=== PATIENT | male | born 1955 | race Caucasian/White ===

== ENCOUNTER 2022-08-22 10:12 | Outpatient (REF) | payer SELFPAY ==
--- NOTE | 2022-08-22 10:59 | MHC.AU.HFU ---
Hearing Instrument Follow-Up- Binaural Date of Visit: 08/22/22 Follow-Up Summary: Patient has been seeing Dr. Webb for bilateral otitis externa related to swimming. He swims at least 5 days a week and has been having trouble keeping the [id number] ear plugs in his ears. Extensively discussed how inflammation of ear canal may change the shape of the canals which leads to loose fit of the swim molds. Also discussed the molds will not keep water out if he dives, jumps in water, or goes deep in the pool. Patient understands the factors which may lead to the molds not staying in ears and assures the inflammation of canals has resolved. Dr. Webb performed cerumen removal last week and advised these custom swim molds. Took impressions of both ears without complication. Patient wants the floatable swim plugs with hadles in clear. PATIENT PAID $130.00 TODAY. Recommendations: Recommendations: Patient will be contacted when materials have arrived. PATIENT PAID $130.00 TODAY Diagnosis Code(s): Primary Diagnosis: H91.93 Unspecified Hearing Loss, Bilateral Secondary Diagnosis: H69.93 Unspecified Eustachian Tube Dysfunction, Bilateral Services Performed:Swim Mold (Quantity): 2 Signature: Provider: Estela Porter, [facility]
== END 2022-08-22 10:13 | disposition home or self-care (01) ==
LOC: HO.HAP 10:12
PROVIDERS: Visit Provider Otolaryngology
DX: Z46.1 Encounter for fitting and adjustment of hearing aid (principal); H91.93 Unspecified hearing loss, bilateral; H69.93 Unspecified Eustachian tube disorder, bilateral
CPT/HCPCS: V5264

== ENCOUNTER 2022-09-16 13:25 | Outpatient (REF) | payer SELFPAY ==
--- NOTE | 2022-09-16 13:58 | MHC.AU.HFU ---
Hearing Instrument Follow-Up- Binaural Date of Visit: 09/16/22 Follow-Up Summary: Fit custom swim plugs. Comfortable with good fit in office. Practiced insertion and removal. Adriano had some difficulty grasping the handle to remove the plugs due to the handles' size; however, he reported he will practice. Also suggested removing the plugs by placing a finger behind the plug and rotating forward. Reviewed situational use and not recommended for diving, jumping, etc. Advised of six-month warranty period for remake, if necessary. Recommendations: Adriano will call if problems with swim molds arise. Diagnosis Code(s):Primary Diagnosis: H91.93 Unspecified Hearing Loss, Bilateral; Secondary Diagnosis: H69.93 Unspecified Eustachian Tube Dysfunction, Bilateral Signature: Provider: Estela Scott, [facility]
== END 2022-09-16 13:26 | disposition home or self-care (01) ==
LOC: HO.HAP 13:25
PROVIDERS: Visit Provider Internal Medicine
DX: Z13.89 Encounter for screening for other disorder (principal)

== ENCOUNTER → 2022-10-26 08:56 | Outpatient (BNVA) | payer OTHER, SELFPAY | PROVIDERS: PCP Internal Medicine; Visit Provider Nurse Practitioner Family | DX: Z13.89 Encounter for screening for other disorder (principal) ==

== ENCOUNTER 2022-11-04 11:00 | Outpatient (RCR) | payer OTHER, SELFPAY ==
[2022-10-31 07:12] VITALS: BP 160/80; PULSE 66; O2SAT 96
== END 2023-03-02 14:47 | disposition home or self-care (01) ==
LOC: HO.PTWFD 11:00
PROVIDERS: Visit Provider Nurse Practitioner Family
DX: R42 Dizziness and giddiness (principal)
CPT/HCPCS: 95992; 97110; 97162

== ENCOUNTER 2025-08-07 08:57 | Outpatient (REF) | payer SELFPAY ==
--- OUTSIDE RECORDS SUMMARY | 2025-08-07 09:45 | XMS_ITS | Encounter Summary ---
Author Organization [facility] Address [address] [place] [phone] Phone Care Team Providers Care Proofreader Name Role Phone Phani Ruggiero MD Primary Care Provider Self-Referred, Patient Unavailable Unavailab Ozzy Gurrola MD Unavailable [phone] Edwin Mccormack MD Unavailable Justen Taylor MD Unavailable Encounter Details Date Type Department Care Team (Late st Contact Info) Description 07/11/2025 Orders Only [facility] at [address] [place] [address] Edwin Mccormack MD [address] [place] [phone] maria Social History Tobacco Use Types Packs/Day Years Used Date Smoking Tobacco: Never Smokeless Tobacco: Never Alcohol Use Standard Drinks/Week Comments Never 0 (1 standard drink = 0.6 oz pur e alcohol) Child or Family Care Answer Date Record ed Do you have problems with on e of the following making it difficult for you to work, study, or receive health care? No 06/03/2025 Education Answer Date Recorded Are you interested in more education? Not on mal e 05/30/2025 Are you concerned about learning? Not on file 05/30/2025 No 05/30/2025 No 05/30/2025 Food Answer Date Recorded Within the past 6 months we worried whether our food would run out before we got money to buy more. Never True 06/03/2025 Within the past 6 months the food we bought just didn't last and we didn't have enough money to get more. Never True Residential Stability Answer Date Recor ded What is your housing situation today? I have sin sing 06/03/2025 How many times have you move d in the past 12 months? Zero (I did not move) 06/03/2025 Paying for Meds Answer Date Recorded Do you have trouble paying for medicines? No 06/03/2025 Paying Utility Bills Answer Date Record ed Do you have trouble paying your heating or elect ricity bill? No 06/03/2025 Transportation Answer Date Recorded Has the lack of transportati on kept you from medical appointments or from getting medications? No 06/03/2025 Digital Access Answer Date Recorded No 05/30/2025 No 05/30/2025 Reliable internet access at home? Not on file 05/30/2025 Device with a working camera? Not on file Sex and Gender Information Value Date Recorded Sex Assigned at Male 05/30/2025 10:27 AM EDT Legal Sex Male 10:25 AM EDT Gender Identity Male 05/30/2025 10:27 AM EDT Sexual Orientation Straight 05/30/2025 10 :27 AM EDT documented as of this encounter Plan of Treatment Upcoming Encounters Date Type Department Care Team (Latest Contact Info) Description 08/20/2025 8:30 AM EST Pre-Admission Testing Pre Procedure Evaluation [address] [place] [id number] Adriano Calvillo MD [address] [place] [address] [email or web address] 08/20/2025 9:30 AM EST Blood Draw DF/[facility] at [facility], Phlebotomy Services [address] [place] [phone] Edwin Mccormack MD [address] [place] [phone] maria 08/20/2025 10:30 AM EST Office Visit [facility] [address] [facility] 2nd [place] [address] Edwin Mccormack MD [address] [place] [phone] [email or web address] 08/21/2025 Procedure Pass OR Admitting Dept - Virtual Department [address] [place] [phone] 08/21/2025 11:30 AM EST Hospital Encounter OR Admitting Dept - Virtual Department [address] [place] [phone] Adriano Calvillo MD [address] [place] [phone] [email or web address] 08/21/2025 11:30 AM EST - 08/21/2025 12:41 PM EST Surgery OR Admitting Dept - Virtual Department [address] [place] [id number] Adriano Calvillo MD [address] [place] [phone] [email or web address] TRANSPERINEAL INSERTION FIDUCIAL MARKERS PROSTATE GLAND Scheduled Procedures Name Priority Associated Diagnoses Date/Ti ga 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 08/21/2025 11:30 AM EST documented as of this encounter Visit Diagnoses Not on filedocumented in this encounter Care Teams Proofreader Relationship Specialty Start Date End Date Phani Ruggiero MD [address] [place] [phone] PCP - General Internal Medicine 05/30/25 Self-Referred, Patient Referring Physician 05/30/25 Ozzy Hernandez MD [address] [facility] [address] [place] [address] [email or web address] Referring Physician Urology 06/02/25 Edwin Mccormack MD [address] [place] [phone] [email or web address] Medical Oncology 06/02/25 Justen Taylor MD [address] [place] [phone] [email or web address] Radiation Oncology 07/01/25 documented as of this encounter Additional Source Comments The information contained in this document represents components of the legal health record. It is not the complete legal health record.[facility]
--- OUTSIDE RECORDS SUMMARY | 2025-08-07 09:46 | XMS_ITS | Clinical Summary ---
Author Organization [facility] Address [address] [employer] [employer] [facility] [address] [place] [phone] Phone Care Team Providers Care Central Supply Worker Name Role Phone Phani Ruggiero MD Primary Care Provider Self-Referred, Patient Unavailable Unavailab Ozzy Gurrola MD Unavailable Edwin Beard MD Unavailable Justen Taylor MD Unavailable Allergies Active Allergy Reactions Criticality Noted Date Comments Cyclobenzaprine 06/10/2025 Oxybutynin 06/10/2025 Penicillins Rash,Hives,Unknown Low 11/08/2017 Medications amLODIPine (NORVASC) 10 MG tablet Take 10 mg by mouth daily. Active valACYclovir (VALTREX) 1000 MG tablet Take 1,000 mg by mouth as directed. As needed for cold sores. Active triamcinolone acetonide 0.1 % cream Apply topically 2 (two) times a day. Active tadalafiL (CIALIS) 20 MG tablet Take 20 mg by mouth. Active spironolactone (ALDACTONE) 25 MG tablet Take 25 mg by mouth daily. Active metoprolol succinate (TOPROL-XL) 50 MG 24 hr tablet Take 50 mg by mouth daily. Active lisinopril-hydr oCHLOROthiazide (PRINZIDE,ZESTO RETIC) 20-12.5 mg per tablet Take 2 tablets by mouth daily. Active ibuprofen (ADVIL,MOTRIN) 800 MG tablet Take 800 mg by mouth every 6 (six) hours as needed. Active clindamycin (CLEOCIN) 300 MG capsule Take 300 mg by mouth as directed. Take prior to dental procedures. Active cholecalciferol (VITAMIN D3) 5,000 unit tablet Take 1,000 Units by mouth. Active tamsulosin (FLOMAX) 0.4 mg CapIndications: Prostate cancer Take 1 capsule (0.4 mg total) by mouth daily. Take separately from blood pressure medicines by at least 4 hours. 30 capsule 3 06/12/20 25 Active Additional Information Patient not taking.Reported on 08/05/2025 apalutamide (ERLEADA) 240 mg tabletIndicatio ns:Malignant neoplasm of prostate Take 1 tablet (240 mg total) by mouth daily. Follow instructions given by provider. 30 tablet 07/10/20 25 Active pantoprazole (PROTONIX) 20 MG tabletIndicatio ns:Gastroesopha geal reflux disease without esophagitis Take 1 tablet (20 mg total) by mouth daily. 30 tablet 07/14/20 25 Active ciprofloxacin HCl (CIPRO) 500 MG tablet Take 1 tablet (500 mg total) by mouth 2 (two) times a day for 1 day. 2 tablet 08/20/20 25 025 Active leuprolide acetate (LUPRON DEPOT, 6 MONTH, IM) Inject into the muscle. Active omeprazole (PRILOSEC) 20 MG capsule Take 20 mg by mouth daily. 04/30/20 25 025 Discontin ued(No CancelRX) Active Problems Problem Noted Date Diagnosed Date Malignant neoplasm of prostate 07/10/2025 Encounters Date Type Department Care Team Description 08/06/2025 Telephone [facility] at [address] [address] Edwin Beard MD 08/05/2025 Telephone [facility] and [facility] at [facility] [address] [address] Jacy Morris med question; Care Coordination 07/31/2025 Orders Only [facility] At [facility] Rad Onc [address] [place] [address] Pamella Guillen RN 07/25/2025 Telephone [facility] and [facility] at [address] [address] Edwin Beard MD Ksenia- questions; Care Coordination 07/24/2025 12:00 PM EDT Telemedicine - audio only DF/BWCC at [facility], [facility] [address] [place] [phone] Edwin Beard MD Leach, Melissa, CGC Malignant neoplasm of prostate (Primary Dx) 07/23/2025 9:00 AM EDT Office Visit [facility] Cancer Center At [facility] Rad Onc [address] [place] [address] Adriano Calvillo MD Malignant neoplasm of prostate (Primary Dx) 07/16/2025 Telephone [facility] at [address] [address] Alexandra Harris RN Oral Chemotherapy Compliance; Care Coordination 07/16/2025 Telephone Virtual Departent [address] [place] [phone] Jenni Polanco, PharmD Chemo Teaching ([facility]) 07/14/2025 Telephone [facility] and [facility] Center at [address] [address] Edwin Beard MD 07/11/2025 Orders Only [facility] and [facility] at [address] [address] Edwin Beard MD 07/10/2025 2:30 PM EDT Office Visit [facility] and [facility] Cancer [place] at [address] [address] Edwin Beard MD Malignant neoplasm of prostate (Primary Dx) 07/10/2025 Orders Only [facility] and [facility] at [address] [address] Edwin Beard MD Malignant neoplasm of prostate (Primary Dx) 07/08/2025 9:30 AM EDT Office Visit [facility] Department of Radiation Oncology, At [address] [address] Justen Taylor MD Prostate cancer (Primary Dx) 07/08/2025 Orders Only [facility] and [facility] at [address] [address] Kia Fong MD 07/08/2025 Telephone [facility] at [address] [address] Edwin Beard MD 07/07/2025 Telephone [facility] at [address] [address] Jacy Morris call for Alexandra; Care Coordination 07/03/2025 Telephone [facility] and [facility] at [address] [address] Vy Tang; Care Coordination 07/01/2025 Orders Only [facility] Department of Radiation Oncology, At [address] [address] Justen Taylor MD Prostate cancer (Primary Dx) 06/26/2025 Telephone [facility] and [facility] at [address] [address] Alexandra Harris RN Care Coordination 06/25/2025 Telephone [facility] at [address] [address] Vy Tang; Care Coordination 06/23/2025 Telephone [facility] and [facility] at [address] [address] Edwin Beard MD 06/12/2025 2:00 PM EDT Office Visit [facility] at [address] [address] Edwin Beard MD Prostate cancer (Primary Dx); Malignant neoplasm of prostate 06/12/[address] [facility] at [address] [address] Edwin Beard MD Prostate cancer (Primary Dx) 06/12/2025 Ancillary Orders DF IMG OUTSIDE IMG [address] [place] [address] Edwin Beard MD 06/12/2025 Ancillary Orders DF IMG OUTSIDE IMG [address] [place] [address] Edwin Beard MD 06/11/2025 Telephone [facility] and [facility] at [address] [address] Vy Tang 06/10/2025 11:00 AM EDT Nurse Only [facility] at [address] [address] Edwin Beard MD Macleod, Stacey J. RN 06/06/2025 Ancillary Procedure DF IMG OUTSIDE IMG [address] [place] [address] Edwin Beard MD 06/05/2025 11:57 AM EDT - 06/05/2025 11:59 PM EDT Hospital Encounter Central Pathology, [facility] [place] [address] [place] [address] Discharge Disposition: Home or Self Care 06/02/2025 Orders Only [facility] and [facility] at [facility] [address] [address] Leann Avila Prostate cancer (Primary Dx) 05/30/2025 Orders Only [facility] at [facility] [address] [address] Leann Avila from Last 3 Months Family History Medical History Relation Comments Cancer Father Melanoma Father Stroke Mother kidney cancer Son Relation Status Comments Father Mother Son Alive Social History Tobacco Use Types Packs/Day Years [...] Orientation Straight 05/30/2025 10 :27 AM EDT Last Filed Vital Signs Vital Sign Reading Time Taken Comments Blood Pressure 115/67 07/23/2025 9:06 AM EDT Pulse 57 07/23/2025 9:06 AM EDT Temperature 36.7 C (98 F) 07/10/2025 1:13 PM EDT Respiratory Rate 18 07/10/2025 1:13 PM EDT Oxygen Saturation 96% 07/23/2025 9:06 AM EDT Inhaled Oxygen Concentration - - Weight 95.7 kg (211 lb) 08/05/2025 10:54 AM EDT Height 172.7 cm (5' 8 ) 08/05/2025 10:54 AM EDT Body Mass Index 32.08 08/05/2025 10:54 AM EDT Plan of Treatment Upcoming Encounters Date Type Department Care Team (Latest Contact Info) Description 08/20/2025 8:30 AM EST Pre-Admission Testing Pre Procedure Evaluation [address] [place] [address] Adriano Calvillo MD [address] [place] [phone] [email or web address] 08/20/2025 9:30 AM EST Blood Draw DF/BWCC at [facility], Phlebotomy Services [address] [place] [address] Edwin Beard MD [address] [place] [phone] 08/20/2025 10:30 AM EST Office Visit [facility] at [facility] 20 [facility] [address] [place] [address] Edwin Beard MD [address] [place] [address] 08/21/2025 Procedure Pass OR Admitting Dept - Virtual Department [address] [place] [address] 08/21/2025 11:30 AM EST Hospital Encounter OR Admitting Dept - Virtual Department [address] [place] [address] Adriano Calvillo MD [address] [place] [phone] [email or web address] 08/21/2025 11:30 AM EST - 08/21/2025 12:41 PM EST Surgery OR Admitting Dept - Virtual Department [address] [place] [phone] Adriano Calvillo MD [address] [place] [phone] [email or web address] TRANSPERINEAL INSERTION FIDUCIAL MARKERS PROSTATE GLAND Scheduled Procedures Name Priority Associated Diagnoses Date/Ti me 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 08/21/2025 11:30 AM EST Health Maintenance Due Date Last Done Comments Adult Td,Tdap Booster 1955 LIPID PANEL 1955 DEPRESSION SCREENING 1965 HEPATITIS C SCREENING 1971 PNEUMOCOCCAL VACCINES (50+ years) (1 of 2 - PCV) 1972 COLONOSCOPY 1998 FIT TEST 1998 FOBT 1998 SIGMOIDOSCOPY 1998 VIRTUAL COLONOSCOPY 1998 ZOSTER VACCINES (1 of 2) 2015 10/06/2015 INFLUENZA VACCINE (#1) 2025 08/30/2022 COVID-19 VACCINE (4 - 2024-2 6 season) 2025 08/30/2022, 12/04/2020, 11/06/2020 COLOGUARD 08/30/2025 08/30/2022 COLORECTAL CANCER SCREENING 08/30/2025 CREATININE LEVEL 07/10/2026 07/10/2025 POTASSIUM LEVEL 07/10/2026 07/10/2025 RSV VACCINE (1 - 1-dose 75+ series) 2028 SMOKING STATUS SCREENING (On ce After 26 Yrs) Completed 08/05/2025 HEPATITIS A VACCINES Aged Out No long er eligible based on patient's age to complete this topic HIB VACCINES Aged Out No longer eligi ble based on patient's age to complete this topic MENINGOCOCCAL VACCINES (ACWY) Aged Out No longer eligible based on patient's age to complete this topic MENINGOCOCCAL VACCINES (B) Aged Out N o longer eligible based on patient's age to complete this topic Medical Devices Implanted Type Area Enterprise Account Manager Device Identifier Shelf Expiration Date Model / Serial / Lot Mesh Mesh Prosthetic Joint Prosthetic Joint Right: Knee Procedures Procedure Name Priority Date/Time Associated Diagnosis Comments PSA Routine 07/10/2025 12:49 PM EDT Prostate cancer TESTOSTERONE, TOTAL Routine 07/10/2025 1 2:49 PM EDT Prostate cancer COMPREHENSIVE METABOLIC PANEL Routine 07/10/2025 12:49 PM EDT Prostate cancer CBC AND DIFFERENTIAL Routine 07/10/2025 12:49 PM EDT Prostate cancer OUTSIDE MR HEAD/NECK REPORT ONLY Routine 07/08/2025 12:26 PM EDT OUTSIDE MR SPINE REPORT ONLY Routine 07/08/2025 12:25 PM EDT OUTSIDE IMAGING 07/04/2025 OUTSIDE MR IMAGING REPORT ONLY Routine 06/12/2025 3:42 PM EDT PSA Routine 06/12/2025 3:17 PM EDT Malignant neoplasm of prostate OUTSIDE IMAGING 06/06/2025 NM PET WHOLE BODY OUTSIDE (NO INTERPRETATION) Routine 06/06/2025 12:00 AM EDT OUTSIDE PATHOLOGY 05/29/2025 OUTSIDE PATHOLOGY REVIEW Routine 05/16/2025 12:00 AM EDT OUTSIDE PATHOLOGY 05/16/2025 OUTSIDE LAB 05/16/2025 from Last 3 Months Results * (ABNORMAL) PSA (07/10/2025 12:49 PM EDT) Only the most recent of2 resultswithin the time period is included. Prostate Specific Antigen 12.37(H) <0.04 - 4.0 ng/mL [facility] Comment: Assay performed on the [employer] utilizing direct chemiluminescent methodology. Patient results determined by assays using different manufacturers or methods may not be comparable. Although this assay has an undetectable range of <0.04 ng/mL, readings of 0.04 or 0.05 ng/mL have been measured in patients clinically deemed unlikely to have significant levels of PSA (e.g. post-menopausal females or males with undetectable PSA on another method). Therefore, values in this range should be interpreted with caution. 07/10/2025 12:4 9 PM EDT us Edwin Beard MD LAB BLOOD ORDERABLES Final Result [place] [id number], [facility] [phone] * (ABNORMAL) Comprehensive metabolic panel (07/10/2025 12:49 PM EDT) Sodium 140 136 - 145 mmol/L [facility] Potassium 4.4 3.5 - 5.1 mmol/L [facility] Chloride 103 98 - 107 mmol/L [facility] Carbon Dioxide 28 20 - 31 mmol/L [facility] Anion Gap 9 5 - 15 mmol/L [facility] Glucose Random 107(H) 74 - 106 mg/dL [facility] Blood Urea Nitrogen 16 9 - 23 mg/dL [facility] Serum Creatinine 1.30 0.70 - 1.30 mg/dL [facility] Glomerular Filtration Rate Est 59(L) >60 [facility] Comment: Units - mL/min/1.73 msq CKD-EPI Creatinine Equation (2020) used as recommended by The [employer]. Start date (11/22/22). Calcium 9.6 8.7 - 10.4 mg/dL [facility] Total Protein 7.7 5.7 - 8.2 g/dL [facility] Albumin Level 4.6 3.2 - 4.8 g/dL [facility] Globulin 3.0 2.0 - 3.5 g/dL [facility] Alkaline Phosphatase 82 46 - 116 U/L [facility] ALT 33 7 - 40 U/L [facility] AST 25 13 - 40 U/L [facility] Bilirubin Total 1.0 0.3 - 1.2 mg/dL [facility] 07/10/2025 12:4 9 PM EDT us Edwin Beard MD LAB BLOOD ORDERABLES Final Result [facility] [address] [place] [address], [facility] [phone] * (ABNORMAL) CBC and differential (07/10/2025 12:49 PM EDT) WBC 8.1 4.0 - 11.0 10*3/uL [facility] RBC 4.37 4.2 - 6.0 10*6/uL [facility] HGB 14.2 13.0 - 18.0 g/dL [facility] HCT 39.7 39.0 - 54.0 % [facility] MCV 90.8 80.0 - 96.0 fL [facility] MCH 32.5(H) 27.0 - 31.0 pg [facility] MCHC 35.8 32.0 - 36.0 g/dL [facility] RDW-CV 11.9(L) 12.8 - 18.4 % [facility] PLT 227 140 - 400 10*3/uL [facility] MPV 10.2 8.0 - 12.0 fL [facility] Neut Pct Auto 65.0 50 - 70 % [facility] Lymp Pct Auto 22.1(L) 25 - 45 % [facility] Amelia Pct Auto 10.1 4 - 13 % [facility] Eos Pct Auto 2.0 0 - 5 % [facility] Baso Pct Auto 0.6 0 - 2 % [facility] I.G. Pct Auto 0.2 0.0 - 0.5 % [facility] NRBC Pct Auto 0.0 0.0 - 0.2 % [facility] Neut Abs Auto 5.2(H) 2.2 - 4.8 10*3/uL [facility] Lymph Abs Auto 1.8 1.3 - 2.9 10*3/uL [facility] Amelia Abs Auto 0.81(H) 0.3 - 0.8 10*3/uL [facility] Eos Abs Auto 0.2 0.0 - 0.2 10*3/uL [facility] Baso Abs Auto 0.1 0.0 - 0.1 10*3/uL [facility] I.G. Abs Auto 0.02 0.00 - 0.08 10*3/uL [facility] NRBC Abs Auto 0.00 0.000 - 0.012 10*3/uL [facility] Blood 07/10/2025 12:4 9 PM EDT us Edwin Beard MD LAB BLOOD ORDERABLES Final Result [facility] [address] [place] [id number], [facility] [phone] * Testosterone, total (07/10/2025 12:49 PM EDT) Testosterone Total 251 188 - 684 ng/dL [facility] Comment:Correction in Refere nce Range 19 November 2024 07/10/2025 12:4 9 PM EDT us Edwin Beard MD LAB BLOOD ORDERABLES Final Result [facility] [address] [place] [id number], [facility] [phone] * Outside MR Head/Neck Report Only (07/08/2025 12:26 PM EDT) us Historical Provider IMG MR HEAD/NECK Final Re sult * Outside MR Spine Report Only (07/08/2025 12:25 PM EDT) us Historical Provider IMG MR SPINE Final Res ult * Outside Imaging Report Only (07/04/2025) us Scanning Interface Provider IMG XR CHEST Danielle l Result * Outside MR Imaging Report Only (06/12/2025 3:42 PM EDT) us Historical Provider IMG MR Final Res ult * Outside Imaging Report Only (06/06/2025) us Scanning Interface Provider IMG XR CHEST Danielle l Result * NM PET Whole Body Outside (No Interpretation) (06/06/2025 12:00 AM EDT) Other Narrative [facility] - 06/12/2025 11:53 AM EDT This study is for PACS storage only and not for interpretation. us Edwin Beard MD IMG OUTSIDE IMAGING W /OUT INTERPRETATION Final Result [facility] * Outside Pathology (05/29/2025) Only the most recent of2 resultswithin the time period is included. us Scanning Interface Provider PATHOLOGY ORDERABLES Final Result * Outside Lab (05/16/2025) us Scanning Interface Provider LAB BLOOD ORDERABLES Final Result * Outside Pathology Review (05/16/2025 12:00 AM EDT) Final Diagnosis CONSULT SLIDES FROM [place]: 1. PROSTATE, CORE NEEDLE BIOPSIES ([id number]; 05/16/25): A. LEFT MIDDLE APEX: Benign prostatic tissue. B. LEFT LATERAL APEX: PROSTATIC ADENOCARCINOMA, [place] score 4+5=9 (Grade Group 5), involving 80% of one (1) core. No perineural invasion. C. LEFT MIDDLE MIDDLE: PROSTATIC ADENOCARCINOMA, [place] score 4+5=9 (Grade Group 5), involving 90% of one (1) core. No perineural invasion. D. LEFT LATERAL MIDDLE: PROSTATIC ADENOCARCINOMA, Radha score 4+5=9 (Grade Group 5), involving 100% of one (1) core. No perineural invasion. E. LEFT MIDDLE BASE: PROSTATIC ADENOCARCINOMA, [place] score 4+5=9 (Grade Group 5), involving 15% of one (1) core. No perineural invasion. F. LEFT LATERAL BASE: PROSTATIC ADENOCARCINOMA, [place] score 4+5=9 (Grade Group 5), involving 90% of one (1) core. No perineural invasion. G. RIGHT MIDDLE APEX: Benign prostatic tissue. H. RIGHT LATERAL APEX: PROSTATIC ADENOCARCINOMA, Radha score 4+3=7 (Grade Group 3), involving 20% of one (1) core. [place] pattern 4 comprises 90% of the tumor. No perineural invasion. I. RIGHT MIDDLE MIDDLE: Benign prostatic tissue. J. RIGHT LATERAL MIDDLE: Benign prostatic tissue. K. RIGHT MIDDLE BASE: PROSTATIC ADENOCARCINOMA, [place] score 4+5=9 (Grade Group 5), involving 100% of one (1) core. No perineural invasion. L. RIGHT LATERAL BASE: PROSTATIC ADENOCARCINOMA, Radha score 4+5=9 (Grade Group 5), involving 90% of one (1) core. No perineural invasion. [facility] Clinical History None provided. [facility] Tissue Submitted Consult slides. [facility] Gross Description Received from [facility], Department of Pathology, [address] [place] [id number], [place] are twenty-four (24) slides. Twenty four (24) stained slides are labeled [id number] and sublabeled A1-1 , A1-4 , B1-1 , B1-4 , C1-1 , C1-4 , D1-1 , D1-4 , E1-1 , E1-4 , F1-1 , F1-4 , G1-1 , G1-4 , H1-1 , H1-4 , I1-1 , I1-4 , J1-1 , J1-4 , K1-1 , K1-4 , L1-1 and L1-4 which correspond to prostate core biopsies obtained on 05/16/25, according to the accompanying pathology report bearing the patient's name and date of . By his/her signature below, the senior physician certifies that he/she personally conducted a microscopic examination ( gross only exam if so stated) of the described specimen(s) and rendered or confirmed the diagnosis(es) related thereto. [facility] Procedure Comments ProcSpecimen Accession - [facility] PATHOLOGY Report Accession No: [id number] Date: 1955 Sex: Male [facility] Department of Pathology [address] [place] [address] CLIA License No.: [id number] Beating Machine Operator: Dr. Vito Nieves MD, PhD Physician: EDWIN BEARD MD Pathologist: Kajal Oquendo M.D., Ph.D. PATHOLOGIC DIAGNOSIS: CONSULT SLIDES FROM [place]: 1. PROSTATE, CORE NEEDLE BIOPSIES ([id number]; 05/16/25): A. LEFT MIDDLE APEX: Benign prostatic tissue. B. LEFT LATERAL APEX: PROSTATIC ADENOCARCINOMA, [place] score 4+5=9 (Grade Group 5), involving 80% of one (1) core. No perineural invasion. C. LEFT MIDDLE MIDDLE: PROSTATIC ADENOCARCINOMA, Radha score 4+5=9 (Grade Group 5), involving 90% of one (1) core. No perineural invasion. D. LEFT LATERAL MIDDLE: PROSTATIC ADENOCARCINOMA, [place] score 4+5=9 (Grade Group 5), involving 100% of one (1) core. No perineural invasion. E. LEFT MIDDLE BASE: PROSTATIC ADENOCARCINOMA, Radha score 4+5=9 (Grade Group 5), involving 15% of one (1) core. No perineural invasion. F. LEFT LATERAL BASE: PROSTATIC ADENOCARCINOMA, Radha score 4+5=9 (Grade Group 5), involving 90% of one (1) core. No perineural invasion. G. RIGHT MIDDLE APEX: Benign prostatic tissue. H. RIGHT LATERAL APEX: PROSTATIC ADENOCARCINOMA, [place] score 4+3=7 (Grade Group 3), involving 20% of one (1) core. Radha pattern 4 comprises 90% of the tumor. No perineural invasion. I. RIGHT MIDDLE MIDDLE: Benign prostatic tissue. J. RIGHT LATERAL MIDDLE: Benign prostatic tissue. K. RIGHT MIDDLE BASE: PROSTATIC ADENOCARCINOMA, [place] score 4+5=9 (Grade Group 5), involving 100% of one (1) core. No perineural invasion. L. RIGHT LATERAL BASE: PROSTATIC ADENOCARCINOMA, [place] score 4+5=9 (Grade Group 5), involving 90% of one (1) core. No perineural invasion. CLINICAL DATA: History: None provided. TISSUE SUBMITTED: Consult slides. GROSS DESCRIPTION: Received from [facility], Department of Pathology, [address] [place] [address] are twenty-four (24) slides. Twenty four (24) stained slides are labeled [id number] and sublabeled A1-1 , A1-4 , B1-1 , B1-4 , C1-1 , C1-4 , D1-1 , D1-4 , E1-1 , E1-4 , F1-1 , F1-4 , G1-1 , G1-4 , H1-1 , H1-4 , I1-1 , I1-4 , J1-1 , J1-4 , K1-1 , K1-4 , L1-1 and L1-4 which correspond to prostate core biopsies obtained on 05/16/25, according to the accompanying pathology report bearing the patient's name and date of . By his/her signature below, the senior physician certifies that he/she personally conducted a microscopic examination ( gross only exam if so stated) of the described specimen(s) and rendered or confirmed the diagnosis(es) related thereto. Final Diagnosis by Kajal Oquendo M.D., Ph.D., Electronically signed on Monday June 09, 2025 at 04:42:48PM [facility] Conversion Type (Other) 05/16/2025 06/05/2025 Edwin Beard MD PATHOLOGY ORDERABLES Edited Result - Final [facility] from Last 3 Months Insurance MEDICARE PART A & B [facility] [employer] MEDICARE SUPPLEMENT MEDICARE PART A & B [facility] [employer] MEDICARE SUPPLEMENT MEDICARE PART A & B [facility] MEDICARE SUPPLEMENT MEDICARE PART A & B [facility] MEDICARE SUPPLEMENT MEDICARE PART A & B [facility] [employer] MEDICARE SUPPLEMENT MEDICARE PART A & B [facility] [employer] MEDICARE SUPPLEMENT Care Teams Central Supply Worker Relationship Specialty Start Date End Date Phani Ruggiero MD [address] [facility] [address] [place] [address] PCP - General Internal Medicine 05/30/25 Self-Referred, Patient Referring Physician 05/30/25 Ozzy Hernandez MD [address] [facility] [address] [place] [address] [email or web address] Referring Physician Urology 06/02/25 Edwin Beard MD [address] [place], [place] [phone] Medical Oncology 06/02/25 Justen Taylor MD [address] [place] [phone] [email or web address] Radiation Oncology 07/01/25 Additional Source Comments The information contained in this document represents components of the legal health record. It is not the complete legal health record.[facility]
--- OUTSIDE RECORDS SUMMARY | 2025-08-07 09:46 | XMS_ITS | Encounter Summary ---
Author Organization [facility] Address [address] [place] [address] Care Team Providers Care Photoradio Operator Name Role Phone Phani Adams MD Primary Care Provider Encounter Details Date Type Department Care Team (Late Contact Info) Description 07/22/2025 Results Follow-Up [facility] - [address] [place] [address] Dana Chong NP [address] [place] [address] Dr [address] [place] [address] Social History Tobacco Use Types Packs/Day Years Used Date Smoking Tobacco: Never Smokeless Tobacco: Never Alcohol Use Standard Drinks/Week Comments Not Currently 0 (1 standard drink = 0.6 oz pur e alcohol) Sex and Gender Information Value Date Recorded Sex Assigned at Not on file Legal Sex Male 2:47 AM EST Gender Identity Not on file Sexual Orientation Not on file documented as of this encounter Plan of Treatment Upcoming Encounters Date Type Department Care Team (Late Contact Info) Description 08/12/2025 11:00 AM EDT Consult Gastroenterology - [address] [facility] [address] [place] [phone] Jean Osuna MD [address] [facility] [address] [place] [address] documented as of this encounter Visit Diagnoses Not on filedocumented in this encounter Care Teams Photoradio Operator Relationship Specialty Start Date End Date Phani Adams MD [address] [place] [address] PCP - General Neurosurgeon 06/05/17 documented as of this encounter
--- OUTSIDE RECORDS SUMMARY | 2025-08-07 09:46 | XMS_ITS | Encounter Summary ---
Author Organization [facility] Address [address] [facility] [address] [place] [address] Phone Care Team Providers Care Peanut Picker Name Role Phone Phani Ruggiero MD Primary Care Provider Self-Referred, Patient Unavailable Unavailab Ozzy Gurrola MD Unavailable [phone] Edwin Mccormack MD Unavailable Justen Taylor MD Unavailable Reason for Referral * MRI/CAT Scan - Authorized Specialty Diagnoses / Procedures Referred By Ju mcgowan Referred To Contact Radiology Procedures Outside MR Head/Neck Report Only [facility] at [address] [address] Phone: tel: fax:[phone] Referral ID Status Reason Start Date Expiration Date V isits Requested Visits Authorized [id number] Authorized 07/08/2025 1 1 * MRI/CAT Scan - Authorized Specialty Diagnoses / Procedures Referred By Ju mcgowan Referred To Contact Radiology Procedures Outside MR Spine Report Only [facility] at [address] [address] Phone: tel: fax: Referral ID Status Reason Start Date Expiration Date V isits Requested Visits Authorized [id number] Authorized 07/08/2025 1 1 Encounter Details Date Type Department Care Team (Late st Contact Info) Description 07/08/2025 Orders Only [facility] [address] [place] [address] ProviderKia [place] [address] Social History Tobacco Use Types Packs/Day Years [...] AM EST Pre-Admission Testing Pre Procedure Evaluation [address] [place] [address] Adriano Calvillo MD [address] [place] [phone] [email or web address] 08/20/2025 9:30 AM EST Blood Draw DF/BWCC at [facility], Phlebotomy Services [address] [place] [address] Edwin Mccormack MD [address] [place] [phone] maria 08/20/2025 10:30 AM EST [facility] at [address] [address] Edwin Mccormack MD [address] [place] [phone] maria 08/21/2025 Procedure Pass OR Admitting Dept - Virtual Department [address] [place] [phone] 08/21/2025 11:30 AM EST Hospital Encounter OR Admitting Dept - Virtual Department [address] [place] [address] Adriano Calvillo MD [address] [place] [phone] [email or web address] 08/21/2025 11:30 AM EST - 08/21/2025 12:41 PM EST Surgery OR Admitting Dept - Virtual Department [address] [place] [address] Adriano Calvillo MD [address] [place] [address] [email or web address] TRANSPERINEAL INSERTION FIDUCIAL MARKERS PROSTATE GLAND Scheduled Procedures Name Priority Associated Diagnoses Date/Ti me 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 08/21/2025 11:30 AM EST documented as of this encounter Procedures Procedure Name Priority Date/Time Associated Diagnosis Comments OUTSIDE MR HEAD/NECK REPORT ONLY Routine 07/08/2025 12:26 PM EDT OUTSIDE MR SPINE REPORT ONLY Routine 07/08/2025 12:25 PM EDT documented in this encounter Results * Outside MR Head/Neck Report Only (07/08/2025 12:26 PM EDT) Historical Provider MD FONTAINE MR HEAD/NECK Final Re sult * Outside MR Spine Report Only (07/08/2025 12:25 PM EDT) Historical Provider MD FONTAINE MR SPINE Final Res ult documented in this encounter Visit Diagnoses Not on filedocumented in this encounter Care Teams Peanut Picker Relationship Specialty Start Date End Date Phani Ruggiero MD [address] [place] [address] [place] [address] PCP - General Internal Medicine 05/30/25 Self-Referred, Patient Referring Physician 05/30/25 Ozzy Hernandez MD 100 [facility] [address] [place] [address] [email or web address] Referring Physician Urology 06/02/25 Edwin Mccormack MD [address] [place] [phone] Medical Oncology 06/02/25 Justen Taylor MD [address] [place] [address] [email or web address] Radiation Oncology 07/01/25 documented as of this encounter Additional Source Comments The information contained in this document represents components of the legal health record. It is not the complete legal health record.[facility]
--- OUTSIDE RECORDS SUMMARY | 2025-08-07 09:46 | XMS_ITS | Encounter Summary ---
Author Organization [facility] Address [address] [place] [address] Care Team Providers Care Absorption Plant Operator Name Role Phone Phani Adams MD Primary Care Provider [phone] Encounter Details Date Type Department Care Team (Late Contact Info) Description 05/19/2025 Lab Requisition [facility] - Main Lab [address] [facility] [place] [address] Ozzy Hernandez MD [address] [facility] [address] [place] [address] Benign prostatic hyperplasia without lower urinary tract symptoms Social History Tobacco Use Types Packs/Day Years [...] EDT Consult Gastroenterology - [address] [facility] [address] [place] [phone] Jean Osuna MD 299 [facility] [address] [place], [place] [phone] documented as of this encounter Procedures Procedure Name Priority Date/Time Associated Diagnosis Comments TISSUE EXAM Routine 05/16/2025 Benign prostatic hyperplasia without lower urinary tract symptoms documented in this encounter Results * Tissue Exam (05/16/2025) Final Diagnosis A. Prostate, Left Middle [place] (Core Biopsy): - BENIGN PROSTATE TISSUE. B. Prostate, Left Lateral [place] (Core Biopsy): -PROSTATIC ACINAR ADENOCARCINOMA, CONVENTIONAL (USUAL) TYPE -Radha score (4+5)=9, Grade group 5 Total Number of Cores: 1 Number of Positive Cores: 1 Percentage of Prostatic Tissue Continuously Involved by Tumor: 70% C. Prostate, Left Middle Middle (Core Biopsy): -PROSTATIC ACINAR ADENOCARCINOMA, CONVENTIONAL (USUAL) TYPE -Holiday score (5+4)=9, Grade group 5 Total Number of Cores: 1 Number of Positive Cores: 1 Percentage of Prostatic Tissue Discontinuously Involved by Tumor: 100% D. Prostate, Left Lateral Middle (Core Biopsy): -PROSTATIC ACINAR ADENOCARCINOMA, CONVENTIONAL (USUAL) TYPE -Radha score (5+5)=10, Grade group 5 Total Number of Cores: 1 Number of Positive Cores: 1 Percentage of Prostatic Tissue Continuously Involved by Tumor: 100% E. Prostate, Left Middle Base (Core Biopsy): -PROSTATIC ACINAR ADENOCARCINOMA, CONVENTIONAL (USUAL) TYPE -Radha score (5+4)=9, Grade group 5 Total Number of Cores: 1 Number of Positive Cores: 1 Percentage of Prostatic Tissue Discontinuously Involved by Tumor: 80% F. Prostate, Left Lateral Base (Core Biopsy): -PROSTATIC ACINAR ADENOCARCINOMA, CONVENTIONAL (USUAL) TYPE -Holiday score (4+5)=9, Grade group 5 Total Number of Cores: 1 Number of Positive Cores: 1 Percentage of Prostatic Tissue Continuously Involved by Tumor: 90% G. Prostate, Right Middle [place] (Core Biopsy): - BENIGN PROSTATE TISSUE. H. Prostate, Right Lateral [place] (Core Biopsy): -PROSTATIC ACINAR ADENOCARCINOMA, CONVENTIONAL (USUAL) TYPE -Holiday score (5+3)=8, Grade group 4 Total Number of Cores: 1 Number of Positive Cores: 1 Percentage of Prostatic Tissue Continuously Involved by Tumor: 10% I. Prostate, Right Middle Middle (Core Biopsy): - BENIGN PROSTATE TISSUE. J. Prostate, Right Lateral Middle (Core Biopsy): - BENIGN PROSTATE TISSUE. K. Prostate, Right Middle Base (Core Biopsy): -PROSTATIC ACINAR ADENOCARCINOMA, CONVENTIONAL (USUAL) TYPE -Holiday score (4+5)=9, Grade group 5 Total Number of Cores: 1 Number of Positive Cores: 1 Percentage of Prostatic Tissue Continuously Involved by Tumor: 100% L. Prostate, Right Lateral Base (Core Biopsy): -PROSTATIC ACINAR ADENOCARCINOMA, CONVENTIONAL (USUAL) TYPE -Radha score (4+5)=9, Grade group 5 Total Number of Cores: 1 Number of Positive Cores: 1 Percentage of Prostatic Tissue Continuously Involved by Tumor: 90% 05/22/2025 12:38 PM EDT [facility] at 1238 EDT Clinical Information Elevated PSA N40.0 PSA: 7.5 (03/01/25) [id number] 05/22/2025 12:38 PM EDT [facility] Gross Description A. Prostate, Left Middle Inwood Biopsy: Received, properly labeled, are two H and E stained slides and two unstained slides. B. Prostate, Left Lateral Inwood Biopsy: Received, properly labeled, are two H and E stained slides and two unstained slides. C. Prostate, Left Middle Middle Biopsy: Received, properly labeled, are two H and E stained slides and two unstained slides. D. Prostate, Left Lateral Middle Biopsy: Received, properly labeled, are two H and E stained slides and two unstained slides. E. Prostate, Left Middle Base Biopsy: Received, properly labeled, are two H and E stained slides and two unstained slides. F. Prostate, Left Lateral Base Biopsy: Received, properly labeled, are two H and E stained slides and two unstained slides. G. Prostate, Right Middle Inwood Biopsy: Received, properly labeled, are two H and E stained slides and two unstained slides. H. Prostate, Right Lateral Inwood Biopsy: Received, properly labeled, are two H and E stained slides and two unstained slides. I. Prostate, Right Middle Middle Biopsy: Received, properly labeled, are two H and E stained slides and two unstained slides. J. Prostate, Right Lateral Middle Biopsy: Received, properly labeled, are two H and E stained slides and two unstained slides. K. Prostate, Right Middle Base Biopsy: Received, properly labeled, are two H and E stained slides and two unstained slides. L. Prostate, Right Lateral Base Biopsy: Received, properly labeled, are two H and E stained slides and two unstained slides. /al 05/22/2025 12:38 PM EDT [facility] Disclaimer Unless otherwise specified, all tissue is 10% NB formalin fixed and paraffin embedded. Technical pathology services provided by [facility] at [address], [place] [address] (CLIA #[id number]/Rona Waldrop MD, Knitting Machine Tender) 05/22/2025 12:38 PM EDT [facility] Tissue Prostate / Unknown 05/16/20252024 4:11 PM EDT Tissue specimen (specimen) Prostate / Unknown 05/16/2025 05/19/2025 4: 13 PM EDT Tissue specimen (specimen) Prostate / Unknown 05/16/2025 05/19/2025 4: 13 PM EDT Tissue specimen (specimen) Prostate / Unknown 05/16/2025 05/19/2025 4: 13 PM EDT Tissue specimen (specimen) Prostate / Unknown 05/16/2025 05/19/2025 4: 13 PM EDT Tissue specimen (specimen) Prostate / Unknown 05/16/2025 05/19/2025 4: 13 PM EDT Tissue specimen (specimen) Prostate / Unknown 05/16/2025 05/19/2025 4: 13 PM EDT Tissue specimen (specimen) Prostate / Unknown 05/16/2025 05/19/2025 4: 13 PM EDT Tissue specimen (specimen) Prostate / Unknown 05/16/2025 05/19/2025 4: 13 PM EDT Tissue specimen (specimen) Prostate / Unknown 05/16/2025 05/19/2025 4: 13 PM EDT Tissue specimen (specimen) Prostate / Unknown 05/16/2025 05/19/2025 4: 13 PM EDT Tissue specimen (specimen) Prostate / Unknown 05/16/2025 05/19/2025 4: 13 PM EDT Ozzy Hernandez MD LAB PATHOLOGY ORDERABLES Final Result [facility] [address] [place] [address], documented in this encounter Visit Diagnoses Diagnosis Benign prostatic hyperplasia without lower urinary tract symptoms documented in this encounter Care Teams Absorption Plant Operator Relationship Specialty Start Date End Date Phani Adams MD [address] [place] [address] PCP - General Punch Machine Operator 06/05/17 documented as of this encounter
--- OUTSIDE RECORDS SUMMARY | 2025-08-07 09:46 | XMS_ITS | Clinical Summary ---
Author Organization [facility] Address [address] [place] [address] Care Team Providers Care Manager Sap Name Role Phone Phani Ruggiero MD Primary Care Provider [phone] Allergies Active Allergy Reactions Criticality Noted Date Comments Penicillins 11/08/2017 Medications Medication Sig Dispensed Refills Start Date End Date Status CIALIS 20 MG tablet 1 06/06/2017 Active lisinopril-hydroch lorothiazide (PRINZIDE,ZESTORET IC) tablet 20-12.5 mg 1 06/06/2017 Active ibuprofen (ADVIL,MOTRIN) 800 MG tablet 0 06/17/2017 Active NEXIUM 24HR 20 MG capsule 0 06/06/2017 Active amLODIPine (NORVASC) tablet 5 mg 1 06/06/2017 Active traMADol (ULTRAM) 50 MG tablet Take 50 mg by mouth every 6 (six) hours. 0 09/22/2017 Active celecoxib (CELEBREX) 200 MG capsule 0 09/29/2017 Active Diclofenac Sodium 1 % GEL topical apply 4 grams to affected area once daily 100 g 3 04/25/2018 Active gabapentin (NEURONTIN) 300 MG capsule TAKE 1 CAPSULE BY MOUTH 4 TIMES A DAY FOR 10 DAYS 0 12/15/2019 Active meloxicam (MOBIC) 15 MG tablet Take 15 mg by mouth daily. 0 12/20/2019 Active oxyCODONE (ROXICODONE) 5 MG immediate release tablet TAKE 1 TO 2 TABLETS BY MOUTH EVERY 4 TO 6 HOURS NEEDED 0 12/09/2019 Active tamsulosin (FLOMAX) 0.4 MG CAPS Take 0.4 mg by mouth. 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 Knee stiffness, right 04/10/2018 Status post total right knee replacement 018 Chronic pain of right knee 07/27/2017 Family History Medical History Relation Name Comments Cancer Father Relation Name Status Comments Father Social History Tobacco Use Types Packs/Day Years Used Date Smoking Tobacco: Unknown Sex and Gender Information Value Date Recorded Sex Assigned at Not on file Gender Identity Not on file Sexual Orientation Not on file Last Filed Vital Signs Vital Sign Reading Time Taken Comments Blood Pressure - - Pulse - - Temperature - - Respiratory Rate - - Oxygen Saturation - - Inhaled Oxygen Concentration - - Weight 93 kg (205 lb) 06/27/2017 1:23 PM EDT Height 177.8 cm (5' 10 ) 06/27/2017 1:23 PM EDT Body Mass Index 29.41 06/27/2017 1:23 PM EDT Plan of Treatment Health Maintenance Due Date Last Done Comments Hepatitis C Screening 1955 COVID-19 Vaccine (#1) 05/31/1954 Depression Screening 1965 Preventative Health Evaluation 1971 DTap / Tdap / Td (1 - Tdap) 1972 Colon Cancer Screening (Colonoscopy) 1998 Shingrix-Zoster Vaccine (1 of 2) 2003 Fall Risk Assessment 2018 Pneumococcal Vaccine (1 of 1 - PCV) 2018 Influenza Vaccine (#1) 2025 RSV Adult > 60+ Yrs or Pregn ant (1 - 1-dose 75+ series) 2028 Hepatitis B Vaccines Aged Out No long er eligible based on patient's age to complete this topic RSV Ped < 20 months Aged Out No longe r eligible based on patient's age to complete this topic Care Teams Manager Sap Relationship Specialty Start Date End Date Phani Ruggiero MD [address] [place] [address] PCP - General Tower Watchman 06/05/17
--- OUTSIDE RECORDS SUMMARY | 2025-08-07 09:46 | XMS_ITS | Encounter Summary ---
Author Organization [facility] Address [address] [place] [address] Phone Care Team Providers Care Locket Maker Name Role Phone Phani Ruggiero MD Primary Care Provider Self-Referred, Patient Unavailable Unavailab Ozzy Gurrola MD Unavailable Edwin Mccormack MD Unavailable Justen Taylor MD Unavailable Reason for Visit * Reason Onset Date Comments Ksenia 06/11/2025 Encounter Details Date Type Department Care Team (Late st Contact Info) Description 06/11/2025 Telephone [facility] at [address] [address] [address] [place] [phone] [email or web address] Ksenia Social History Tobacco Use Types Packs/Day Years [...] AM EDT documented as of this encounter Progress Notes * Vy Tang - 06/11/2025 10:29 AM EDT Patient Alarm Installer Message: Caller Requesting callback? Yes Reason for Call: disk Pt called and was making sure the office received the disk for tomorrow appointment pt would like acall back documented in this encounter Plan of Treatment Upcoming Encounters Date Type Department Care Team (Latest Contact Info) Description 08/20/2025 8:30 AM EST Pre-Admission Testing Pre Procedure Evaluation [address] [place] [address] [phone] Adriano Calvillo MD [address] [place] [phone] [email or web address] 08/20/2025 9:30 AM EST Blood Draw DF/BWCC at [facility], Phlebotomy Services [address] [place] [address] Edwin Mccormack MD [address] [place] [phone] [email or web address] 08/20/2025 10:30 AM EST Office Visit [facility] at [address] [address] Edwin Mccormack MD [address] [place] [phone] [email or web address] 08/21/2025 Procedure Pass OR Admitting Dept - Virtual Department [address] [place] [phone] 08/21/2025 11:30 AM EST Hospital Encounter OR Admitting Dept - Virtual Department [address] [place] [address] Adriano Calvillo MD [address] [place] [phone] [email or web address] 08/21/2025 11:30 AM EST - 08/21/2025 12:41 PM EST Surgery OR Admitting Dept - Virtual Department [address] [place] [address] Adriano Calvillo MD [address] [place] [phone] [email or web address] TRANSPERINEAL INSERTION FIDUCIAL MARKERS PROSTATE GLAND Scheduled Procedures Name Priority Associated Diagnoses Date/Ti ky 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 08/21/2025 11:30 AM EST documented as of this encounter Visit Diagnoses Not on filedocumented in this encounter Care Teams Locket Maker Relationship Specialty Start Date End Date Phani Ruggiero MD [address] [place] [address] [address] [place] [address] PCP - General Internal Medicine 05/30/25 Self-Referred, Patient Referring Physician 05/30/25 Ozzy Hernandez MD 100 [facility] [address] [place] [address] [email or web address] Referring Physician Urology 06/02/25 Edwin Mccormack MD [address] [place] [address] [email or web address] Medical Oncology 06/02/25 Justen Taylor MD [address] [place] [address] [email or web address] Radiation Oncology 07/01/25 documented as of this encounter Additional Source Comments The information contained in this document represents components of the legal health record. It is not the complete legal health record.[facility]
--- OUTSIDE RECORDS SUMMARY | 2025-08-07 09:46 | XMS_ITS | Encounter Summary ---
Author Organization [facility] Address [address] [place] [phone] Phone Care Team Providers Care Director Transition Name Role Phone Phani Ruggiero MD Primary Care Provider Self-Referred, Patient Unavailable Unavailab Ozzy Gurrola MD Unavailable Edwin Mccormack MD Unavailable Justen Taylor MD Unavailable Reason for Visit * Reason Onset Date Comments anu med question 08/05/2025 Care Coordination 08/05/2025 Encounter Details Date Type Department Care Team (Late st Contact Info) Description 08/05/2025 Telephone [facility] at [address] [address] Jacy Morris [address] [place] [phone] [email or web address] anu med question; Care Coordination Social History Tobacco Use Types Packs/Day Years [...] as of this encounter Progress Notes * Alexandra Harris RN - 08/06/2025 3:57 PM EDT PT spoke to MD Mccormack. See separate encounter. * Sophy Ornelas I - 08/06/2025 3:31 PM EDT Patient LVM * Alexandra Harris RN - 08/06/2025 1:27 PM EDT 2nd attempt to reach pt. No answer. LM requesting call back. * Alexandra Harris RN - 08/05/2025 1:41 PM EDT Attempted to return Adriano's call. No answer. LM requesting call back. 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 Yes Reason for Call: Medication Management Joseph would like to speak with Alexandra. He reports he is having surgery on 08-21 and wants to know if it is okay to take a apalutamide. documented in this encounter Plan of Treatment Upcoming Encounters Date Type Department Care Team (Latest Contact Info) Description 08/20/2025 8:30 AM EST Pre-Admission Testing Pre Procedure Evaluation [address] [place] [phone] Adriano Calvillo MD [address] [place] [phone] [email or web address] 08/20/2025 9:30 AM EST Blood Draw DF/BWCC at [facility], Phlebotomy Services [address] [place] [address] Edwin Mccormack MD [address] [place] [phone] 08/20/2025 10:30 AM EST Office Visit [facility] at [address] [address] Edwin Mccormack MD [address] [place] [address] [email or web address] 08/21/2025 Procedure Pass OR Admitting Dept - Virtual Department [address] [place] [phone] 08/21/2025 11:30 AM EST Hospital Encounter OR Admitting Dept - Virtual Department [address] [place] [address] Adriano Calvillo MD [address] [place] [phone] [email or web address] 08/21/2025 11:30 AM EST - 08/21/2025 12:41 PM EST Surgery OR Admitting Dept - Virtual Department [address] [place] [phone] Adriano Calvillo MD [address] [place] [phone] [email or web address] TRANSPERINEAL INSERTION FIDUCIAL MARKERS PROSTATE GLAND Scheduled Procedures Name Priority Associated Diagnoses Date/Ti nm 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 08/21/2025 11:30 AM EST documented as of this encounter Visit Diagnoses Not on filedocumented in this encounter Care Teams Director Transition Relationship Specialty Start Date End Date Phani Ruggiero MD [address] [place] [address] [address] [place] [address] PCP - General Internal Medicine 05/30/25 Self-Referred, Patient Referring Physician 05/30/25 Ozzy Hernandez MD [address] [facility] [address] [place] [address] [email or web address] Referring Physician Urology 06/02/25 Edwin Mccormack MD [address] [place] [phone] [email or web address] Medical Oncology 06/02/25 Justen Taylor MD [address] [place] [phone] [email or web address] Radiation Oncology 07/01/25 documented as of this encounter Additional Source Comments The information contained in this document represents components of the legal health record. It is not the complete legal health record.[facility]
--- OUTSIDE RECORDS SUMMARY | 2025-08-07 09:46 | XMS_ITS | Clinical Summary ---
Author Organization [facility] Address [address] [place] [place] [address] Phone Care Team Providers Care Client Sales And Service Officer Name Role Phone Phani Adams MD Primary Care Provider [phone] Allergies Active Allergy Reactions Criticality Noted Date Comments Penicillins 08/07/2018 Medications clindamycin (CLEOCIN) 300 mg capsule Take 300 mg by mouth 4 times daily. Active lisinopril-hydr oCHLOROthiazide (PRINZIDE,ZESTO RETIC) 20-12.5 mg per tablet Take 2 tablets by mouth 1 (one) time each day. Active spironolactone (ALDACTONE) 25 mg tablet Take 1 Tablet by mouth daily. Active amLODIPine (NORVASC) 10 mg tablet Take 1 tablet (10 mg total) by mouth 1 (one) time each day. Active omeprazole OTC (PriLOSEC OTC) 20 mg EC tablet Take 2 tablets (40 mg total) by mouth 1 (one) time each day. Do not crush, chew, or split. Active cyanocobalamin, vitamin B-12, (Vitamin B-12) 2,500 mcg tablet, sublingual Place 1 tablet under the tongue 1 (one) time each day. Active ibuprofen (ADVIL,MOTRIN) 800 mg tablet Take 1 tablet (800 mg total) by mouth every 6 (six) hours if needed for mild pain. Active KRILL OIL ORAL As directed Act art magnesium oxide 500 mg capsule Take 1 capsule by mouth 1 (one) time each day. Active glucosamine/cho ndr eid A sod (OSTEO BI-FLEX ORAL) Take 1 tablet by mouth 1 (one) time each day. Active tadalafiL (CIALIS) 20 mg tablet Take 1 tablet (20 mg total) by mouth 1 (one) time each day if needed for erectile dysfunction. Active triamcinolone (KENALOG) 0.1 % cream Apply topically 2 (two) times a day. Active valACYclovir (Valtrex) 1 gram tablet Take by mouth 2 (two) times a day. Active cholecalciferol (Vitamin D3) 5,000 Units tablet Take 1 tablet (5,000 Units total) by mouth 1 (one) time each day. Active aspirin 81 mg EC tablet Take 1 tablet (81 mg total) by mouth 1 (one) time each day. 5 03/19/20 26 Active Hospital, Clinic, or Other Facility Administered Medication Ordered Dose Route Frequency Start Date End Date Status TC-99M tetrofosmin P radio-isotope injection 10.2 millicurie 10.2 millicurie IV Once in imaging 03/12/2025 Acti ve Active Problems Problem Noted Date Diagnosed Date Abnormal ECG 01/27/2025 Assessment & Plan (01/27/2025 12:00 PM EDT): Patient's EKG today is showing sinus bradycardia with T wave abnormality in inferior leads. I reviewed previous EKGs in the past and although he had minor abnormalities in the past his T waves are much more inverted on EKG today. He has never had any cardiac testing from what I can appreciate in extensive chart review. Patient reports that he did have a stress test completed at some point in his 40s. He does have family history of coronary artery disease with his mother having an IL in her 80s. Out of an abundance of caution we will arrange for an echocardiogram and nuclear stress test. It is cardiac testing is normal he can continue to follow-up with his primary care provider and return only as needed. Melanoma in situ (CMS/HCC V24, CMS/HCC V28) 08/16 Overview (10/21/2024): Right medial zygoma 08/2021 - excised Dr Gibbs 09/2021 Hypertension 08/07/2018 Overview (10/21/2024): Last Assessment & Plan: We did discuss his blood pressure. He has well-controlled blood pressure at this time. Both arms are pretty close to equal. He is on a good combination of medications at this time and is tolerating these. I have made no changes to his medications. If he has another spike we will check a renal artery ultrasound. I have asked him to check an echocardiogram to look for any evidence of dysfunction or LVH. He will continue to monitor his blood pressure and will let us know how it runs. I suspect that he had a spike this time due to some dietary indiscretion with salt and weight gain that occurred over the winter. Assessment & Plan (01/27/2025 12:00 PM EDT): Blood pressure today is 102/62. He is doing well on his present medical regimen. He can continue with amlodipine, lisinopril/hydrochlorothiazide and spironolactone as prescribed. At this time I will make no changes to his antihypertensives. We will complete his cardiac eval and if all is normal then he can work with his primary care provider to slowly come off of some of his medications if that is his wish. Currently I advised against making any changes given he had profound hypertension in the past and required multiple medications to get him under control. Encounters Date Type Department Care Team Description 07/22/2025 Results Follow-Up [facility] Cardiology [facility] [address] [place] [phone] Dana Chong NP 07/18/2025 2:00 PM EDT Ancillary Procedure [facility] Cardiology [facility] [address] [place] [phone] Hypertension, unspecified type; Abnormal ECG 05/19/2025 Lab Requisition [facility] - Main Lab [address] [facility] [place] [address] Ozzy Hernandez MD Benign prostatic hyperplasia without lower urinary tract symptoms from Last 3 Months Surgical History Surgery Date Site/Laterality Comments TOTAL KNEE ARTHROPLASTY Right PROCEDURE: HISTORICAL TOTAL KNEE REPLACE Medical History Medical History Date Comments Hypertension 08/07/2018 DX:Hypertension Low back pain DX:Low back pain Anxiety DX:Anxiety Impotence of organic origin DX:I mpotence of organic origin IBS (irritable bowel syndrome) D X:IBS (irritable bowel syndrome) Insomnia DX:Insomnia Headache DX:Headache GERD (gastroesophageal reflux disease) DX:GERD (gastroesophageal reflux disease) Gallstone DX:Gallstone Left sided sciatica DX:Left side d sciatica Osteoarthritis of knee DX:Osteoa rthritis of knee Osteoarthritis of right hand DX: Osteoarthritis of right hand Acute swimmer's ear of right side DX:Acute swimmer's ear of right side Social History Tobacco Use Types Packs/Day Years Used Date Smoking Tobacco: Never Smokeless Tobacco: Never Alcohol Use Standard Drinks/Week Comments Not Currently 0 (1 standard drink = 0.6 oz pur e alcohol) Sex and Gender Information Value Date Recorded Sex Assigned at Not on file Legal Sex Male 2:47 AM EST Gender Identity Not on file Sexual Orientation Not on file Obstetrics History Last Filed Vital Signs Vital Sign Reading Time Taken Comments Blood Pressure 127/77 07/18/2025 2:39 PM EDT Pulse 56 01/27/2025 10:57 AM EDT Temperature - - Respiratory Rate - - Oxygen Saturation 94% 01/27/2025 10:57 AM EDT Inhaled Oxygen Concentration - - Weight 97.1 kg (214 lb) 07/18/2025 2:39 PM EDT Height 177.8 cm (5' 10 ) 07/18/2025 2:39 PM EDT Body Mass Index 30.71 07/18/2025 2:39 PM EDT Plan of Treatment Upcoming Encounters Date Type Department Care Team (Late st Contact Info) Description 08/12/2025 11:00 AM EDT Consult Gastroenterology - 299 [facility] [address] [phone] Jean Osuna MD [address] [address] Health Maintenance Due Date Last Done Comments DTaP,Tdap,and Td Vaccines (1 - Tdap) 1972 Pneumococcal Vaccine: 50+ Years (1 of 1 - PCV) 2003 Zoster Vaccines (2 of 3) 2015 10/06/2015 Cholesterol Screening (Lipid Panel) 09/18/2022 Falls Risk Assessment 09/18/2022 Hepatitis C Screening 09/18/2022 Medicare Annual Wellness Visit 09/18/2022 Social Influencers of Health Screening 09/18/2022 Depression Screening 10/16/2024 COVID-19 Vaccine (4 - 2024-2 6 season) 2025 08/30/2022, 12/04/2020, 11/06/2020 Influenza Vaccine (#1) 2025 08/30/2022 Colorectal Cancer Screening: FIT-DNA (Cologuard) 08/30/2025 08/30/2022, 08/30/2022, 08/13/2019 Hypertension/CHF/CAD Annual BMP Blood Test 07/10/2026 07/10/2025 RSV Immunization Adult Patients (1 - 1-dose 75+ series) 2028 HIB Vaccines Aged Out No longer eligi ble based on patient's age to complete this topic HPV Vaccines Aged Out No longer eligi ble based on patient's age to complete this topic Hepatitis A Vaccines Aged Out No long er eligible based on patient's age to complete this topic Hepatitis B Vaccines Aged Out No long er eligible based on patient's age to complete this topic IPV Vaccines Aged Out No longer eligi ble based on patient's age to complete this topic MMR Vaccines Aged Out No longer eligi ble based on patient's age to complete this topic Meningococcal ACWY Vaccine Aged Out N o longer eligible based on patient's age to complete this topic Meningococcal B Vaccine Aged Out No l onger eligible based on patient's age to complete this topic RSV Immunization Patients Under 20 months Aged Out No longer eligible b ased on patient's age to complete this topic Varicella Vaccines Aged Out No longer eligible based on patient's age to complete this topic Procedures Procedure Name Priority Date/Time Associated Diagnosis Comments TRANSTHORACIC ECHOCARDIOGRAM (TTE) COMPLETE Routine 07/18/2025 2:40 PM EDT Hypertension, unspecified type Abnormal ECG TISSUE EXAM Routine 05/16/2025 Benign prostatic hyperplasia without lower urinary tract symptoms from Last 3 Months Results * (ABNORMAL) TRANSTHORACIC ECHOCARDIOGRAM (TTE) COMPLETE (07/18/2025 2:40 PM EDT) Left Atrium Minor [place] 5.7 cm CV PACS Left Atrium Major [place] 6.2 cm CV PACS LA Area Sys (A2C) 24 cm2 CV PACS LA Area Sys (A4C) 22 cm2 CV PACS LA Volume (BP) 73 mL CV PACS RA Area 23.8 cm2 CV PACS RA 2D Volume 82 mL CV PACS AV Mean Gradient 10 mmHg CV PACS Ao VTI 49.0 cm CV PACS AV Peak Aman 2.4 m/s CV PACS AV Peak Gradient 22 mmHg CV PACS AV Area Continuity Equation 1.9 cm2 CV PACS AV Area Peak Velocity 1.9 cm2 CV PACS Aortic Sinus Valsalva 3.6 cm CV PACS Ascending Aorta 3.5 cm CV PACS IVSD 1.0 0.6 - 1.0 cm CV PACS LVIDD 5.2 4.2 - 5.8 cm CV PACS LVIDS 3.0 2.5 - 4.0 cm CV PACS LVOT Diameter 1.8 cm CV PACS LVOT Mean Aman 1.1 m/s CV PACS LVOT Mean Grad 5 mmHg CV PACS LVOT Peak VTI 36.2 cm CV PACS LVOT Peak Aman 1.7 m/s CV PACS LVOT Peak Gradient 12 mmHg CV PACS LVPWD 1.0 0.6 - 1.0 cm CV PACS MV E' Tissue Velocity Lateral 8 cm/s CV PACS MV E' Tissue Velocity Septal 9 cm/s CV PACS LVOT Area 2.5 cm2 CV PACS LVOT Stroke Volume 92 mL CV PACS E Wave Deceleration Time 236 119 - 242 ms CV PACS MV Peak A Aman 0.80 m/s CV PACS MV Peak E Aman 1.00 m/s CV PACS MV Mean Gradient 2 mmHg CV PACS MV VTI 46.4 cm CV PACS Mitral Valve Max Velocity 1.2 m/s CV PACS MV Peak Gradient 5 mmHg CV PACS MV Area Continuity Equation 2.0 cm2 CV PACS PV Acceleration Time 162 ms CV PACS PV Acceleration Time 151 ms CV PACS PV Acceleration Time 157 ms CV PACS RV Diastolic Basal Dimension 5.7(A) 2.5 - 4.1 cm CV PACS RV S' 17 cm/s CV PACS TAPSE 30 mm CV PACS TR Peak Velocity 2.90 m/s CV PACS TR Peak Gradient 34 mmHg CV PACS E/E' Ratio Septal 11 CV PACS E/E' Ratio Averaged 12 CV PACS Relative Wall Thickness ratio 0.38 0.24 - 0.42 CV PACS LVOT:AV VTI Index 0.74 CV PACS FS 42 % CV PACS LV Mass 2D 191 96 - 200 g CV PACS MV VTI:LVOT VTI ratio 1.3 CV PACS LVOT flow 280 mL/s CV PACS AV Velocity Ratio 0.73 CV PACS E/A Ratio 1.3 0.8 - 2.0 CV PACS E/E' Ratio Lateral 13 CV PACS BSA 2.19 m2 CV PACS LA Volume Index (BP) 33 mL/m2 CV PACS LVIDD Index 2.42 cm/m2 CV PACS LVIDS Index 1.40 cm/m2 CV PACS LV Mass Index 2D 90 50 - 102 g/m2 CV PACS LVOT Stroke Index 0 mL/m2 CV PACS RA 2D Volume Index 38(A) 18 - 32 mL/m2 CV PACS PRIYANKA Index (VTI) 0.87 cm2/m2 CV PACS PRIYANKA Index (Pk Aman) 0.88 cm2/m2 CV PACS Ascending Aorta Index 1.63 cm/m2 CV PACS RV Free Wall Peak S' 17 cm/s CV PACS RA Major Sheyenne 5.3 cm CV PACS RA Major [place] Index 2.5 2.1 - 2.7 cm/m2 CV PACS MV PHT 68 ms CV PACS AV Area 2D 1.9 cm2 CV PACS PRIYANKA Index (2D) 0.88 cm2/m2 CV PACS AV Area Index 0.8 CV PACS Anatomical Region Laterality Modality Ultrasound Narrative 07/21/2025 11:42 AM EDT Left ventricle cavity size is normal. Left ventricular systolic function is in the normal range with an ejection fraction of 55-60%. No regional LV wall motion abnormalities noted. Left ventricle wall thickness is normal. Right ventricle is enlarged. Right ventricular systolic function is normal. Right atrium is mildly enlarged Aortic sclerosis without stenosis. Compared to prior echo from 2022, aortic valve gradients are higher. Left Ventricle Left ventricle cavity size is normal. Wall thickness is normal. Systolic function is normal with an ejection fraction of 55-60%. There are no regional LV wall motion abnormalities. There is Grade I (mild) diastolic dysfunction. Right Ventricle Right ventricle cavity is dilated. Systolic function is normal. Left Atrium Left atrium cavity is borderline dilated. Right Atrium Right atrium cavity is mildly dilated. IVC/SVC Inferior vena cava was not well visualized. Mitral Valve The leaflets are mildly thickened. There is mild annular calcification. There is trace regurgitation. There is no evidence of mitral valve stenosis. Tricuspid Valve Tricuspid valve structure is normal. There is trace regurgitation. There is no evidence of tricuspid valve stenosis. Aortic Valve The aortic valve is trileaflet. The leaflets are mildly thickened. There is no regurgitation or stenosis. Pulmonic Valve Visualized portions of the pulmonic valve appear normal. There is trace pulmonic valve regurgitation. There is no evidence of pulmonic valve stenosis. Ascending Aorta The aorta appears normal in size. Pericardium Pericardium appears normal. There is no pericardial effusion. Study Details Overall the study quality was adequate. Wall Scoring Baseline Score Index: 1.00 The left ventricular wall motion is normal. Dana Chong NP CV ECHO PROCEDURES Final Res ult * Tissue Exam (05/16/2025) Final Diagnosis A. Prostate, Left Middle [place] (Core Biopsy): - BENIGN PROSTATE TISSUE. B. Prostate, Left Lateral [place] (Core Biopsy): -PROSTATIC ACINAR ADENOCARCINOMA, CONVENTIONAL (USUAL) TYPE -[place] score (4+5)=9, Grade group 5 Total Number of Cores: 1 Number of Positive Cores: 1 Percentage of Prostatic Tissue Continuously Involved by Tumor: 70% C. Prostate, Left Middle Middle (Core Biopsy): -PROSTATIC ACINAR ADENOCARCINOMA, CONVENTIONAL (USUAL) TYPE -[place] score (5+4)=9, Grade group 5 Total Number of Cores: 1 Number of Positive Cores: 1 Percentage of Prostatic Tissue Discontinuously Involved by Tumor: 100% D. Prostate, Left Lateral Middle (Core Biopsy): -PROSTATIC ACINAR ADENOCARCINOMA, CONVENTIONAL (USUAL) TYPE -[place] score (5+5)=10, Grade group 5 Total Number of Cores: 1 Number of Positive Cores: 1 Percentage of Prostatic Tissue Continuously Involved by Tumor: 100% E. Prostate, Left Middle Base (Core Biopsy): -PROSTATIC ACINAR ADENOCARCINOMA, CONVENTIONAL (USUAL) TYPE -[place] score (5+4)=9, Grade group 5 Total Number [...] by Tumor: 90% G. Prostate, Right Middle [place] (Core Biopsy): - BENIGN PROSTATE TISSUE. H. Prostate, Right Lateral [place] (Core Biopsy): -PROSTATIC ACINAR ADENOCARCINOMA, CONVENTIONAL (USUAL) TYPE -Radha score (5+3)=8, Grade group 4 Total Number of Cores: 1 Number of Positive Cores: 1 Percentage of Prostatic Tissue Continuously Involved by Tumor: 10% I. Prostate, Right Middle Middle (Core Biopsy): - BENIGN PROSTATE TISSUE. J. Prostate, Right Lateral Middle (Core Biopsy): - BENIGN PROSTATE TISSUE. K. Prostate, Right Middle Base (Core Biopsy): -PROSTATIC ACINAR ADENOCARCINOMA, CONVENTIONAL (USUAL) TYPE -[place] score (4+5)=9, Grade group 5 Total Number [...] by Tumor: 90% 05/22/2025 12:38 PM EDT [facility] at 1238 EDT Clinical Information Elevated PSA N40.0 PSA: 7.5 (03/01/25) [id number] 05/22/2025 12:38 PM EDT [facility] Gross Description A. Prostate, Left Middle [place] Biopsy: Received, properly labeled, are two H and E stained slides and two unstained slides. B. Prostate, Left Lateral [place] Biopsy: Received, properly labeled, are two H [...] two unstained slides. G. Prostate, Right Middle [place] Biopsy: Received, properly labeled, are two H and E stained slides and two unstained slides. H. Prostate, Right Lateral [place] Biopsy: Received, properly labeled, are two H [...] unstained slides. /al 05/22/2025 12:38 PM EDT [facility] Disclaimer Unless otherwise specified, all tissue is 10% NB formalin fixed and paraffin embedded. Technical pathology services provided by [facility]rology at [address] [place] [address] [address], [place] [address] (CLIA #[id number]/Rona Waldrop MD, Rvda Master Certified Rv Technician) 05/22/2025 12:38 PM EDT [facility] Tissue Prostate / Unknown 05/16/20252024 [...] Unknown 05/16/2025 05/19/2025 4: 13 PM EDT us Ozzy Hernandez MD LAB PATHOLOGY ORDERABLES Final Result [facility] LAB [address] [place] [address], from Last 3 Months Insurance MEDICARE [facility] Advance Directives Documents on File Type Date Recorded 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 Health Care Decision (hx) 12/02/2019 AD KAPLAN DIRECTIVE Health Care Decision (hx) 12/02/2019 AD KAPLAN DIRECTIVE Health Care Decision (hx) 12/02/2019 AD KAPLAN DIRECTIVE Health Care Decision (hx) 12/02/2019 AD KAPLAN DIRECTIVE Health Care Decision (hx) 12/02/2019 AD KAPLAN DIRECTIVE Health Care Decision (hx) 12/02/2019 AD KAPLAN DIRECTIVE Health Care Decision (hx) 11/10/2017 AD KAPLAN DIRECTIVE Health Care Decision (hx) 11/10/2017 AD KAPLAN DIRECTIVE Health Care Decision (hx) 11/10/2017 AD KAPLAN DIRECTIVE Health Care Decision (hx) 11/10/2017 AD KAPLAN DIRECTIVE Health Care Decision (hx) 11/10/2017 AD KAPLAN DIRECTIVE Health Care Decision (hx) 11/10/2017 AD KAPLAN DIRECTIVE Health Care Decision (hx) 07/04/2014 AD KAPLAN DIRECTIVE Health Care Decision (hx) 07/04/2014 AD KAPLAN DIRECTIVE Health Care Decision (hx) 07/04/2014 AD KAPLAN DIRECTIVE Health Care Decision (hx) 07/04/2014 AD KAPLAN DIRECTIVE Health Care Decision (hx) 07/04/2014 AD KAPLAN DIRECTIVE Health Care Decision (hx) 07/04/2014 AD KAPLAN DIRECTIVE Care Teams Client Sales And Service Officer Relationship Specialty Start Date End Date Phani Adams MD [address] [place] [address] PCP - General Telephone Order Clerk 06/05/17
--- OUTSIDE RECORDS SUMMARY | 2025-08-07 09:46 | XMS_ITS ---
Author Organization [facility] Address [address] [facility] [address] [place] [phone] Phone Care Team Providers Care Learning Support Assistant Name Role Phone Phani Ruggiero MD Primary Care Provider Self-Referred, Patient Unavailable Unavailab zOzy Gurrola MD Unavailable Edwin Mccormack MD Unavailable Justen Taylor MD Unavailable Active Problems Problem Noted Date Diagnosed Date Malignant neoplasm of prostate 07/10/2025 Current Treatment and Therapy Plans APALUTAMIDE* Plan Start Date:07/10/2025 Plan Provider:Edwin Mccormack MD Linked Problems Malignant neoplasm of prosta te Treatment Medications Current Day (Day 1 , Cycle 2 - Planned for 08/07/2025) Next Day (Day 1, Cycle 3 - Planned for 09/04/2025) apalutamide (ERLEADA) apalutamide (ERLEA DA) 60 mg tablet apalutamide (ERLEADA) 60 mg tablet LEUPROLIDE ACETATE 3 MONTH (LUPRON DEPOT 3 MONTH)* Plan Start Date:12/24/2025 Plan Provider:Edwin Mccormack MD Linked Problems Malignant neoplasm of prosta te Treatment Medications leuprolide (LUPRON) Past Treatment and Therapy Plans No past plan information found.
--- OUTSIDE RECORDS SUMMARY | 2025-08-07 09:46 | XMS_ITS | Encounter Summary ---
Author Organization [facility] Address [address] [address] [place] [phone] Phone Care Team Providers Care Rehabilitation Director Name Role Phone Phani Ruggiero MD Primary Care Provider Self-Referred, Patient Unavailable Unavailab Ozzy Gurrola MD Unavailable [phone] Edwin Mccormack MD Unavailable Justen Taylor MD Unavailable Encounter Details Date Type Department Care Team (Late st Contact Info) Description 08/06/2025 Telephone [facility] at [address] [address] Edwin Mccormack MD [address] [place] [phone] maria Social History Tobacco Use Types [...] as of this encounter Progress Notes * Edwin Mccormack MD - 08/06/2025 3:36 PM EDT He is going undergo placement of fiducial markers and told me that he was can be having anesthesia for this. Typically it is safe to continue AR pathway inhibitor apalutamide in anticipation of anesthesia, but apalutamide can decrease the efficacy of some medications like midazolam, so I recommended that he hold the apalutamide 3 days prior to his anticipated procedure. documented in this encounter Plan of Treatment Upcoming Encounters Date Type Department Care Team (Latest Contact Info) Description 08/20/2025 8:30 AM EST Pre-Admission Testing Pre Procedure Evaluation [address] [place] [address] Adriano Calvillo MD [address] [place] [phone] [email or web address] 08/20/2025 9:30 AM EST Blood Draw DF/BWCC at [facility], Phlebotomy Services [address] [address] Edwin Mccormack MD [address] [place] [phone] [email or web address] 08/20/2025 10:30 AM EST Office [facility] at [address] [address] Edwin Mccormack MD [address] [place] [phone] [email or web address] 08/21/2025 Procedure Pass OR Admitting Dept - Virtual Department [address] [place] [address] 08/21/2025 11:30 AM EST Hospital Encounter OR Admitting Dept - Virtual Department [address] [place] [address] Adriano Calvillo MD [address] [place] [address] [email or web address] 08/21/2025 11:30 AM EST - 08/21/2025 12:41 PM EST Surgery OR Admitting Dept - Virtual Department [address] [place] [address] Adriano Calvillo MD [address] [place] [address] [email or web address] TRANSPERINEAL INSERTION FIDUCIAL MARKERS PROSTATE GLAND Scheduled Procedures Name Priority Associated Diagnoses Date/Ti oh 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 08/21/2025 11:30 AM EST documented as of this encounter Visit Diagnoses Not on filedocumented in this encounter Care Teams Rehabilitation Director Relationship Specialty Start Date End Date Phani Ruggiero MD [address] [facility] [address] [place] [address] PCP - General Internal Medicine 05/30/25 Self-Referred, Patient Referring Physician 05/30/25 Ozzy Hernandez MD [address] [facility] [address] [place] [address] [email or web address] Referring Physician Urology 06/02/25 Edwin Mccormack MD [address] [place] [phone] [email or web address] Medical Oncology 06/02/25 Justen Taylor MD [address] [place] [address] [email or web address] Radiation Oncology 07/01/25 documented as of this encounter Additional Source Comments The information contained in this document represents components of the legal health record. It is not the complete legal health record.[facility]
--- NOTE | 2025-08-07 10:17 | MHC.AU.HA3 ---
Hearing Instrument Follow-Up- Binaural Date of Visit: 08/07/25 Follow-Up Summary: Wanted swim plugs checked. Reported right seems to be leaking more often now. Black spots on outside of plugs, question if mold. Tried cleaning it off unsuccessfully. Given new loose fit and questionable mold, recommended new plugs. Adriano agreeable. Impressions taken, bilaterally, without incident. Sent to [facility]. Adriano paid $130.00 today. Recommendations: Patient will be contacted when materials have arrived. Diagnosis Code(s): Primary Diagnosis: H69.93 Unspecified Eustachian Tube Dysfunction, Bilateral Signature: Provider: Estela Scott, [facility]
== END 2025-08-07 08:58 | disposition home or self-care (01) ==
LOC: HO.HAP 08:57
PROVIDERS: Visit Provider Nurse Practitioner Family
DX: Z46.1 Encounter for fitting and adjustment of hearing aid (principal); H69.93 Unspecified Eustachian tube disorder, bilateral
CPT/HCPCS: V5264

== ENCOUNTER 2025-08-25 10:34 | Outpatient (REF) | payer SELFPAY ==
--- OUTSIDE RECORDS SUMMARY | 2025-08-20 08:30 | XMS_ITS | Encounter Summary ---
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 Name Role Phone Phani Ruggiero MD Primary Care Provider Self-Referred, Patient Unavailable Unavailab Ozzy Gurrola MD Unavailable Edwin Mccormack MD Unavailable [phone] Justen Taylor MD Unavailable Encounter Details Date Type Department Care Team (Late st Contact Info) Description 08/20/2025 8:30 AM EST Pre-Admission Testing Pre Procedure Evaluation [address] [place] [address] Adriano Calvillo MD [address] [place] [address] [email or web address] Social History Tobacco Use Types Packs/Day Years [...] you interested in more education? Not on mla e 05/30/2025 Are you concerned about learning? [...] AM EDT documented as of this encounter Last Filed Vital Signs Vital Sign Reading Time Taken Comments Blood Pressure - - Pulse - - Temperature - - Respiratory Rate - - Oxygen Saturation - - Inhaled Oxygen Concentration - - Weight 95.7 kg (211 lb) 08/05/2025 10:54 AM EDT Height 172.7 cm (5' 8 ) 08/05/2025 10:54 AM EDT Body Mass Index 32.08 08/05/2025 10:54 AM EDT documented in this encounter Functional Status * Calculated C-SSRS Risk Score (Lifetime/Recent) Answer Date of Assessment Author No Risk Indicated 08/21/2025 10:19 AM Hodan Saleem nd RN * Mack Suicide Severity Rating Scale (Screener/Recent Self-Report) Question Answer Date of Assessment Author 2. Non-Specific Active Suicidal Thoughts (Past 1 Month) No 08/21/2025 10:19 AM EST Matthew Aguilera RN documented as of this encounter Progress Notes * Delvin Bryant RN - 08/20/2025 8:30 AM EST Pt instructed to contact surgeon's office for med instructions for apalutamide prior to surgery. You may take some of your medications the day of surgery, as directed by your surgeon/specialist with a small sip of water. Hold vitamins, supplements, and nsaids a week prior to surgery, unless otherwise indicated by your PCP, surgeon, or furniture sales associate. Do Not eat or drink anything after midnight. No chewing gum, hard candy, and lozenges. Do not use mouthwash with oral care. Please do not wear jewelry of any kind (including wedding rings), body piercings, nail portuguese, makeup, contact lenses, lotions, powders, or deodorant. If the surgeon instructed you to use a pre-op antiseptic wipe or wash, follow your surgeon's instructions Do not shave the area where the surgeon will be making incisions for 2 days before your surgery. Make sure you have a friend or family member come with you who will be able to stay with you and drive you home. You will not be allowed to drive, walk or take a bus, taxi, or Uber home after your procedure (by yourself, you must be accompanied) Please review your instructions from your surgeon and make sure you have all appropriate lab work drawn prior to surgery. If you think you have a cold, flu, any kind of infection or skin problem, please call your surgeon's office directly Pt demonstrated a knowledge of information with a successful teach back. This preprocedure call occurred on August 05, 2025 documented in this encounter Plan of Treatment Upcoming Encounters Date Type Department Care Team (Late st Contact Info) Description 09/10/2025 1:00 PM EST Office Visit [facility] Rad Onc [address] [place] [address] Adriano Calvillo MD [address] [place] [address] [email or web address] 09/29/2025 1:00 PM EST Treatment [facility] Rad Onc [address] [place] [address] Adriano Calvillo MD [address] [place] [address] [email or web address] 09/30/2025 1:00 PM EST Treatment [facility] At [facility] Rad Onc [address] [place] [address] Adriano Calvillo MD [address] [place] [address] [email or web address] 10/01/2025 1:00 PM EST Treatment [facility] At [facility] Rad Onc [address] [place] [address] Adriano Calvillo MD [address] [place] [address] [email or web address] 10/02/2025 1:00 PM EST Treatment [facility] Rad Onc [address] [place] [address] Adriano Calvillo MD [address] [place] [address] [email or web address] 10/03/2025 1:00 PM EST Treatment [facility] Rad Onc [address] [place] [address] Adriano Calvillo MD [address] [place] [address] [email or web address] 10/06/2025 1:00 PM EST Treatment [facility] Rad Onc [address] [place] [address] Adriano Calvillo MD [address] [place] [address] [email or web address] 10/07/2025 1:00 PM EST Treatment [facility] Rad Onc [address] [place] [address] Adriano Calvillo MD [address] [place] [address] [email or web address] 10/08/2025 1:00 PM EST Treatment [facility] Rad Onc [address] [place] [address] Adriano Calvillo MD [address] [place] [address] [email or web address] 10/10/2025 1:00 PM EST Treatment [facility] Rad Onc [address] [place] [address] Adriano Calvillo MD [address] [place] [address] [email or web address] 10/13/2025 1:00 PM EST Treatment [facility] Rad Onc [address] [place] [address] Adriano Calvillo MD [address] [place] [address] [email or web address] 10/14/2025 1:00 PM EST Treatment [facility] Rad Onc [address] [place] [address] Adriano Calvillo MD [address] [place] [address] [email or web address]@[email or web address] 10/15/2025 1:00 PM EST Treatment [facility] Rad Onc [address] [place] [address] Adriano Calvillo MD [address] [place] [address] [email or web address]@[email or web address] 10/17/2025 1:00 PM EST Treatment [facility] Rad Onc [address] [place] [address] Adriano Calvillo MD [address] [place] [address] [email or web address]@[email or web address] 10/20/2025 1:00 PM EST Treatment [facility] Rad Onc [address] [place] [address] Adriano Calvillo MD [address] [place] [address] [email or web address] 10/21/2025 1:00 PM EST Treatment [facility] Rad Onc [address] [place] [address] Adriano Calvillo MD [address] [place] [address] [email or web address]@[email or web address] 10/22/2025 1:00 PM EST Treatment [facility] Rad Onc [address] [place] [address] Adriano Calvillo MD [address] [place] [phone] [email or web address]@[email or web address] 10/23/2025 1:00 PM EST Treatment [facility] Rad Onc [address] [place] [address] Adriano Calvillo MD [address] [place] [phone] [email or web address]@[email or web address] 10/24/2025 1:00 PM EST Treatment [facility] Rad Onc [address] [place] [address] Adriano Calvillo MD [address] [place] [address] [email or web address] 10/27/2025 1:00 PM EST Treatment [facility] Rad [address] [address] Adriano Calvillo MD [address] [place] [address] [email or web address] 10/28/2025 1:00 PM EST Treatment [facility] Rad Onc [address] [place] [address] Adriano Calvillo MD [address] [place] [address] [email or web address]@[email or web address] 10/29/2025 1:00 PM EST Treatment [facility] Rad Onc [address] [place] [address] Adriano Calvillo MD [address] [place] [address] [email or web address] 10/30/2025 1:00 PM EST Treatment [facility] Rad Onc [address] [place] [address] Adriano Calvillo MD [address] [place] [address] [email or web address]@[email or web address] 10/31/2025 1:00 PM EST Treatment [facility] Rad Onc [address] [place] [address] Adriano Calvillo MD [address] [place] [address] [email or web address] 11/04/2025 1:00 PM EST Treatment [facility] Rad Onc [address] [place] [address] Adriano Calvillo MD [address] [place] [address] [email or web address]@[email or web address] 11/05/2025 1:00 PM EST Treatment [facility] Rad Onc [address] [place] [address] Adriano Calvillo MD [address] [place] [address] [email or web address] 11/06/2025 1:00 PM EST Treatment [facility] Rad Onc [address] [place] [address] Adriano Calvillo MD [address] [place] [address] [email or web address]@[email or web address] 11/07/2025 1:00 PM EST Treatment [facility] Rad Onc [address] [place] [address] Adriano Calvillo MD [address] [place] [address] [email or web address]@[email or web address] 11/10/2025 1:00 PM EST Treatment [facility] Rad Onc [address] [place] [address] Adriano Calvillo MD [address] [place] [address] [email or web address] 11/11/2025 1:00 PM EST Treatment [facility] Rad Onc [address] [place] [address] Adriano Calvillo MD [address] [place] [address] [email or web address] 11/12/2025 1:00 PM EST Treatment [facility] Rad Onc [address] [place] [address] Adriano Calvillo MD [address] [place] [address] [email or web address] 11/13/2025 1:00 PM EST Treatment [facility] Rad Onc [address] [place] [address] Adriano Calvillo MD [address] [place] [address] [email or web address] 11/14/2025 1:00 PM EST Treatment [facility] Rad Onc [address] [place] [address] Adriano Calvillo MD [address] [place] [address] [email or web address] 11/17/2025 1:00 PM EST Treatment [facility] Rad Onc [address] [place] [address] Adriano Calvillo MD [address] [place] [address] [email or web address]@[email or web address] 11/18/2025 1:00 PM EST Treatment [facility] Rad Onc [address] [place] [address] Adriano Calvillo MD [address] [place] [address] DAVION@[email or web address] 11/19/2025 10:10 AM EST Blood Draw DF/BWCC at [facility], Phlebotomy Services [address] [place] [address] Edwin Mccormack MD [address] [place] [phone] [email or web address] 11/19/2025 11:00 AM EST Office Visit [facility] at [address] [address] Edwin Mccormack MD [address] [place] [phone] [email or web address] 11/19/2025 1:00 PM EST Treatment [facility] Rad Onc [address] [place] [address] Adriano Calvillo MD [address] [place] [address] [email or web address]@[email or web address] 11/20/2025 1:00 PM EST Treatment [facility] Rad Onc [address] [place] [address] Adriano Calvillo MD [address] [place] [address] [email or web address]@[email or web address] 11/21/2025 1:00 PM EST Treatment [facility] Rad Onc [address] [place] [address] Adriano aClvillo MD [address] [place] [address] [email or web address] 11/24/2025 1:00 PM EST Treatment [facility] Rad Onc [address] [place] [address] Adriano Calvillo MD [address] [place] [address] [email or web address] 11/25/2025 1:00 PM EST Treatment [facility] Rad Onc [address] [place] [address] Adriano Calvillo MD [address] [place] [address] [email or web address] documented as of this encounter Goals Goal Patient Goal Type Associated Problems Recent Progress Patient-Stated? 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 Relationship Specialty Start Date End Date Phani Ruggiero MD [address] [place] [address] [address] [place] [address] PCP - General Internal Medicine 05/30/25 Self-Referred, Patient Referring Physician 05/30/25 Ozzy Hernandez MD [address] [facility] [address] [place] [address] [email or web address] Referring Physician Urology 06/02/25 Edwin Mccormack MD [address] [place] [phone] Medical Oncology 06/02/25 Justen Taylor MD [address] [place] [address] [email or web address] Radiation Oncology 07/01/25 documented as of this encounter Additional Source Comments The information contained in this document represents components of the legal health record. It is not the complete legal health record.[facility]
--- OUTSIDE RECORDS SUMMARY | 2025-08-20 10:30 | XMS_ITS | Encounter Summary ---
Author Organization [facility] Address [address] [facility] [address] [place] [phone] Phone Care Team Providers Care Ramp Supervisor Name Role Phone Phani Ruggiero MD Primary Care Provider Self-Referred, Patient Unavailable Unavailab Ozzy Gurrola MD Unavailable [phone] Edwin Mccormack MD Unavailable Justen Taylor MD Unavailable Encounter Details Date Type Department Care Team (Late st Contact Info) Description 08/20/2025 10:30 AM EST [facility] [address] [address] Edwin Mccormack MD [address] [place] [phone] Malignant neoplasm of prostate (Primary Dx) Social History Tobacco Use Types Packs/Day Years [...] Sign Reading Time Taken Comments Blood Pressure 148/73 08/20/2025 9:58 AM EST Pulse 58 08/20/2025 9:58 AM EST Temperature 36.5 C (97.7 F) 08/20/2025 9:58 AM EST Respiratory Rate 18 08/20/2025 9:58 AM EST Oxygen Saturation 99% 08/20/2025 9:58 AM EST Inhaled Oxygen Concentration - - Weight 96.6 kg (212 lb 15.4 oz) 08/20/2025 9:58 AM EST Height - - Body Mass Index 32.38 08/05/2025 10:54 AM EDT documented in this encounter Progress Notes * Edwin Mccormack MD - 08/20/2025 10:30 AM EST Images from the original note were not included. Hematology/Oncology Outpatient Visit Note Date of Service: 08/20/2025 Patient: Adriano Segura : 1955 Reason for Visit: [facility] Interval History: Started apalutamide about 1 month ago Nocturia improving, no longer taking tamsulosin Some occaasional hot flashes Overall feeling well Scheduled for fiducial marker placement this week, holding the apalutamide for 2 days prior to the procedure. Review of Systems: 10-point review of systems was obtained and was negative except as described in interval history above. Oncology History Overview Note He initially presented in early 2024 with progressing urinary symptoms of frequency urgency and nocturia, which prompted lab testing showing an elevated PSA level of 7.5 in February 2025. Prostate MRI 03/2025 revealed 5.2 cm left sided peripheral zone lesion extending from the apex to base with direct invasion of the seminal vesicles and multiple suspicious pelvic lymph nodes. Prostate biopsy revealed high-grade high-volume prostate cancer and 8/12 cores obtained, Radha score 10 (5+5) and Radha score 9 (4+5 and 5+4) present -on secondary review there is no Kingsford score 10 present, Radha score 9 (4+5) present. PSMA PET/CT revealed evidence of metastatic disease with hypermetabolic pelvic and retroperitoneal (para-aortic and paracaval) lymphadenopathy and activity throughout the majority the prostate. Malignant neoplasm of prostate 07/10/2025 Initial Diagnosis Malignant neoplasm of prostate 07/10/2025 - Systemic Therapy Palliative; APALUTAMIDE Edwin Mccormack MD Current Outpatient Medications Medication Instructions amLODIPine (NORVASC) 10 mg, Daily apalutamide (ERLEADA) 240 mg, Oral, Daily, Follow instructions given by provider. cholecalciferol (VITAMIN D3) 1,000 Units ciprofloxacin HCl (CIPRO) 500 mg, Oral, 2 times daily clindamycin (CLEOCIN) 300 mg, See admin instructions ibuprofen (ADVIL,MOTRIN) 800 mg, Every 6 hours PRN leuprolide acetate (LUPRON DEPOT, 6 MONTH, IM) Inject into the muscle. lisinopril-hydroCHLOROthiazide (PRINZIDE,ZESTORETIC) 20-12.5 mg per tablet 2 tablets, Daily metoprolol succinate (TOPROL-XL) 50 mg, Daily pantoprazole (PROTONIX) 20 mg, Oral, Daily spironolactone (ALDACTONE) 25 mg, Daily tadalafiL (CIALIS) 20 mg tamsulosin (FLOMAX) 0.4 mg, Oral, Daily, Take separately from blood pressure medicines by at least 4 hours. triamcinolone acetonide 0.1 % cream 2 times daily valACYclovir (VALTREX) 1,000 mg, See admin instructions Allergies: Cyclobenzaprine, Oxybutynin, and Penicillins Physical Exam: BP (!) 148/73 (BP Location: Left arm, Patient Position: Sitting, Cuff Size: Large) Pulse (!) 58 Temp 36.5 ??C (97.7 ??F) (Oral) Resp 18 Wt 96.6 kg (212 lb 15.4 oz) SpO2 99% BMI 32.38 kg/m?? General appearance: Generally well appearing, in no acute distress. Appears stated age Head, eyes, ears, nose, and throat: NC/AT Respiratory: Breathing comfortably on room air Neurologic: Alert and oriented. Psych: Normal mood and affect CV: RRR Ext: no LE edema Skin: no skin rash Laboratory: No results found for this or any previous visit (from the past 24 hours). Lab Results Component Value Date PSA 12.37 (H) 07/10/2025 PSA 8.99 (H) 06/12/2025 Radiology: COLONOSCOPY Anesthesia - [facility] Result Date: 08/14/2025 - Five 4 to 6 mm polyps in the cecum, removed with a cold snare. Resected and retrieved. - One 5 mm polyp in the transverse colon, removed with a cold snare. Resected and retrieved. - The examination was otherwise normal on direct and retroflexion views. Recommendation: - Await pathology results. - Repeat colonoscopy in 3 years for surveillance. Imaging below done at [facility] 06/06/2025: PSMA PET/CT 07/04/2025: MRI abdomen 07/02/2025: Brain MRI Impression: No retrocochlear abnormality to explain the patient?s symptoms 07/02/2025: Thoracic spine MRI: Impression: No definite T11 lesion to correspond to the reported finding on the outsidePET/CT.No evidence of metastasis elsewhere in the thoracic spine. Pathology: 05/16/2025 [facility] Pathology Review of Outside Pathology CONSULT SLIDES FROM [facility] [place], [place]: 1. PROSTATE, CORE NEEDLE BIOPSIES ([id number]; 05/16/25): A. LEFT MIDDLE APEX: Benign prostatic tissue. B. LEFT LATERAL APEX: PROSTATIC ADENOCARCINOMA, Radha score 4+5=9 (Grade Group 5), involving 80% of one (1) core. No perineural invasion. C. LEFT MIDDLE MIDDLE: PROSTATIC ADENOCARCINOMA, Radha score 4+5=9 (Grade Group 5), involving 90% of one (1) core. No perineural invasion. D. LEFT LATERAL MIDDLE: PROSTATIC ADENOCARCINOMA, Radha score 4+5=9 (Grade Group 5), involving 100% of one (1) core. No perineural invasion. E. LEFT MIDDLE BASE: PROSTATIC ADENOCARCINOMA, Kingsford score 4+5=9 (Grade Group 5), involving 15% of one (1) core. No perineural invasion. F. LEFT LATERAL BASE: PROSTATIC ADENOCARCINOMA, Radha score 4+5=9 (Grade Group 5), involving 90% of one (1) core. No perineural invasion. G. RIGHT MIDDLE APEX: Benign prostatic tissue. H. RIGHT LATERAL APEX: PROSTATIC ADENOCARCINOMA, Radha score 4+3=7 (Grade Group 3), involving 20% of one (1) core. Kingsford pattern 4 comprises 90% of the tumor. No perineural invasion. I. RIGHT MIDDLE MIDDLE: Benign prostatic tissue. J. RIGHT LATERAL MIDDLE: Benign prostatic tissue. K. RIGHT MIDDLE BASE: PROSTATIC ADENOCARCINOMA, Kingsford score 4+5=9 (Grade Group 5), involving 100% of one (1) core. No perineural invasion. L. RIGHT LATERAL BASE: PROSTATIC ADENOCARCINOMA, Radha score 4+5=9 (Grade Group 5), involving 90% of one (1) core. No perineural invasion. Assessment: Adriano Segura is a 69 y.o. 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 He began systemictherapy with leuprolide 06/2025 followed by apalutamide 07/2025. 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 Also discussed the potential role forradiation in efforts to induce durable remission. We reviewed the results of his PSMA pet imaging and his MRI of the abdomen and thoracic spine as above. Findings consistent with diagnosis above withno evidence of liver or bone metastasis. He start Lupron 06/2025 followed by the addition of apalutamide shortly after. Overall he is tolerating therapy well with no significant side effects. Will continue onward. He has met with radiation oncology and was offered a fractionated EBRT course of the retroperitoneum, pelvis, and prostate over 9 weeks. No brachytherapy boost would be recommended in this case because of his lower urinary tract symptoms. This is on the basis of the survival benefit seen in the STAMPEDE study for radiation of the prostate primary for patients with low-volume metastatic disease. Plan Summary: Continue Leuprolide, next due in ~5 months Continue apalutamide 240 mg p.o. daily OK to HOLD for 2 days prior to procedures given potential drug interaction with anesthesia Germline testing drawn today Seek somatic testing in the future Follow-up with radiation oncology for radiation planning, will get at [facility] close to home Follow up: 3 months Oncologic History above for reference, Review of Systems, Physical Exam, and Assessment and Plan reviewed and/or performed on 08/20/2025 and there are no changes except as documented. Total time spent on 08/20/2025 for this visit in isdu-fj-rrlo and non duwy-sb-jjdf time reviewing, documenting, and obtaining, clinical information, coordinating with the care team and/or other specialists, and counseling the patient: 30 minutes. Edwin Mccormack M.D. Hematology/On[facility] documented in this encounter Plan of Treatment Upcoming Encounters Date Type Department Care Team (Late st Contact Info) Description 09/10/2025 1:00 PM EST Office Visit [facility] Rad Onc [address] [place] [address] Adriano Calvillo MD [address] [place] [id number] [email or web address] 09/29/2025 1:00 PM EST Treatment [facility] Rad Onc [address] [place] [address] Adriano Calvillo MD [address] [place] [address] [email or web address] 09/30/2025 1:00 PM EST Treatment [facility] Rad Onc [address] [place] [address] Adriano Calvillo MD [address] [place] [phone] [email or web address] 10/01/2025 1:00 PM EST Treatment [facility] Rad Onc [address] [place] [address] Adriano Calvillo MD [address] [place] [phone] [email or web address] 10/02/2025 1:00 PM EST Treatment [facility] Rad Onc [address] [place] [address] Adriano Calvillo MD [address] [place] [id number] [email or web address] 10/03/2025 1:00 PM EST Treatment [facility] Rad Onc [address] [place] [address] Adriano Calvillo MD [address] [place] [id number] [email or web address] 10/06/2025 1:00 PM EST Treatment [facility] Rad Onc [address] [place] [address] Adriano Calvillo MD [address] [place] [address] [email or web address] 10/07/2025 1:00 PM EST Treatment [facility] Rad Onc [address] [place] [address] Adriano Calvillo MD [address] [place] [phone] [email or web address] 10/08/2025 1:00 PM EST Treatment [facility] Rad Onc [address] [place] [address] 125[address] Adriano Calvillo MD [address] [place] [address] 704[address] [email or web address] 10/10/2025 1:00 PM EST Treatment [facility] Rad Onc [address] [place] [address] 17[address] Adriano Calvillo MD [address] [place] [address] [id number] [email or web address] 10/13/2025 1:00 PM EST Treatment [facility] Rad Onc [address] [place] [address] Adriano Calvillo MD [address] [place] [id number] DAVION@[email or web address] 10/14/2025 1:00 PM EST Treatment [facility] Rad Onc [address] [place] [address] Adriano Calvillo MD [address] [place] [address] 9[address]65 DAVION@[email or web address] 10/15/2025 1:00 PM EST Treatment [facility] Rad Onc [address] [place] [address] 137[address] Adriano Calvillo MD [address] [place] [address] [id number] DAVION@[email or web address] 10/17/2025 1:00 PM EST Treatment [facility] Rad Onc [address] [place] [address] 259[address] Adriano Calvillo MD [address] [place] [address] 63614 DAVION@[email or web address] 10/20/2025 1:00 PM EST Treatment [facility] Rad Onc [address] [place] [address] Adriano Calvillo MD [address] [place] [address] [phone] [email or web address] 10/21/2025 1:00 PM EST Treatment [facility] Rad Onc [address] [place] [address] Adriano Calvillo MD [address] [place] [address] 46423 DAVION@[email or web address] 10/22/2025 1:00 PM EST Treatment [facility] Rad Onc [address] [place] [address] Adriano Calvillo MD [address] [place] [address] [phone] DAVION@[email or web address] 10/23/2025 1:00 PM EST Treatment [facility] Rad Onc [address] [place] [address] 92409 Adriano Calvillo MD [address] [place] [address] [phone] DAVION@[email or web address] 10/24/2025 1:00 PM EST Treatment [facility] Rad Onc [address] [place] [address] Adriano Calvillo MD [address] [place] [address] 32731 [email or web address] 10/27/2025 1:00 PM EST Treatment [facility] Rad Onc [address] [place] [address] 24986 Adriano Calvillo MD [address] [place] [address] [phone] [email or web address] 10/28/2025 1:00 PM EST Treatment [facility] Rad Onc [address] [place] [address] 38[address] Adriano Calvillo MD [address] [place] [address] [phone] [email or web address] 10/29/2025 1:00 PM EST Treatment [facility] Rad Onc [address] [place] [address] 11209 Adriano Calvillo MD [address] [place] [address] 67038 DAVION@[email or web address] 10/30/2025 1:00 PM EST Treatment [facility] Rad Onc [address] [place] [address] 74973 Adriano Calvillo MD [address] [place] [address] [phone] [email or web address] 10/31/2025 1:00 PM EST Treatment [facility] Rad Onc [address] [place] [address] Adriano Calvillo MD [address] [place] [address] 24838 [email or web address] 11/04/2025 1:00 PM EST Treatment [facility] Rad Onc [address] [place] [address] 53076 Adriano Calvillo MD [address] [place] [address] [phone] [email or web address] 11/05/2025 1:00 PM EST Treatment [facility] Rad Onc [address] [place] [address] 66014 Adriano Clavillo MD [address] [place] [address] [phone] [email or web address] 11/06/2025 1:00 PM EST Treatment [facility] Rad Onc [address] [place] [address] 90483 Adriano Calvillo MD [address] [place] [address] [phone] DAVION@[email or web address] 11/07/2025 1:00 PM EST Treatment [facility] Rad Onc [address] [place] [address] 19975 Adriano Calvillo MD [address] [place] [address] 39584 DAVION@[email or web address] 11/10/2025 1:00 PM EST Treatment [facility] Rad Onc [address] [place] [address] 30076 Adriano Calvillo MD [address] [place] [address] [phone] DAVION@[email or web address] 11/11/2025 1:00 PM EST Treatment [facility] Rad [address] [address] Adriano Calvillo MD [address] [place] [address] [id number] [email or web address] 11/12/2025 1:00 PM EST Treatment [facility] Rad Onc [address] [place] [address] 23939 Adriano Calvillo MD [address] [place] [address] [phone] [email or web address] 11/13/2025 1:00 PM EST Treatment [facility] Rad Onc [address] [place] [address] 14783 Adriano Calvillo MD [address] [place] [address] 93816 DAVION@[email or web address] 11/14/2025 1:00 PM EST Treatment [facility] Rad Onc [address] [place] [address] 658[address] Adriano Calvillo MD [address] [place] [address] 33353 DAVION@[email or web address] 11/17/2025 1:00 PM EST Treatment [facility] Rad Onc [address] [place] [address] 84292 Adriano Calvillo MD [address] [place] [address] 95862 DAVION@[email or web address] 11/18/2025 1:00 PM EST Treatment [facility] Rad Onc [address] [place] [address] Adriano Calvillo MD [address] [place] [address] 11163 DAVION@[email or web address] 11/19/2025 10:10 AM EST Blood Draw [facility] at [facility], Phlebotomy Services [address] [place] [address] Edwin Mccormack MD [address] [place] [address] [phone] [email or web address] 11/19/2025 11:00 AM EST Office [facility] at [address] [address] Edwin Mccormack MD [address] [place] [phone] [email or web address] 11/19/2025 1:00 PM EST Treatment [facility] Rad Onc [address] [place] [address] Adriano Calvillo MD [address] [place] [address] 26481 DAVION@[email or web address] 11/20/2025 1:00 PM EST Treatment [facility] Rad Onc [address] [place] [address] 98521 Adriano Calvillo MD [address] [place] [address] [id number] DAVION@[email or web address] 11/21/2025 1:00 PM EST Treatment [facility] Rad Onc [address] [place] [address] Adriano Calvillo MD [address] [place] [address] 46003 [email or web address] 11/24/2025 1:00 PM EST Treatment [facility] Rad Onc [address] [place] [address] 95575 Adriano Calvillo MD [address] [place] [address] [phone] [email or web address] 11/25/2025 1:00 PM EST Treatment [facility] Rad Onc [address] [place] [address] 22784 Adriano Calvillo MD [address] [place] [address] [phone] [email or web address] documented as of this encounter Goals Goal Patient Goal Type Associated Problems Recent Progress Patient-Stated? Author Autogenerat ed Goal Care Plan Autogenerated Problem No [employer], Admin documented as of this encounter Visit Diagnoses Diagnosis Malignant neoplasm of prostate- Primary documented in this encounter Additional Health Concerns Active Problems Noted Date Diagnosed Date Autogenerated Problem 08/21/2025 documented as of this encounter Care Teams Ramp Supervisor Relationship Specialty Start Date End Date Phani Ruggiero MD [address] [place] [phone] PCP - General Internal Medicine 05/30/25 Self-Referred, Patient Referring Physician 05/30/25 Ozzy Hernandez MD [address] [place] [phone] [email or web address] Referring Physician Urology 06/02/25 Edwin Mccormack MD [address] [place] [phone] [email or web address] Medical Oncology 06/02/25 Justen Taylor MD [address] [place] [phone] [email or web address] Radiation Oncology 07/01/25 documented as of this encounter Additional Source Comments The information contained in this document represents components of the legal health record. It is not the complete legal health record.[facility]
--- OUTSIDE RECORDS SUMMARY | 2025-08-21 09:55 | XMS_ITS | Encounter Summary ---
Author Organization [facility] Address [address] [facility] [address] [place] [phone] Phone Care Team Providers Care Pastry Baker Name Role Phone Phani Ruggiero MD Primary Care Provider Self-Referred, Patient Unavailable Unavailab Ozzy Gurrola MD Unavailable Edwin Mccormack MD Unavailable Justen Taylor MD Unavailable Reason for Visit * Auth/Cert (Routine) Specialty Diagnoses / Procedures Referred By Ju mcgowan Referred To Contact Diagnoses PROSTATE CANCER Procedures NE PLACE RADIOTHER DEVICE/MARKER, PROSTATE TRANSPERINEAL INSERTION FIDUCIAL MARKERS PROSTATE GLAND Referral ID Status Reason Start Date Expiration Date Visits Re quested Visits Authorized [id number] 1 1 Encounter Details Date Type Department Care Team (Latest Contact Info) Description 08/21/2025 9:55 AM EST - 08/21/2025 1:30 PM [facility] Hospital Encounter OR Admitting Dept - Virtual Department [address] [place] [id number] Adriano Calvillo MD [address] [place] [id number] [email or web address] Discharge Disposition: Home or Self Care Social History Tobacco Use Types Packs/Day Years [...] Reading Time Taken Comments Blood Pressure 148/73 08/21/2025 1:10 PM EST Pulse 43 08/21/2025 1:10 PM EST Temperature 36.3 C (97.3 F) 08/21/2025 1:10 PM EST Respiratory Rate 12 08/21/2025 1:10 PM EST Oxygen Saturation 96% 08/21/2025 1:10 PM EST Inhaled Oxygen Concentration - - Weight 95.7 kg (211 lb) 08/21/2025 10:15 AM EST Height 172.7 cm (5' 8 ) 08/21/2025 10:15 AM EST Body Mass Index 32.08 08/21/2025 10:15 AM EST documented in this encounter Functional Status * Calculated C-SSRS Risk Score (Lifetime/Recent) Answer Date of Assessment Author No Risk Indicated 08/21/2025 10:19 AM EST Hodan Rebollar nd, RN * [place] Suicide Severity Rating Scale (Screener/Recent Self-Report) Question Answer Date of Assessment Author 2. Non-Specific Active Suicidal Thoughts (Past 1 Month) No 08/21/2025 10:19 AM EST Matthew Aguilera RN documented as of this encounter Discharge Instructions * Discharge Instructions* Adriano Calvillo MD - 08/21/2025 12:35 PM EST AFTER ANESTHESIA It is best to have someone stay home with you for your own safety. Do not drink alcoholic beveragesfor 24 hours after surgery, or while taking opioid/narcotic pain medication. You may be dizzy and unsteady on your feet. Be careful on stairs. Do not smoke. Do not do anything that requires a clear head or steady hands, such as driving, for 24 hours. After anesthesia you may have some muscle soreness for 24-48 hours. If it lasts longer that this, call your doctor. If a breathing tube was used during surgery, you may have a slight sore throat. Youcan gargle with cold water or use sore throat lozenges. Nausea and Vomiting After Surgery After you've had surgery, you may feel sick to your stomach (nauseated) or you may vomit. When you are nauseated, you may feel weak, sweaty and/or notice a lot of saliva in your mouth. Nausea often leads to vomiting. Most of the time you do not need to worry about nausea and vomiting. Anesthesia, pain and narcotic/opioid pain medicine can make you feel sick to your stomach. Whatever the cause, there are some things you can do at home to prevent nausea and feel better. If you are feeling sick to your stomach and/or vomiting, you can care for yourself at home by: To prevent dehydration, drink fluids. Choose water and other clear liquids until you feel less nauseated. Do not drink alcoholic beverages. If you have kidney, heart, or liver disease and have to limit fluids, talk with your doctor before you increase the amount of fluids you drink. When you are able to eat, try clear soups, mild foods, and liquids until all symptoms are improve. Good choices include dry toast, crackers, cooked cereal, and gelatin dessert, such as Jell-O. Do not smoke. Smoking and being around smoke can make nausea worse. Rest. Be safe with medications. Read and follow all instructions on the label. Ask your doctor if you cantake an over-the counter medicine for pain (less likely to cause nausea and vomiting.). Take your pain medicine with food. Call your doctor or seek immediate medical care if symptoms are severe and/or persistent. Edited 03/2023 RT Instructions for Prostate Fiducial Markers Post-Implant It's normal to have some soreness after your procedure, but most people don't have pain. If you feel sore, you can take ibuprofen. If the ibuprofen doesn't help, call your doctor's office. For 3 days after your procedure, try to drink a generous amount of liquids. Temporary effects on your bowel movements, urine, and semen You may notice weaker flow to urinary stream. You may notice more difficulty with bowel movements. Take stool softener like Senekot if needed Activity Don't engage in any sexual activity for 3 days after your procedure. For the next 3 days after your procedure, don't work out in a gym, ride a bicycle, or lift any objects heavier than 25 pounds. Call your healthcare provider right away if you: Can't urinate See bright red blood or large clots in your urine Have a fever of 101 ??F (38.3 ??C) or higher Have shaking chills Feel dizzy Have any other problems, questions, or concerns Dr Calvillo at [facility] - [phone] documented in this encounter Medications at Time of Discharge amLODIPine (NORVASC) 10 MG tablet Take 10 mg by mouth daily. apalutamide (ERLEADA) 240 mg tabletIndications :Malignant neoplasm of prostate Take 1 tablet (240 mg total) by mouth daily. Follow instructions given by provider. 30 tablet 07/10/2025 aspirin 81 MG EC tablet Take 81 mg by mouth daily. cholecalciferol (VITAMIN D3) 5,000 unit tablet Take 1,000 Units by mouth. leuprolide acetate (LUPRON DEPOT, 6 MONTH, IM) Inject into the muscle. lisinopril-hydroC HLOROthiazide (PRINZIDE,ZESTORE TIC) 20-12.5 mg per tablet Take 2 tablets by mouth daily. pantoprazole (PROTONIX) 20 MG tabletIndications :Gastroesophageal reflux disease without esophagitis Take 1 tablet (20 mg total) by mouth daily. 30 tablet 07/14/2025 spironolactone (ALDACTONE) 25 MG tablet Take 25 mg by mouth daily. documented as of this encounter H&P Notes * Adriano Calvillo MD - 08/21/2025 11:00 AM EST History of Present Illness : This is a 69 y.o.male with a new diagnosis of very high risk prostate cancer, and will be undergoing radiotherapy. PSA level was elevated at 7.5 earlier this year in 2024. MRI of the prostate was done in March 2025,and showed a prominent, extensive left-sided lesion extending from apex to base, involving both posteromedial and left posterolateral peripheral zones in the apex, with extension to the anterior peripheral zone on the left, and to the left transition zone at the mid gland and the base. There was direct extension to involve the seminal vesicle insertions at the midline base. PI-RADS 5 lesion. There was capsular invasion. There were multiple mildly enlarged pelvic lymph nodes, along the right pelvic sidewall, and the left pelvic sidewall, and anterior to the right prostate base. The bladder wall was trabeculated. There were no osseous lesions. The volume of the prostate gland was 77 cm??. Biopsies of the prostate gland were done on 05/16/2025 and showed Radha score 4+5 = 9 adenocarcinoma in 7 separate core biopsies; Orlando score 4+3 = 7 adenocarcinoma was present in [address] scan was done on 06/06/2025 at [facility] and showed hypermetabolic pelvicand retroperitoneal lymphadenopathy along with hypermetabolic activity throughout the the prostate gland. There was a 1.8 cm right pelvic sidewall node, a cluster of deep iliac chain lymph nodes, and8 mm left perirectal lymph node, and multiple small retroperitoneal lymph nodes at the periaortic and pericaval location. Of note a 1.9 cm gallstone was present and there was a 2.7 cm right parapelvic renal cyst. He was given his first injection of Lupron on June 30. Subsequent androgen deprivation therapywill be managed by Dr. Edwin Mccormack. Apalutamide has been ordered and the patient will start taking this soon. Urinary function is currently characterized by IPSS equals 28. He does have a prescription for Flomax but has not started taking it. Baseline nocturia is 4 times per evening , although this has been reduced since the first Lupron injection. Sexual function is characterized by ÁNGEL score of 14. Patient uses Cialis on occasion. The patient chooses to receive his radiation therapy here at [facility]. The patient's oncological history thus far is detailed here. Oncology History Overview Note He initially presented [...] cores obtained, Radha score 10 (5+5) and Orlando score 9 (4+5 and 5+4) present -on secondary review there is no Radha score 10 present, Radha score 9 (4+5) present. PSMA PET/CT revealed evidence of metastatic disease with hypermetabolic pelvic and retroperitoneal lymphadenopathy and activity throughout the majority the prostate. Malignant neoplasm of prostate 07/10/2025 Initial Diagnosis Malignant neoplasm of prostate 07/10/2025 - Systemic Therapy Palliative; APALUTAMIDE Edwin Mccormack MD No prior history of radiation therapy. No history of lupus, scleroderma, rheumatoid arthritis, inflammatory bowel disease, or pacemaker placement. Review of Symptoms : ROS A 14-point review of systems, which I personally reviewed with the patient, is otherwise negative. Past Medical History: Past Medical History: Diagnosis Date Carpal tunnel syndrome GERD (gastroesophageal reflux disease) Hypertensive disorder 1.15 Piriformis syndrome Past Surgical History: Past Surgical History: Procedure Laterality Date BACK SURGERY 1.19 disc surgery in lumbar spine x 2 INGUINAL HERNIA REPAIR Left 1.05 KNEE CARTILAGE SURGERY Right 06/2017 SHOULDER SURGERY Bilateral TOTAL KNEE ARTHROPLASTY Right 2019 Medications : Current Outpatient Medications Ordered in [facility] Medication Sig amLODIPine (NORVASC) 10 MG tablet Take 10 mg by mouth daily. cholecalciferol (VITAMIN D3) 5,000 unit tablet Take 1,000 Units by mouth. lisinopril-hydroCHLOROthiazide (PRINZIDE,ZESTORETIC) 20-12.5 mg per tablet Take 2 tablets by mouth daily. pantoprazole (PROTONIX) 20 MG tablet Take 1 tablet (20 mg total) by mouth daily. spironolactone (ALDACTONE) 25 MG tablet Take 25 mg by mouth daily. tadalafiL (CIALIS) 20 MG tablet Take 20 mg by mouth. apalutamide (ERLEADA) 240 mg tablet Take 1 tablet (240 mg total) by mouth daily. Follow instructions given by provider. (Patient not taking: Reported on 07/23/2025) clindamycin (CLEOCIN) 300 MG capsule Take 300 mg by mouth as directed. Take prior to dental procedures. (Patient not taking: Reported on 07/23/2025) ibuprofen (ADVIL,MOTRIN) 800 MG tablet Take 800 mg by mouth every 6 (six) hours as needed. (Patientnot taking: Reported on 07/23/2025) metoprolol succinate (TOPROL-XL) 50 MG 24 hr tablet Take 50 mg by mouth daily. (Patient not taking:No sig reported) tamsulosin (FLOMAX) 0.4 mg Cap Take 1 capsule (0.4 mg total) by mouth daily. Take separately from blood pressure medicines by at least 4 hours. (Patient not taking: Reported on 07/08/2025) triamcinolone acetonide 0.1 % cream Apply topically 2 (two) times a day. (Patient not taking: Reported on 07/23/2025) valACYclovir (VALTREX) 1000 MG tablet Take 1,000 mg by mouth as directed. As needed for cold sores.(Patient not taking: Reported on 07/23/2025) Current Medications Medication Sig amLODIPine (NORVASC) 10 MG tablet 10 mg, Daily cholecalciferol (VITAMIN D3) 5,000 unit tablet 1,000 Units lisinopril-hydroCHLOROthiazide (PRINZIDE,ZESTORETIC) 20-12.5 mg per tablet 2 tablets, Daily pantoprazole (PROTONIX) 20 MG tablet 20 mg, Oral, Daily spironolactone (ALDACTONE) 25 MG tablet 25 mg, Daily tadalafiL (CIALIS) 20 MG tablet 20 mg apalutamide (ERLEADA) 240 mg tablet 240 mg, Oral, Daily, Follow instructions given by provider. Patient not taking: Reported on 07/23/2025 clindamycin (CLEOCIN) 300 MG capsule 300 mg, See admin instructions Patient not taking: Reported on 07/23/2025 ibuprofen (ADVIL,MOTRIN) 800 MG tablet 800 mg, Every 6 hours PRN Patient not taking: Reported on 07/23/2025 metoprolol succinate (TOPROL-XL) 50 MG 24 hr tablet 50 mg, Daily Patient not taking: No sig reported tamsulosin (FLOMAX) 0.4 mg Cap 0.4 mg, Oral, Daily, Take separately from blood pressure medicines by at least 4 hours. Patient not taking: Reported on 07/08/2025 triamcinolone acetonide 0.1 % cream 2 times daily Patient not taking: Reported on 07/23/2025 valACYclovir (VALTREX) 1000 MG tablet 1,000 mg, See admin instructions Patient not taking: Reported on 07/23/2025 Allergies : Allergen Reactions Cyclobenzaprine Oxybutynin Penicillins Rash, Hives and Unknown Social History : Social History Socioeconomic History Marital status: /Civil Union Spouse name: Not on file Number of children: Not on file Years of education: Not on file Highest education level: Not on file Occupational History Not on file Tobacco Use Smoking status: Never Smokeless tobacco: Never Vaping Use Vaping status: never used Substance and Sexual Activity Alcohol use: Never Drug use: Never Sexual activity: Not on file Other Topics Concern Not on file Social History Narrative Lives with . 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 HEENT: No scleral icterus, jaundice or pallor. Neck is supple without palpable masses or thyromegaly. Lymphatics: No cervical nor supraclavicular lymphadenopathy. Lungs: Clear to auscultation. Heart: Regular rate and rhythm. Abdomen: Soft, nontender, nondistended. Extremities: Free of edema. Neurological: Cranial nerves grossly intact. Strength is 5 out of 5 in the extremities without gross sensory deficits. Cognition intact. Affect normal. Performance Status : ECOG performance status: 0- Fully active, able to carry on all pre-disease performance without restriction Imaging Data: Images were personally reviewed, as described in the HPI, and I agree with the described findings. Laboratory Data: Lab Results Component Value Date WBC 8.1 07/10/2025 HGB 14.2 07/10/2025 HCT 39.7 07/10/2025 PLT 227 07/10/2025 NA 140 07/10/2025 K 4.4 07/10/2025 CL 103 07/10/2025 BUN 16 07/10/2025 CO2 28 07/10/2025 PSA 12.37 (H) 07/10/2025 Impression and Plan: This is a 69 y.o. male with very high risk prostate CA. definitive management with radiotherapy along with androgen deprivation therapy is recommended. The first injection of an LHRH agonist was given on June 30. Apalutamide has been prescribed as well. With respect to radiotherapy, I will implanting gold seed fiducial markers into the prostate gland today to allow for optimal image guided radiotherapy. Peter Calvillo documented in this encounter Procedure Notes * Adriano Calvillo MD - 08/21/2025 11:30 AM EST Full Operative Note Patient Name: Adriano Segura Date of Surgery: 08/21/2025 Dx: Prostate CA Procedure(s): TRANSPERINEAL INSERTION FIDUCIAL MARKERS PROSTATE GLAND Surgeons and Role: * Adriano Calvillo MD - Primary Obgyn Nurse: Ricki Johnson MD Anesthesia Type: General ASA Code: III Description of Procedure: The patient was placed in the dorsal lithotomy position with his legs in Tye stirrups. The scrotum was taped up and away from the perineal region. The perineum was prepped. The biplan B&K transrectal ultrasound probe was fitted with a transducer cover, condom-type, with a generous amount of ultrasound gel having been placed into the condom. This ultrasound probe was positioned and secured into the brachy-stepper device. This device was attached and secured to thebrachiy-stabilizer unit. This stabilizer unit was secured onto the end of the OP table. The ultrasound probe was then inserted into the rectum, and the attached apparatus was manipulated to achieve ideal positioning of the probe for optimal imaging of the prostate gland itself. Once optimal imaging was obtained, the stabilizer apparatus was secured into position. Care was taken to assure that the urethra was positioned at midline with respect to the superimposed virtual template position on the ultrasound unit monitor. Similarly, care was taken to assure thatthe posterior edge of the visualized prostate gland did not extend too far below the 1.0 row of thesuperimposed virtual template pattern. A height x width x length calculation was performed of the volume of the prostate gland. The volumewas calculated at approximately 42 cm??. A few hypoechoic areas were visualized within the prostate gland. Also, significant calcifications were noted centrally within the prostate gland. A Scienion biopsy/brachytherapy template was mounted onto the ultrasound cradle unit. Two needles preloaded with Visicoil fiducial markers (.75 mm x 10 mm) were opened and available foruse. Each needle was placed independently through the template, through the perineum, and into the prostate gland under ultrasound guidance. Both axial and sagittal imaging methods were used to guidethe desired position of the needle. The marker was then deployed as the needle was being retracted and image verification was obtained showing satisfactory position of the marker. This was repeated for the other needle/marker as well. The ultrasound probe was removed, and the stepper/stabilizer unit was detached from the table. Perineum was cleaned. Bacitracin ointment was applied to the needle puncture sites at the skin. The patient's legs were carefully brought down from the lithotomy position to the table. Patient was transferred to the recovery room in stable condition Procedure Findings: 2 Visicoil fiducial markers successfully implanted into the prostate gland, to serve as aids to guide upcoming external beam radiation therapy. Estimated Blood Loss: nil Drains: * None in log * Packs/Other: No data recorded Specimen: Is there concern for infection at the time of the procedure?: No Disposition: PACU - hemodynamically stable. Condition: stable I was present for the entire procedure. documented in this encounter Plan of Treatment Upcoming Encounters Date Type Department Care Team (Late st Contact Info) Description 09/10/2025 1:00 PM EST Office Visit [facility] Rad [address] [address] Adriano Calvillo MD [address] [place] [id number] [email or web address] 09/29/2025 1:00 PM EST Treatment [facility] [address] [place] [address] Adriano Calvillo MD [address] [place] [id number] [email or web address] 09/30/2025 1:00 PM EST Treatment [facility] Onc [address] [place] [address] Adriano Calvillo MD [address] [place] [id number] [email or web address] 10/01/2025 1:00 PM EST Treatment [facility] Onc [address] [place] [place] [id number] Adriano Calvillo MD [address] [place] [id number] [email or web address] 10/02/2025 1:00 PM EST Treatment [facility] Onc [address] [place] [address] Adriano Calvillo MD [address] [place] [id number] [email or web address] 10/03/2025 1:00 PM EST Treatment [facility] Onc [address] [place] [address] Adriano Calvillo MD [address] [place] [id number] [email or web address] 10/06/2025 1:00 PM EST Treatment [facility] Onc [address] [place] [address] Adriano Calvillo MD [address] [place] [id number] [email or web address] 10/07/2025 1:00 PM EST Treatment [facility] Onc [address] [place] [place] [address] Adriano Calvillo MD [address] [place] [id number] [email or web address] 10/08/2025 1:00 PM EST Treatment [facility] Onc [address] [place] [address] Adriano Calvillo MD [address] [place] [id number] [email or web address] 10/10/2025 1:00 PM EST Treatment [facility] Onc [address] [place] [id number] Adriano Calvillo MD [address] [place] [address] [id number] [email or web address] 10/13/2025 1:00 PM EST Treatment [facility] Rad [address] [address] Adriano Calvillo MD [address] [place] [id number] [email or web address] 10/14/2025 1:00 PM EST Treatment [facility] Rad [address] [address] Adriano Calvillo MD [address] [place] [address] [id number] [email or web address] 10/15/2025 1:00 PM EST Treatment [facility] Onc [address] [place] [address] Adriano Calvillo MD [address] [place] [id number] [email or web address] 10/17/2025 1:00 PM EST Treatment [facility] Onc [address] [place] [address] Adriano Calvillo MD [address] [place] [id number] [email or web address] 10/20/2025 1:00 PM EST Treatment [facility] Onc [address] [place] [address] Adriano Calvillo MD [address] [place] [id number] [email or web address] 10/21/2025 1:00 PM EST Treatment [facility] Onc [address] [place] [address] Adriano Calvillo MD [address] [place] [id number] [email or web address] 10/22/2025 1:00 PM EST Treatment [facility] Onc [address] [place] [phone] Adriano Calvillo MD [address] [place] [address] [id number] [email or web address] 10/23/2025 1:00 PM EST Treatment [facility] Onc [address] [place] [address] Adriano Calvillo MD [address] [place] [id number] [email or web address] 10/24/2025 1:00 PM EST Treatment [facility] Onc [address] [place] [phone] Adriano Calvillo MD [address] [place] [id number] [email or web address] [facility] 10/27/2025 1:00 PM EST Treatment [facility] Rad Onc [address] [place] [address] [phone] Adriano Calvillo MD [address] [place] [address] [phone] [email or web address]@kit [email or web address] 10/28/2025 1:00 PM EST Treatment [facility] Rad Onc [address] [place] [address] [phone] Adriano Calvillo MD [address] [place] [address] [phone] [email or web address]@kit [email or web address] 10/29/2025 1:00 PM EST Treatment [facility] Rad Onc [address] [place] [address] [phone] Adriano Calvillo MD [address] [place] [address] [phone] [email or web address] 10/30/2025 1:00 PM EST Treatment [facility] Rad Onc [address] [place] [address] 71601 Adriano Calvillo MD [address] [place] [address] [phone] [email or web address]@kit [email or web address] 10/31/2025 1:00 PM EST Treatment [facility] Rad Onc [address] [place] [address] [phone] Adriano Calvillo MD [address] [place] [address] [phone] [email or web address] 11/04/2025 1:00 PM EST Treatment [facility] Rad Onc [address] [place] [address] 07721 Adriano Calvillo MD [address] [place] [address] [phone] [email or web address] 11/05/2025 1:00 PM EST Treatment [facility] Rad Onc [address] [place] [address] 11411 Adriano Calvillo MD [address] [place] [address] [phone] [email or web address]@kit [facility] 11/06/2025 1:00 PM EST Treatment [facility] Rad Onc [address] [place] [address] Adriano Calvillo MD [address] [place] [address] [phone] [email or web address] 11/07/2025 1:00 PM EST Treatment [facility] Rad Onc [address] [place] [address] Adriano Calvillo MD [address] [place] [address] [id number] [email or web address]@kit [email or web address] 11/10/2025 1:00 PM EST Treatment [facility] Rad Onc [address] [place] [place] [address] [phone] Adriano Calvillo MD [address] [place] [address] [id number] [email or web address]@kit [email or web address] 11/11/2025 1:00 PM EST Treatment [facility] Rad Onc [address] [place] [address] [phone] Adriano Calvillo MD [address] [place] [address] [phone] [email or web address] 11/12/2025 1:00 PM EST Treatment [facility] Rad Onc [address] [place] [address] 14182 Adriano Calvillo MD [address] [place] [address] [phone] DAVION@kit [facility] 11/13/2025 1:00 PM EST Treatment [facility] Rad Onc [address] [place] [address] 40656 Adriano Calvillo MD [address] [place] [address] [id number] DAVION@kit [facility] 11/14/2025 1:00 PM EST Treatment [facility] Rad Onc [address] [place] [place] [address] 64057 Adriano Calvillo MD [address] [place] [address] [phone] [email or web address]@kit [facility] 11/17/2025 1:00 PM EST Treatment [facility] Rad Onc [address] [place] [address] 58054 Adriano Calvillo MD [address] [place] [address] [phone] [email or web address]@kit [facility] 11/18/2025 1:00 PM EST Treatment [facility] Rad Onc [address] [place] [address] 30246 Adriano Calvillo MD [address] [place] [address] [phone] [email or web address]@kit [facility] 11/19/2025 10:10 AM EST Blood Draw [facility] at [facility] Phle[facility] Services [address] [place] [address] [phone] Edwin Mccormack MD [address] [place] [phone] 11/19/2025 11:00 AM EST Office Visit [facility] at [address] [address] Edwin Mccormack MD [address] [place] [phone] [email or web address] 11/19/2025 1:00 PM EST Treatment [facility] Rad Onc [address] [place] [address] 46402 Adriano Calvillo MD [address] [place] [address] [phone] DAVION@kit [facility] 11/20/2025 1:00 PM EST Treatment [facility] [address] [place] [address] 68265 Adriano Calvillo MD [address] [place] [address] [id number] DAVION@kit [facility] 11/21/2025 1:00 PM EST Treatment [facility] [place] [facility] [address] [address] Adriano Calvillo MD [address] [place] [address] [phone] [email or web address] 11/24/2025 1:00 PM EST Treatment [facility] On[facility] [address] [place] [address] 51617 Adriano Calvillo MD [address] [place] [address] [phone] [email or web address]@kit [facility] 11/25/2025 1:00 PM EST Treatment [facility] On[facility] [address] [place] [phone] Adriano Calvillo MD [address] [place] [address] [phone] [email or web address]@kit [email or web address] documented as of this encounter Procedures Procedure Name Priority Date/Time Associated Diagnosis Comments NE PLACE RADIOTHER DEVICE/MARKER, PROSTATE 08/21/2025 11:56 AM EST PROSTATE CANCER documented in this encounter Visit Diagnoses Not on filedocumented in this encounter Administered Medications Inactive Administered Medications - up to 3 most recent administrations Medication Order MAR Action Action Date Dose Rate Site acetaminophen (TYLENOL) 160 mg/5 mL (5 mL) oral suspension 650 mg 650 mg, Oral, Once as needed, mild pain or 1-3 (on a general 0-10 scale), Starting on Xiomara 08/21/25 at 1233, For 1 dose, Recovery Room (only), If unable to tolerate tablet. Shake Well acetaminophen (TYLENOL) tablet 650 mg 650 mg, Oral, Once as needed, mild pain or 1-3 (on a general 0-10 scale), Starting on Xiomara 08/21/25 at 1233, For 1 dose, Recovery Room (only) documented in this encounter Active and Recently Administered Medications Times are shown in EST. Continuous Medication Order 08/19/2025 08/20/2025 08/21/2025 lactated Ringers infusion 150 mL/hr, Intravenous, Continuous, Starting on Xiomara 08/21/25 at 1330, For 4 hours, Recovery Room (only) 1330 (Due) PRN Medication Order 08/19/2025 08/20/2025 08/21/2025 acetaminophen (TYLENOL) 160 mg/5 mL (5 mL) oral suspension 650 mg(Linked Group 1) 650 mg, Oral, Once as needed, mild pain or 1-3 (on a general 0-10 scale), Starting on Xiomara 08/21/25 at 1233, For 1 dose, Recovery Room (only), If unable to tolerate tablet. Shake Well acetaminophen (TYLENOL) tablet 650 mg(Linked Group 1) 650 mg, Oral, Once as needed, mild pain or 1-3 (on a general 0-10 scale), Starting on Xiomara 08/21/25 at 1233, For 1 dose, Recovery Room (only) bacitracin 500 unit/gram topical packet (CANCELED) As needed, Starting on Xiomara 08/21/25 at 1224, Intra-op/procedure 1224 (Given - Provid er: Adriano Calvillo MD) fentaNYL (PF) (SUBLIMAZE) injection 25-50 mcg 25-50 mcg, Intravenous, Every 5 min PRN, severe pain or 7-10 (on a general 0-10 scale), 1st line opioid analgesia, Starting on Xiomara 08/21/25 at 1233, For 8 doses, Recovery Room (only), Up to a max total dose of 200 mcg. Patient may opt to receive a pain med that is ordered for a lower level of pain HYDROmorphone (PF) (DILAUDID) injection syringe 0.1-0.2 mg 0.1-0.2 mg, Intravenous, Every 5 min PRN, severe pain or 7-10 (on a general 0-10 scale), 2nd line opioid analgesia, Starting on Xiomara 08/21/25 at 1233, For 10 doses, Recovery Room (only), Up to a max total dose of 2 mg. Patient may opt to receive a pain med that is ordered for a lower level of pain ondansetron (PF) (ZOFRAN) injection 2-4 mg 2-4 mg, Intravenous, Once as needed, other (free text field), 1st line antiemetic, Starting on Xiomara 08/21/25 at 1233, For 1 dose, Recovery Room (only) ondansetron (PF) (ZOFRAN) injection 2-4 mg 2-4 mg, Intravenous, Once as needed, other (free text field), 2nd line antiemetic, Starting on Xiomara 08/21/25 at 1233, For 1 dose, Recovery Room (only) oxyCODONE tablet 2.5 mg 2.5 mg, Oral, Once as needed, moderate pain or 4-6 (on a general 0-10 scale), Starting on Xiomara 08/21/25 at 1233, For 1 dose, Recovery Room (only), When tolerating PO's Linked Groups Order Group 1: acetaminophen (TYLENOL) tablet 650 mgJump to med 650 mg, Oral, Once as needed, mild pain or 1-3 (on a general 0-10 scale), Starting on Xiomara 08/21/25 at 1233, For 1 dose, Recovery Room (only) Or acetaminophen (TYLENOL) 160 mg/5 mL (5 mL) oral suspension 650 mgJump to med 650 mg, Oral, Once as needed, mild pain or 1-3 (on a general 0-10 scale), Starting on Xiomara 08/21/25 at 1233, For 1 dose, Recovery Room (only), If unable to tolerate tablet. Shake Well documented in this encounter Care Teams Pastry Baker Relationship Specialty Start Date End Date Phani Ruggiero MD [address] [place] [address] [address] [place] [address] PCP - General Internal Medicine 05/30/25 Self-Referred, Patient Referring Physician 05/30/25 Ozzy Hernandez MD [address] [facility] [address] [place] [address] [email or web address] Referring Physician Urology 06/02/25 Edwin Mccormack MD [address] [place] [phone] Medical Oncology 06/02/25 Justen Taylor MD [address] [place] [address] [phone] [email or web address] Radiation Oncology 07/01/25 documented as of this encounter Additional Source Comments The information contained in this document represents components of the legal health record. It is not the complete legal health record.[facility]
--- OUTSIDE RECORDS SUMMARY | 2025-08-21 11:30 | XMS_ITS | Encounter Summary ---
Author Organization [facility] Address [address] [facility] [address] [place] [phone] Phone Care Team Providers Care Administrative Tech Name Role Phone Phani Ruggiero MD Primary Care Provider Self-Referred, Patient Unavailable Unavailab Ozzy Gurrola MD Unavailable Edwin Mccormack MD Unavailable Justen Taylor MD Unavailable Reason for Visit * Auth/Cert (Routine) Specialty Diagnoses / Procedures Referred By Ju [email or web address] Referred To Contact Diagnoses PROSTATE CANCER Procedures IN PLACE RADIOTHER DEVICE/MARKER, PROSTATE TRANSPERINEAL INSERTION FIDUCIAL MARKERS PROSTATE GLAND Referral ID Status Reason Start Date Expiration Date Visits Re quested Visits Authorized [id number] 1 1 Encounter Details Date Type Department Care Team (Late st Contact Info) Description 08/21/2025 11:30 AM EST - 08/21/2025 12:41 PM EST Surgery OR Admitting Dept - Virtual Department [address] [place] [address] Adriano Calvillo MD [address] [place] [phone] [email or web address] TRANSPERINEAL INSERTION FIDUCIAL MARKERS PROSTATE GLAND Surgery Details Date/Time Status Location OR Service Patient Class Case Class Case Type Trauma Case? 08/21/2025 11:30 AM Posted [facility] OR OR 04 Radiation Oncology Day Surgery Panel 1 Procedure LRB Anes Op Region Wound Class Comments TRANSPERINEAL INSERTION FIDUCIAL MARKERS PROSTATE GLAND N/A General Clean Con taminated (2) Surgeon Surgeon Role Service Panel Adriano Calvillo MD Primary Radiation Oncology 1 documented in this encounter Social History Tobacco Use Types Packs/Day Years [...] Sign Reading Time Taken Comments Blood Pressure 129/58 08/21/2025 12:40 PM EST Pulse 41 08/21/2025 12:40 PM EST Temperature 36.3 C (97.3 F) 08/21/2025 12:30 PM EST Respiratory Rate 14 08/21/2025 12:40 PM EST Oxygen Saturation 93% 08/21/2025 12:40 PM EST Inhaled Oxygen Concentration - - Weight 95.7 kg (211 lb) 08/21/2025 10:15 AM EST Height 172.7 cm (5' 8 ) 08/21/2025 10:15 AM EST Body Mass Index 32.08 08/21/2025 10:15 AM EST documented in this encounter Functional Status * Calculated C-SSRS Risk Score (Lifetime/Recent) Answer Date of Assessment Author No Risk Indicated 08/21/2025 10:19 AM EST Hodan Rebollar nd, RN * [place] Suicide Severity Rating Scale (Screener/Recent Self-Report) Question [...] concerns Dr Calvillo at Radiation Oncology - [phone] documented in this encounter Medications at Time of Discharge amLODIPine (NORVASC) 10 MG tablet Take 10 mg by mouth daily. apalutamide (ERLEADA) 240 mg tabletIndications :Malignant neoplasm of prostate Take 1 tablet (240 mg total) by mouth daily. Follow instructions given by provider. 30 tablet 11 07/10/2025 aspirin 81 MG EC tablet Take [...] mg total) by mouth daily. 30 tablet 11 07/14/2025 spironolactone (ALDACTONE) 25 MG tablet Take [...] 9 adenocarcinoma in 7 separate core biopsies; Miami score 4+3 = 7 adenocarcinoma was present in [address] scan was done on 06/06/2025 at [facility] and showed hypermetabolic pelvicand retroperitoneal lymphadenopathy [...] to receive his radiation therapy here at [facility] [place]. 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 A [employer] biopsy/brachytherapy template was mounted onto the ultrasound [...] Description 09/10/2025 1:00 PM EST Office Visit [facility] Rad Onc [address] [place] [address] 18293 Adriano Calvillo MD [address] [place] [address] [email or web address]@[email or web address] 09/29/2025 1:00 PM EST Treatment [facility] Rad Onc [address] [place] [address] Adriano Calvillo MD [address] [place] [address] [phone] [email or web address]@[email or web address] 09/30/2025 1:00 PM EST Treatment [facility] Rad Onc [address] [place] [address] Adriano Calvillo MD [address] [place] [address] [phone] [email or web address] 10/01/2025 1:00 PM EST Treatment [facility] Rad Onc [address] [place] [address] Adriano Calvillo MD [address] [place] [address] [phone] [email or web address] 10/02/2025 1:00 PM EST Treatment [facility] Rad Onc [address] [place] [address] 20940 Adriano Calvillo MD [address] [place] [address] [phone] [email or web address] 10/03/2025 1:00 PM EST Treatment [facility] Rad Onc [address] [place] [address] 42075 Adriano Calvillo MD [address] [place] [address] [id number] [email or web address] 10/06/2025 1:00 PM EST Treatment [facility] Rad Onc [address] [place] [address] 40669 Adriano Calvillo MD [address] [place] [address] [phone] [email or web address] 10/07/2025 1:00 PM EST Treatment [facility] Rad Onc [address] [place] [address] 07142 Adriano Calvillo MD [address] [place] [address] [phone] [email or web address]@[email or web address] 10/08/2025 1:00 PM EST Treatment [facility] Rad Onc [address] [place] [address] Adriano Calvillo MD [address] [place] [address] [phone] [email or web address] 10/10/2025 1:00 PM EST Treatment [facility] Rad Onc [address] [place] [address] 41865 Adriano Calvillo MD [address] [place] [address] [phone] [email or web address] 10/13/2025 1:00 PM EST Treatment [facility] Rad [address] [address] Adriano Calvillo MD [address] [place] [address] [phone] [email or web address] 10/14/2025 1:00 PM EST Treatment [facility] Rad Onc [address] [place] [address] 065[address] Adriano Calvillo MD [address] [place] [address] [phone] [email or web address] 10/15/2025 1:00 PM EST Treatment [facility] Rad Onc [address] [place] [address] 91400 Adriano Calvillo MD [address] [place] [address] 18547 DAVION@[email or web address] 10/17/2025 1:00 PM EST Treatment [facility] Rad Onc [address] [place] [address] 82946 Adriano Calvillo MD [address] [place] [address] [phone] [email or web address] 10/20/2025 1:00 PM EST Treatment [facility] Rad Onc [address] [place] [address] 90514 Adriano Calvillo MD [address] [place] [address] 32226 DAVION@[email or web address] 10/21/2025 1:00 PM EST Treatment [facility] Rad Onc [address] [place] [address] 34955 Adriano Calvillo MD [address] [place] [address] [phone] DAVION@[email or web address] 10/22/2025 1:00 PM EST Treatment [facility] Rad Onc [address] [place] [address] 84295 Adriano Calvillo MD [address] [place] [address] [phone] [email or web address] 10/23/2025 1:00 PM EST Treatment [facility] Rad Onc [address] [place] [address] 49768 Adriano Calvillo MD [address] [place] [address] 60174 DAVION@[email or web address] 10/24/2025 1:00 PM EST Treatment [facility] Rad Onc [address] [place] [address] 98372 Adriano Calvillo MD [address] [place] [address] [phone] DAVION@[email or web address] 10/27/2025 1:00 PM EST Treatment [facility] Rad Onc [address] [place] [address] 68578 Adriano Calvillo MD [address] [place] [address] [phone] [email or web address] 10/28/2025 1:00 PM EST Treatment [facility] Rad Onc [address] [place] [address] 65086 Adriano Calvillo MD [address] [place] [address] [phone] [email or web address] 10/29/2025 1:00 PM EST Treatment [facility] Rad [address] [address] Adriano Calvillo MD [address] [place] [address] [phone] [email or web address] 10/30/2025 1:00 PM EST Treatment [facility] Rad Onc [address] [place] [address] 39995 Adriano Calvillo MD [address] [place] [address] [phone] [email or web address] 10/31/2025 1:00 PM EST Treatment [facility] Rad Onc [address] [place] [address] 73374 Adriano Calvillo MD [address] [place] [address] 51478 [email or web address] 11/04/2025 1:00 PM EST Treatment [facility] Rad Onc [address] [place] [address] 95365 Adriano Calvillo MD [address] [place] [address] [id number] DAVION@[email or web address] 11/05/2025 1:00 PM EST Treatment [facility] Rad Onc [address] [place] [address] Adriano Calvillo MD [address] [place] [address] [phone] [email or web address] 11/06/2025 1:00 PM EST Treatment [facility] Rad Onc [address] [place] [address] 19512 Adriano Calvillo MD [address] [place] [address] 53060 DAVION@[email or web address] 11/07/2025 1:00 PM EST Treatment [facility] Rad Onc [address] [place] [address] 81644 Adriano Calvillo MD [address] [place] [address] 66060 DAVION@[email or web address] 11/10/2025 1:00 PM EST Treatment [facility] Rad Onc [address] [place] [address] 92934 Adriano Calvillo MD [address] [place] [address] [phone] DAVION@[email or web address] 11/11/2025 1:00 PM EST Treatment [facility] Rad Onc [address] [place] [address] 70033 Adriano Calvillo MD [address] [place] [address] [phone] DAVION@[email or web address] 11/12/2025 1:00 PM EST Treatment [facility] Onc [address] [place] [address] 87895 Adriano Calvillo MD [address] [place] [address] [phone] DAVION@[email or web address] 11/13/2025 1:00 PM EST Treatment [facility] Rad Onc [address] [place] [address] 24227 Adriano Calvillo MD [address] [place] [address] [phone] [email or web address] 11/14/2025 1:00 PM EST Treatment [facility] Rad Onc [address] [place] [address] 15358 Adriano Calvillo MD [address] [place] [address] [phone] [email or web address] 11/17/2025 1:00 PM EST Treatment [facility] Rad Onc [address] [place] [address] 01465 Adriano Calvillo MD [address] [place] [address] 61078 DAVION@[email or web address] 11/18/2025 1:00 PM EST Treatment [facility] Rad Onc [address] [place] [address] 43232 Adriano Calvillo MD [address] [place] [address] [phone] [email or web address]@[email or web address] 11/19/2025 10:10 AM EST Blood Draw [facility] at [facility] Phlebotomy Services [address] [place] [address] 03305 Edwin Mccormack MD [address] [place] [phone] 11/19/2025 11:00 AM EST Office Visit [facility] [address] [address] Edwin Mccormack MD 20 [place] [address] 11/19/2025 1:00 PM EST Treatment [facility] Rad Onc [address] [place] [address] 00134 Adriano Calvillo MD [address] [place] [address] [phone] DAVION@[email or web address] 11/20/2025 1:00 PM EST Treatment [facility] Rad Onc [address] [place] [address] 82644 Adriano Calvillo MD [address] [place] [address] [phone] [email or web address]@[email or web address] 11/21/2025 1:00 PM EST Treatment [facility] Rad Onc [address] [place] [address] 20410 Adriano Calvillo MD [address] [place] [address] 19319 DAVION@[email or web address] 11/24/2025 1:00 PM EST Treatment [facility] Rad Onc [address] [place] [address] 20874 Adriano Calvillo MD [address] [place] [address] 44062 DAVION@[email or web address] 11/25/2025 1:00 PM EST Treatment [facility] Rad Onc [address] [place] [address] 08295 Adriano Calvillo MD [address] [place] [address] [email or web address] documented as of this encounter Procedures Procedure Name Priority Date/Time Associated Diagnosis Comments IN PLACE RADIOTHER DEVICE/MARKER, PROSTATE 08/21/2025 11:56 AM [...] Room (only) bacitracin 500 unit/gram topical packet As needed, Starting on Xiomara 08/21/25 at 1224, Intra-op/procedure Given 08/21/2025 12:24 PM EST 1 packet documented in this encounter Active and Recently [...] Room (only), If unable to tolerate tablet. Shabelle Well documented in this encounter Care Teams Administrative Tech Relationship Specialty Start Date End Date Phani Ruggiero MD [address] [place] [address] [address] [place] [address] PCP - General Internal Medicine 05/30/25 Self-Referred, Patient Referring Physician 05/30/25 Ozzy Hernandez MD [address] [facility] [address] [place] [address] [email or web address] Referring Physician Urology 06/02/25 Edwin Mccormack MD [address] [place] [phone] [email or web address] Medical Oncology 06/02/25 Justen Taylor MD [address] [place] [address] [email or web address] Radiation Oncology 07/01/25 documented as of this encounter Additional Source Comments The information contained in this document represents components of the legal health record. It is not the complete legal health record.[facility]
--- OUTSIDE RECORDS SUMMARY | 2025-08-21 11:56 | XMS_ITS | Encounter Summary ---
Author Organization [facility] Address [address] [facility] [address] [place] [phone] Phone Care Team Providers Care Betting Agency Counter Clerk Name Role Phone Phani Ruggiero MD Primary Care Provider Self-Referred, Patient Unavailable Unavailab Ozzy Gurrola MD Unavailable Edwin Mccormack MD Unavailable Justen Taylor MD Unavailable Reason for Visit * Auth/Cert (Routine) Specialty Diagnoses / Procedures Referred By Ju [email or web address] Referred To Contact Diagnoses PROSTATE CANCER Procedures NM PLACE RADIOTHER DEVICE/MARKER, PROSTATE TRANSPERINEAL INSERTION FIDUCIAL MARKERS PROSTATE GLAND Referral ID Status Reason Start Date Expiration Date Visits Re quested Visits Authorized [id number] 1 1 Encounter Details Date Type Department Care Team (Late st Contact Info) Description 08/21/2025 11:56 AM EST Anesthesia Event OR Admitting Dept - Virtual Department [address] [place] [phone] Ricki Johnson MD [address] [place] [address] Anesthesia Record Procedure Summary Procedure Name Responsible Anesthesiologist Anesthesia Start Time Anesthesia Stop Time TRANSPERINEAL INSERTION FIDUCIAL MARKERS PROSTATE GLAND Ricki Johnson MD 08/21/25 1156 08/21/25 1226 Events Date Time Event Comment 08/21/2025 1115 1156 An Start 1156 An Start Data 1156 In Room 1203 An LMA 1208 Procedure Start 1222 LMA Removal 1222 Procedure End 1225 an stop data 1226 An Stop 1228 Out of Room 1230 Post Op Handoff Meds Name Total lidocaine 2% 80 mg propofol 10 mg/mL 278.43 mg Lactated Ringers 1000ml 250 mL * Agents Name O2 exp Air O2 Flow (fresh gas) * Blood No blood administrations on file. Lines, Drains, and Airways Type Details Placement Removal MIS Incisions 08/21/25; Transperin eal insertion fiducial markers into prostate; (2) 08/21/25 0000 by Cindi Rivera RN Peripheral IV Placement Date: 04/09; Placement Time: 1036; Size: 20 G; Orientation: Posterior, Right; Location: Hand; Attempts: 1; Patient Tolerance: Tolerated well 08/21/25 1036 by Hodan Aguilera RN LMA Placement Date: 04/09; Placement Time: 1203; Removal Date: 08/21/25; Removal Time: 1222 08/21/25 1203 by Ricki Johnson MD 08/21/25 1222 by Ricki Johnson MD documented in this encounter Social History Tobacco [...] your housing situation today? I have sin newberry 06/03/2025 How many times have you move [...] AM EDT documented as of this encounter Functional Status * Calculated C-SSRS Risk Score (Lifetime/Recent) Answer Date of Assessment Author No Risk Indicated 08/21/2025 10:19 AM Hodan Saleem nd, RN * [place] Suicide Severity Rating Scale (Screener/Recent Self-Report) Question Answer Date of Assessment Author 2. Non-Specific Active Suicidal Thoughts (Past 1 Month) No 08/21/2025 10:19 AM Matthew Casas RN documented as of this encounter Procedure Notes * Ricki Johnson MD - 08/21/2025 12:03 PM ESTAssociated Order(s): Airway Placement Airway Placement Procedure Note: Procedure performed by: anesthesiologist Anesthesiologist: Ricki Johnson MD Airway procedure initiated at:08/21/2025 12:03 PM and ended at 08/21/2025 12:03 PM. Personal Protective Equipment: Mask: surgical mask Eye Protection: eye shield Gloves: gloves Mask Ventilation: Quality: easy Airway Placement: Technique: LMA LMA Insertion: LMA size: 4 LMA placement attempts: 1. Outcomes: Evidence of dental injury? no Complications observed? no documented in this encounter OR Notes * Anesthesia Postprocedure Evaluation - Ricki Johnson MD - 08/21/2025 12:35 PM EST Anesthesia Post Operative Note Anesthesia Type: general Patient evaluated in: Phase II Consciousness: awake Airway/ Respiratory Status: Airway adjuncts: no airway adjuncts. Respiratory Status: no airway complications. Supplemental O2: room air Nausea/ Vomiting: nausea and vomiting control satisfactory Hydration status: adequate Analgesia/ Pain: Current pain score: 0 Pain control is: adequate Vital Signs: Post-procedure vital signs reviewed Other: Patient experienced no anesthesia complications. Patient does not report unexpected awareness during procedure. Patient's questions answered. Patient satisfied with anesthesia care. PACU Discharge Disposition: home Entered by: Ricki Johnson MD No notable events documented. Vital Signs: Vitals Value Taken Time Pulse 42 08/21/25 12:35 BP 117/64 08/21/25 12:30 SpO2 93 % 08/21/25 12:35 Resp 15 08/21/25 12:35 Temp 36.3 ??C (97.3 ??F) 08/21/25 12:30 Vitals shown include unfiled device data. No vitals data found for the desired time range. * Anesthesia Preprocedure Evaluation - Ricki Johnson MD - 08/21/2025 7:58 AM EST Patient: Adriano Segura Date of Surgery: 08/21/2025 Procedure: TRANSPERINEAL INSERTION FIDUCIAL MARKERS PROSTATE GLAND Surgeons and Role: * Adriano Calvillo MD - Primary Relevant Problems HEMATOLOGIC/ONCOLOGIC (+) Malignant neoplasm of prostate General: Patient snapshot reviewed. History (imported from record): Past Medical History: No date: Adverse effect of anesthetic Comment: woke up during deviated septum repair No date: Carpal tunnel syndrome No date: GERD (gastroesophageal reflux disease) 1.15: Hypertensive disorder No date: Piriformis syndrome No date: Prostate cancer - Past Surgical History: 1.19: BACK SURGERY Comment: disc surgery in lumbar spine x 2 1.05: INGUINAL HERNIA REPAIR; Left 06/2017: KNEE CARTILAGE SURGERY; Right 1994: NASAL SEPTUM SURGERY No date: SHOULDER SURGERY; Bilateral 2020: TOTAL KNEE ARTHROPLASTY; Right - Review of patient's family history indicates: Problem: Stroke Relation: Mother Age of Onset: (Not Specified) Problem: Melanoma Relation: Father Age of Onset: (Not Specified) Problem: Cancer Relation: Father Age of Onset: (Not Specified) Problem: Other (kidney cancer) Relation: Son Age of Onset: (Not Specified) - Social History: Social History Tobacco Use Smoking status: Never Smokeless tobacco: Never Vaping Use Vaping status: never used Alcohol use: Never Drug use: Never - Prior Anesthetics: Previous Anesthesia Records Displaying the 20 most recent records Date Procedure Department Animal Rescuer Notable Events Planned Anesthesia Type 08/21/25 TRANSPERINEAL INSERTION FIDUCIAL MARKERS PROSTATE GLAND OR Admitting Dept - Virtual Department 08/14/25 See report for details [facility] Endoscopy - - - Physical Exam Airway: The airway exam is normal. Mallampati score: II. Neck ROM is full. Mouth opening: normal. TM distance: normal. Dental: No notable dental hx. Cardiovascular: The cardiovascular exam is normal. Pulmonary: The pulmonary exam is normal. Neurological: The neurological exam is normal. Vital Signs (imported from record): There were no vitals taken for this visit. - Imaging and Additional Testing (imported from record): The following test(s) were reviewed: EKG, echocardiogram and stress test. Anesthesia Assessment and Plan ASA physical status: 3 Primary anesthetic: general Induction type: intravenous Airway: The plan for the airway is: LMA. Monitoring/Lines: The plan for monitoring and lines is: standard monitor. Post-op destination/disposition: PACU Informed Consent: Anesthetic plan and risks discussed with: patient. documented in this encounter Plan of Treatment Upcoming Encounters Date Type Department Care Team (Late st Contact Info) Description 09/10/2025 1:00 PM EST Office Visit [facility] Rad Onc [address] [place] [address] Adriano Calvillo MD [address] [place] [address] [email or web address] 09/29/2025 1:00 PM EST Treatment [facility] Rad Onc [address] [place] [address] Adriano Calvillo MD [address] [place] [address] [email or web address] 09/30/2025 1:00 PM EST Treatment [facility] Rad Onc [address] [place] [address] Adriano Calvillo MD [address] [place] [address] [email or web address] 10/01/2025 1:00 PM EST Treatment [facility] Rad Onc [address] [place] [address] Adriano Calvillo MD [address] [place] [address] 38852 [email or web address] 10/02/2025 1:00 PM EST Treatment [facility] Rad Onc [address] [place] [address] Adriano Calvillo MD [address] [place] [address] [email or web address] 10/03/2025 1:00 PM EST Treatment [facility] Rad Onc [address] [place] [address] Adriano Calvillo MD [address] [place] [address] [id number] [email or web address] 10/06/2025 1:00 PM EST Treatment [facility] Rad Onc [address] [place] [address] Adriano Calvillo MD [address] [place] [address] 600[address] [email or web address] 10/07/2025 1:00 PM EST Treatment [facility] Rad Onc [address] [place] [address] Adriano Calvillo MD [address] [place] [address] 66715 [email or web address] 10/08/2025 1:00 PM EST Treatment [facility] Rad Onc [address] [place] [address] Adriano Calvillo MD [address] [place] [address]199 [email or web address] 10/10/2025 1:00 PM EST Treatment [facility] Rad Onc [address] [place] [address] Adriano Calvillo MD [address] [place] [address] 78152 [email or web address] 10/13/2025 1:00 PM EST Treatment [facility] Rad Onc [address] [place] [address] Adriano Calvillo MD [address] [place] [address] 53064 [email or web address] 10/14/2025 1:00 PM EST Treatment [facility] Rad Onc [address] [place] [address] Adriano Calvillo MD [address] [place] [address] [phone] [email or web address] 10/15/2025 1:00 PM EST Treatment [facility] Rad Onc [address] [place] [address] 17546 Adriano Calvillo MD [address] [place] [address] 93064 [email or web address] 10/17/2025 1:00 PM EST Treatment [facility] Rad Onc [address] [place] [address] 19654 Adriano Calvillo MD [address] [place] [address] [phone] [email or web address] 10/20/2025 1:00 PM EST Treatment [facility] Rad Onc [address] [place] [address] 09074 Adriano Calvillo MD [address] [place] [address] [phone] [email or web address] 10/21/2025 1:00 PM EST Treatment [facility] Rad Onc [address] [place] [address] 56808 Adriano Calvillo MD [address] [place] [address] 19331 [email or web address] 10/22/2025 1:00 PM EST Treatment [facility] Rad Onc [address] [place] [address] 9[address] Adriano Calvillo MD [address] [place] [address] 01710 [email or web address] 10/23/2025 1:00 PM EST Treatment [facility] Rad Onc [address] [place] [address] 36900 Adriano Calvillo MD [address] [place] [address] 15361 [email or web address] 10/24/2025 1:00 PM EST Treatment [facility] Rad Onc [address] [place] [address] Adriano Calvillo MD [address] [place] [address] [phone] [email or web address] 10/27/2025 1:00 PM EST Treatment [facility] Rad Onc [address] [place] [address] 66497 Adriano Calvillo MD [address] [place] [address] 99172 [email or web address] 10/28/2025 1:00 PM EST Treatment [facility] Rad Onc [address] [place] [address] 30522 Adriano Calvillo MD [address] [place] [address] 27500 [email or web address] 10/29/2025 1:00 PM EST Treatment [facility] Rad Onc [address] [place] [address] 81729 Adriano Calvillo MD [address] [place] [address] 67285 [email or web address] 10/30/2025 1:00 PM EST Treatment [facility] Rad Onc [address] [place] [address] Adriano Calvillo MD [address] [place] [address] 42380 [email or web address] 10/31/2025 1:00 PM EST Treatment [facility] Rad Onc [address] [place] [address] Adriano Calvillo MD [address] [place] [address] [phone] [email or web address] 11/04/2025 1:00 PM EST Treatment [facility] Rad Onc [address] [place] [address] 56557 Adriano Calvillo MD [address] [place] [address] 40324 [email or web address] 11/05/2025 1:00 PM EST Treatment [facility] Rad [address] [address] Adriano Calvillo MD [address] [place] [address] 64038 [email or web address] 11/06/2025 1:00 PM EST Treatment [facility] Rad Onc [address] [place] [address] 47046 Adriano Calvillo MD [address] [place] [address] 61823 [email or web address] 11/07/2025 1:00 PM EST Treatment [facility] Rad Onc [address] [place] [address] 51645 Adriano Calvillo MD [address] [place] [address] 72734 [email or web address] 11/10/2025 1:00 PM EST Treatment [facility] Rad Onc [address] [place] [address] 98868 Adriano Calvillo MD [address] [place] [address] [phone] [email or web address] 11/11/2025 1:00 PM EST Treatment [facility] Rad Onc [address] [place] [address] Adriano Calvillo MD [address] [place] [address] [phone] [email or web address] 11/12/2025 1:00 PM EST Treatment [facility] Rad Onc [address] [place] [address] Adriano Calvillo MD [address] [place] [address] 62009 [email or web address] 11/13/2025 1:00 PM EST Treatment [facility] Rad Onc [address] [place] [address] 43021 Adriano Calvillo MD [address] [place] [address] 30770 [email or web address] 11/14/2025 1:00 PM EST Treatment [facility] Rad Onc [address] [place] [address] 65[address] Adriano Calvillo MD [address] [place] [address] 24132 [email or web address] 11/17/2025 1:00 PM EST Treatment [facility] Rad Onc [address] [place] [address] Adriano Calvillo MD [address] [place] [address] [phone] [email or web address] 11/18/2025 1:00 PM EST Treatment [facility] Rad Onc [address] [place] [address]153 Adriano Calvillo MD [address] [place] [address] [phone] [email or web address] 11/19/2025 10:10 AM EST Blood Draw DF/[facility] at [facility] Phlebotomy Services [address] [place] [address] Edwin Mccormack MD [address] [place] [phone] [email or web address] 11/19/2025 11:00 AM EST Office Visit [facility] at [address] [address] Edwin Mccormack MD [address] [place] [phone] [email or web address] 11/19/2025 1:00 PM EST Treatment [facility] Rad Onc [address] [place] [address] 85665 Adriano Calvillo MD [address] [place] [address] 47134 [email or web address] 11/20/2025 1:00 PM EST Treatment [facility] Rad Onc [address] [place] [address] 80419 Adriano Calvillo MD [address] [place] [address] [phone] [email or web address] 11/21/2025 1:00 PM EST Treatment [facility] Rad Onc [address] [place] [address] 31034 Adriano Calvillo MD [address] [place] [address] 14599 [email or web address] 11/24/2025 1:00 PM EST Treatment [facility] Rad Onc [address] [place] [address] Adriano Calvillo MD [address] [place] [address] [email or web address] 11/25/2025 1:00 PM EST Treatment [facility] Rad Onc [address] [place] [address] Adriano Calvillo MD [address] [place] [address] [phone] [email or web address] documented as of this encounter Goals Goal Patient Goal Type Associated Problems Recent Progress Patient-Stated? Author Autogenerat ed Goal Care Plan Autogenerated Problem No Optime, Admin documented as of this encounter Procedures Procedure Name Priority Date/Time Associated Diagnosis Comments AIRWAY PLACEMENT Routine 08/21/2025 12:0 3 PM EST documented in this encounter Results * ANES ETT DOUBLE LUMEN - AIRWAY LDA (08/21/2025 12:03 PM EST) Narrative Ricki Johnson MD - 08/21/2025 12:03 PM EST Ricki Johnson MD 08/21/2025 12:03 PM Airway Placement Procedure Note: Procedure performed by: anesthesiologist Anesthesiologist: Ricki Johnson MD Airway procedure initiated at:08/21/2025 12:03 PM and ended at 08/21/2025 12:03 PM. Personal Protective Equipment: Mask: surgical mask Eye Protection: eye shield Gloves: gloves Mask Ventilation: Quality: easy Airway Placement: Technique: LMA LMA Insertion: LMA size: 4 LMA placement attempts: 1. Outcomes: Evidence of dental injury? no Complications observed? no Ricki Johnson MD NM ANESTHESIA Final Result documented in this encounter Visit Diagnoses Not on filedocumented in this encounter Administered Medications Inactive Administered Medications - up to 3 most recent administrations Medication Order MAR Action Action Date Dose Rate Site lactated Ringers infusion Intravenous, Continuous PRN, Starting on Xiomara 08/21/25 at 1156, Anesthesia Intra-op New Bag 08/21/2025 11:56 AM EST lidocaine (XYLOCAINE) 2% injection Intravenous, As needed, Starting on Xiomara 08/21/25 at 1200, Anesthesia Intra-op Given 08/21/2025 12:00 PM EST 80 mg propofol (DIPRIVAN) infusion Intravenous, As needed, Starting on Xiomara 08/21/25 at 1201, Anesthesia Intra-op New Bag 08/21/2025 12:04 PM EST 150 mcg/kg/min 71.37 mL/hr Given 08/21/2025 12:01 PM EST 100 mg documented in this encounter Additional Health Concerns Active Problems Noted Date Diagnosed Date Autogenerated Problem 08/21/2025 documented as of this encounter Care Teams Betting Agency Counter Clerk Relationship Specialty Start Date End Date Phani Ruggiero MD [address] [place] [address] [address] [place] [address] PCP - General Internal Medicine 05/30/25 Self-Referred, Patient Referring Physician 05/30/25 Ozzy Hernandez MD [address] [facility] [address] [place] [address] [email or web address] Referring Physician Urology 06/02/25 Edwin Mccormack MD [address] [place] [address] [phone] [email or web address] Medical Oncology 06/02/25 Justen Taylor MD [address] [place] [address] [email or web address] Radiation Oncology 07/01/25 documented as of this encounter Additional Source Comments The information contained in this document represents components of the legal health record. It is not the complete legal health record.[facility]
--- OUTSIDE RECORDS SUMMARY | 2025-08-25 12:24 | XMS_ITS | Encounter Summary ---
Author Organization [facility] Address [address] [place] [address] Phone Care Team Providers Care Supervisor Audit Clerks Name Role Phone Phani Ruggiero MD Primary Care Provider Self-Referred, Patient Unavailable Unavailab Ozzy Gurrola MD Unavailable Edwin Mccormack MD Unavailable Justen Taylor MD Unavailable Reason for Visit * Reason Onset Date Comments anu med question 08/12/2025 Encounter Details Date Type Department Care Team (Late st Contact Info) Description 08/12/2025 Telephone [facility] at [address] [address] Jacy Morris [address] [place] [phone] [email or web address] anu med question Social History Tobacco Use Types Packs/Day Years [...] as of this encounter Progress Notes * Jacy Morris - 08/12/2025 12:55 PM EDT 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 Yes Reason for Call: Medication Management Patient would like to know if it is okay to take his erleada the day before his colonoscopy. documented in this encounter Plan of Treatment Upcoming Encounters Date Type Department Care Team (Late st Contact Info) Description 09/10/2025 1:00 PM EST Office Visit [facility] Rad Onc [address] [place] [address] Adriano Calvillo MD [address] [place] [phone] [email or web address] 09/29/2025 1:00 PM EST Treatment [facility] Rad Onc [address] [place] [address] Adriano Calvillo MD [address] [place] [phone] [email or web address] 09/30/2025 1:00 PM EST Treatment [facility] Rad Onc [address] [place] [address] Adriano Calvillo MD [address] [place] [address] [email or web address] 10/01/2025 1:00 PM EST Treatment [facility] Rad Onc [address] [place] [address] Adriano Calvillo MD [address] [place] [address] [email or web address] 10/02/2025 1:00 PM EST Treatment [facility] Rad Onc [address] [place] [address] Adriano Calvillo MD [address] [place] [address] [email or web address] 10/03/2025 1:00 PM EST Treatment [facility] Rad Onc [address] [place] [address] Adriano Calvillo MD [address] [place] [phone] [email or web address] 10/06/2025 1:00 PM EST Treatment [facility] Rad Onc [address] [place] [address] Adriano Calvillo MD [address] [place] [phone] [email or web address] 10/07/2025 1:00 PM EST Treatment [facility] Rad Onc [address] [place] [address] Adriano Calvillo MD [address] [place] [address] [email or web address] 10/08/2025 1:00 PM EST Treatment [facility] Rad Onc [address] [place] [address] Adriano Calvillo MD [address] [place] [address] [email or web address] 10/10/2025 1:00 PM EST Treatment [facility] Rad Onc [address] [place] [address] Adriano Calvillo MD [address] [place] [address]50 [email or web address] 10/13/2025 1:00 PM EST Treatment [facility] Rad Onc [address] [place] [address] Adriano Calvillo MD [address] [place] [address] 90073 [email or web address] 10/14/2025 1:00 PM EST Treatment [facility] Rad Onc [address] [place] [address] Adriano Calvillo MD [address] [place] [address] [email or web address] 10/15/2025 1:00 PM EST Treatment [facility] Rad Onc [address] [place] [address] Adriano Calvillo MD [address] [place] [address] [email or web address] 10/17/2025 1:00 PM EST Treatment [facility] Rad Onc [address] [place] [address] Adriano Calvillo MD [address] [place] [phone] [email or web address] 10/20/2025 1:00 PM EST Treatment [facility] Rad Onc [address] [place] [address] Adriano Calvillo MD [address] [place] [address] [phone] [email or web address] 10/21/2025 1:00 PM EST Treatment [facility] Rad Onc [address] [place] [address] Adriano Calvillo MD [address] [place] [address] [phone] [email or web address] 10/22/2025 1:00 PM EST Treatment [facility] Rad Onc [address] [place] [address] Adriano Calvillo MD [address] [place] [address] [email or web address] 10/23/2025 1:00 PM EST Treatment [facility] Rad Onc [address] [place] [address] Adriano Calvillo MD [address] [place] [address] 65[address] [email or web address] 10/24/2025 1:00 PM EST Treatment [facility] Rad [address] [address] Adriano Calvillo MD [address] [place] [address] [email or web address] 10/27/2025 1:00 PM EST Treatment [facility] Rad Onc [address] [place] [address] Adriano Calvillo MD [address] [place] [address] 55[address] [email or web address] 10/28/2025 1:00 PM EST Treatment [facility] Rad Onc [address] [place] [address] Adriano Calvillo MD [address] [place] [address] 34835 [email or web address] 10/29/2025 1:00 PM EST Treatment [facility] Rad Onc [address] [place] [address] Adriano Calvillo MD [address] [place] [address]3356 [email or web address] 10/30/2025 1:00 PM EST Treatment [facility] Rad Onc [address] [place] [address] Adriano Calvillo MD [address] [place] [address] 11368 [email or web address] 10/31/2025 1:00 PM EST Treatment [facility] Rad Onc [address] [place] [address] Adriano Calvillo MD [address] [place] [address] [phone] [email or web address] 11/04/2025 1:00 PM EST Treatment [facility] Rad Onc [address] [place] [address] Adriano Calvillo MD [address] [place] [phone] [email or web address] 11/05/2025 1:00 PM EST Treatment [facility] Rad Onc [address] [place] [address] Adriano Calvillo MD [address] [place] [address] 31899 [email or web address] 11/06/2025 1:00 PM EST Treatment [facility] Rad Onc [address] [place] [address] Adriano Calvillo MD [address] [place] [address] [phone] [email or web address] 11/07/2025 1:00 PM EST Treatment [facility] Rad Onc [address] [place] [address] Adriano Calvillo MD [address] [place] [address] 0[address]32 [email or web address] 11/10/2025 1:00 PM EST Treatment [facility] Rad Onc [address] [place] [address] Adriano Calvillo MD [address] [place] [address] [phone] [email or web address] 11/11/2025 1:00 PM EST Treatment [facility] Rad Onc [address] [place] [address]56 Adriano Calvillo MD [address] [place] [address] 85105 [email or web address] 11/12/2025 1:00 PM EST Treatment [facility] Rad Onc [address] [place] [address] 96748 Adriano Calvillo MD [address] [place] [address] 20064 [email or web address] 11/13/2025 1:00 PM EST Treatment [facility] Rad Onc [address] [place] [address] 22413 Adriano Calvillo MD [address] [place] [address] 61314 [email or web address] 11/14/2025 1:00 PM EST Treatment [facility] Rad Onc [address] [place] [address] 38435 Adriano Calvillo MD [address] [place] [address] 56744 [email or web address] 11/17/2025 1:00 PM EST Treatment [facility] Rad Onc [address] [place] [address] Adriano Calvillo MD [address] [place] [address] 60568 [email or web address] 11/18/2025 1:00 PM EST Treatment [facility] Rad Onc [address] [place] [address] Adriano Calvillo MD [address] [place] [address] [phone] [email or web address] 11/19/2025 10:10 AM EST Blood Draw [facility]le[facility] Services [address] [place] [address] Edwin Mccormack MD [address] [place] [phone] [email or web address] 11/19/2025 11:00 AM EST Office Visit [facility] at [address] [address] Edwin Mccormack MD [address] [place] [phone] [email or web address] 11/19/2025 1:00 PM EST Treatment [facility] Rad Onc [address] [place] [address] Adriano Calvillo MD [address] [place] [address] [phone] [email or web address] 11/20/2025 1:00 PM EST Treatment [facility] Rad Onc [address] [place] [address] Adriano Calvillo MD [address] [place] [address] [phone] [email or web address] 11/21/2025 1:00 PM EST Treatment [facility] Rad Onc [address] [place] [address] Adriano Calvillo MD [address] [place] [address] [email or web address] 11/24/2025 1:00 PM EST Treatment [facility] Rad Onc [address] [place] [address] Adriano Calvillo MD [address] [place] [address]69 [email or web address] 11/25/2025 1:00 PM EST Treatment [facility] Rad Onc [address] [place] [address] Adriano Calvillo MD [address] [place] [address] 09146 [email or web address] documented as of this encounter Visit Diagnoses Not on filedocumented in this encounter Care Teams Supervisor Audit Clerks Relationship Specialty Start Date End Date Phani Ruggiero MD [address] [place] [address] PCP - General Internal Medicine 05/30/25 Self-Referred, Patient Referring Physician 05/30/25 Ozzy Hernandez MD [address] [place] [address] [address] [place] [address] [email or web address] Referring Physician Urology 06/02/25 Edwin Mccormack MD [address] [place] [phone] [email or web address] Medical Oncology 06/02/25 Justen Taylor MD [address] [place] [address] [email or web address] [email or web address] Oncology 07/01/25 documented as of this encounter Additional Source Comments The information contained in this document represents components of the legal health record. It is not the complete legal health record.[facility]
--- OUTSIDE RECORDS SUMMARY | 2025-08-25 12:24 | XMS_ITS ---
Author Organization [facility] Address [address] [place] [address] Phone Care Team Providers Care Proofer Black And White Name Role Phone Phani Ruggiero MD Primary [...]
--- OUTSIDE RECORDS SUMMARY | 2025-08-25 12:25 | XMS_ITS | Encounter Summary ---
Author Organization [facility] Address [address] [place] [address] Care Team Providers Care Caustic Operator Name Role Phone Phani Adams MD Primary Care Provider [phone] Encounter Details Date Type Department Care Team ([facility] st Contact Info) Description 08/19/2025 Results Follow-Up Gastroenterology - [address] [phone] Jean Osuna MD [address] [address] Social History Tobacco Use Types Packs/Day Years Used Date Smoking Tobacco: Never Smokeless Tobacco: Never Alcohol Use Standard Drinks/Week Comments Not Currently 0 (1 standard drink = 0.6 oz pur e alcohol) Interpersonal Safety Answer Date Record ed Physical Abuse Unrecognized value 08/14/2025 Verbal Abuse Unrecognized value 08/14/2025 Sex and Gender Information Value Date Recorded Sex Assigned at Not on file Legal Sex Male 2:47 AM EST Gender Identity Not on file Sexual Orientation Not on file documented as of this encounter Plan of Treatment Not on file documented as of this encounter Goals Goal Patient Goal Type Associated Problems Recent Progress Patient-Stated? Author Autogenerat ed Goal Care Plan Autogenerated Problem No Booker Mckeon documented as of this encounter Visit Diagnoses Not on filedocumented in this encounter Additional Health Concerns Active Problems Noted Date Diagnosed Date Autogenerated Problem 08/12/2025 documented as of this encounter Care Teams Caustic Operator Relationship Specialty Start Date End Date Phani Adams MD [address] [place] [address] PCP - General Inter Com Installer 06/05/17 documented as of this encounter
--- OUTSIDE RECORDS SUMMARY | 2025-08-25 12:25 | XMS_ITS ---
Author Name [facility] Organization Unknown History of Medication Use Medication Directions Dispensed Refills Start Date End Date Stat Kenalog 40 mg/mL suspension for injection Take 1 mL by injection route. 06/02/2023 active lidocaine (PF) 10 mg/mL (1 %) injection solution Take 2 mL by injection route. 06/02/2023 active amlodipine 10 mg tablet active amlodipine 5 mg tablet a ctive azithromycin 250 mg tablet TAKE 2 TABLETS BY MOUTH TODAY, THEN TAKE 1 TABLET DAILY FOR 4 DAYS active benzonatate 200 mg capsule TAKE 1 CAPSULE BY MOUTH 3 TIMES A DAY active ciprofloxacin 0.3 %-dexamethasone 0.1 % ear drops,suspension PUT 5 DROPS IN BOTH EARS ONCE DAILY active clarithromycin 500 mg tablet TAKE 1 TABLET BY MOUTH TWICE A DAY active clindamycin HCl 300 mg capsule TAKE 2 CAPSULES BY MOUTH ONE HOUR PRIOR TO DENTAL WORK active clonidine HCl 0.1 mg tablet TAKE 1 TABLET BY MOUTH EVERY DAY FOR 30 DAYS active clotrimazole 1 % topical solution INSTILL 4 DROPS TO AFFECTED EAR 2 TIMES A DAY X 14 DAYS. ALTERNATE WITH ANTIBIOTIC DROP. active doxycycline hyclate 100 mg tablet TAKE 1 TABLET BY MOUTH 2 TIMES PER DAY FOR 7 DAYS LIMITS ON SUN EXPOSURE WHILE ON THIS ANTIBIOTIC active econazole 1 % topical cream APPLY TO AFFECTED AREA TWICE A DAY FOR 2 WEEKS active esomeprazole magnesium 40 mg capsule,delayed release active gabapentin 100 mg capsule TAKE 1 TO 3 CAPSULES BY MOUTH AT BEDTIME active hydralazine 25 mg tablet TAKE 1 TABLET BY MOUTH TWICE A DAY WITH FOOD active lisinopril 20 mg-hydrochlorothiazide 12.5 mg tablet TAKE 2 TABLETS BY MOUTH EVERY DAY active metoprolol succinate ER 50 mg tablet,extended release 24 hr TAKE 1 TABLET BY MOUTH EVERY DAY FOR 90 DAYS active Paxlovid 300 mg (150 mg x 2)-100 mg tablets in a dose pack TAKE 3 TABLETS DIRECTED TWICE A DAY FOR 5 DAYS active prazosin 1 mg capsule TAKE 2 CAPSULES BY MOUTH EVERY DAY active prazosin 5 mg capsule TAKE 2 CAPSULES BY MOUTH EVERY DAY active prednisone 10 mg tablet TAKE 1 TABLET BY MOUTH TWICE A DAY active prednisone 20 mg tablet TAKE 1 TABLET BY MOUTH TWICE A DAY FOR 5 DAYS active spironolactone 25 mg tablet TAKE 1 TABLET BY MOUTH EVERY DAY active tadalafil 20 mg tablet a ctive tobramycin 0.3 %-dexamethasone 0.1 % eye drops,suspension INSTILL 4 DROPS IN THE RIGHT EAR TWICE A DAY FOR 14 DAYS active triamcinolone acetonide 0.1 % topical cream APPLY 1 APPLICATION EXTERNALLY TWICE A DAY NEEDED active valacyclovir 1 gram tablet active Allergies Allergen Reaction Severity Comment Documented Date Source Statu s P[place] [facility] Problems Problem Status Onset Date Problem Type Date of Resoluti on Source Subacromial bursitis of left shoulder active 2023-06-02 ProblemAct [facility] Chronic pain following right total knee arthroplasty active 2023-06-01 ProblemAct [facility] Encounters Encounter Type Encounter Reason Primary Diagnosis Location Date Ambulatory [facility] 09/15/2023 Ambulatory [facility] 08/11/2023 Ambulatory [facility] 07[facility]10/2023 Ambulatory [facility] 07/07/2023 Ambulatory [facility] 06/01/2023 Ambulatory [facility] 06/01/2023 Ambulatory [facility] 06/01/2023 Ambulatory [facility] 05/30/2023 Ambulatory [facility] 12/21/2022
--- OUTSIDE RECORDS SUMMARY | 2025-08-25 12:25 | XMS_ITS | Clinical Summary ---
Author Organization [facility] Address [address] [place] [address] Care Team Providers Care Fight Manager Name Role Phone Phani Ruggiero MD Primary Care Provider [phone] Allergies Active Allergy Reactions Criticality Noted Date [...] age to complete this topic Care Teams Fight Manager Relationship Specialty Start Date End Date Phani Ruggiero MD [address] [place] [phone] PCP - General Shoveler 06/05/17
--- OUTSIDE RECORDS SUMMARY | 2025-08-25 12:25 | XMS_ITS | Encounter Summary ---
Author Organization [facility] [address] Address [address] [place] [address] Care Team Providers Care Pattern Data Operator Name Role Phone Phani Adams MD Primary Care Provider [phone] Encounter Details Date Type Department Care Team (Late st Contact Info) Description 05/19/[address] [facility] - Main Lab [address] [facility] [place] [id number] Ozzy Hernandez MD [address] [facility] [address] [place] [address] Benign prostatic hyperplasia without lower [...] on file documented as of this encounter Procedures Procedure Name Priority Date/Time Associated Diagnosis Comments TISSUE EXAM Routine 05/16/2025 Benign prostatic hyperplasia without lower urinary tract symptoms documented in this encounter Results * Tissue Exam (05/16/2025) Final Diagnosis A. Prostate, Left Middle Hedrick (Core Biopsy): - BENIGN PROSTATE TISSUE. B. 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 Prostate, Right Middle [place] (Core Biopsy): - BENIGN PROSTATE TISSUE. H. Prostate, Right Lateral [place] (Core Biopsy): -PROSTATIC ACINAR ADENOCARCINOMA, CONVENTIONAL (USUAL) TYPE -[place] score (5+3)=8, Grade group 4 Total Number of Cores: 1 Number of Positive Cores: 1 Percentage of Prostatic Tissue Continuously Involved by Tumor: 10% I. Prostate, Right Middle Middle (Core Biopsy): - BENIGN PROSTATE TISSUE. J. Prostate, Right Lateral Middle (Core Biopsy): - BENIGN PROSTATE TISSUE. K. Prostate, Right Middle Base (Core Biopsy): -PROSTATIC ACINAR ADENOCARCINOMA, CONVENTIONAL (USUAL) TYPE -[place] score (4+5)=9, Grade group 5 Total Number [...] by Tumor: 90% 05/22/2025 12:38 PM EDT [facility] at 1238 EDT Clinical Information Elevated PSA N40.0 PSA: 7.5 (03/01/25) [id number] 05/22/2025 12:38 PM EDT [facility] Gross Description A. Prostate, Left Middle [place]rick Biopsy: Received, properly labeled, are two H and E stained slides and two unstained slides. B. Prostate, Left Lateral Hedrick Biopsy: Received, properly labeled, are two H [...] two unstained slides. G. Prostate, Right Middle [place] Biopsy: Received, properly labeled, are two H and E stained slides and two unstained slides. H. Prostate, Right Lateral [place] Biopsy: Received, properly labeled, are two H [...] two unstained slides. /al 05/22/2025 12:38 PM T [facility] Disclaimer Unless otherwise specified, all tissue is 10% NB formalin fixed and paraffin embedded. Technical pathology services provided by [facility] at [address], [place] [address] (CLIA #[id number]/Rona Waldrop MD, Aircraft Line Assembler) 05/22/2025 12:38 PM EDT [facility] Tissue Prostate / Unknown 05/16/20252024 [...] Hernandez MD LAB PATHOLOGY ORDERABLES Final Result [facility] [address] [place] [address], documented in this encounter Visit Diagnoses Diagnosis Benign prostatic hyperplasia without lower urinary tract symptoms documented in this encounter Care Teams Pattern Data Operator Relationship Specialty Start Date End Date Phani Adams MD [address] [place] [address] PCP - General Equipment Coordinator 06/05/17 documented as of this encounter
--- OUTSIDE RECORDS SUMMARY | 2025-08-25 12:25 | XMS_ITS | Clinical Summary ---
Author Organization [facility] Address [address] [facility] [address] [place] [phone] Phone Care Team Providers Care Blackjack Supervisor Name Role Phone Phani Ruggiero MD Primary Care Provider Self-Referred, Patient Unavailable Unavailab Ozzy Gurrola MD Unavailable Edwin Mccormack MD Unavailable Justen Taylor MD Unavailable Allergies Active Allergy Reactions Criticality Noted Date Comments Cyclobenzaprine 06/10/2025 Oxybutynin 06/10/2025 Penicillins Rash,Hives,Unknown Low 11/08/2017 Medications amLODIPine (NORVASC) 10 MG tablet Take 10 mg by mouth daily. Active spironolactone (ALDACTONE) 25 MG tablet Take 25 mg by mouth daily. Active lisinopril-hyd roCHLOROthiazi de (PRINZIDE,ZEST ORETIC) 20-12.5 mg per tablet Take 2 tablets by mouth daily. Active cholecalcifero l (VITAMIN D3) 5,000 unit tablet Take 1,000 Units by mouth. Active apalutamide (ERLEADA) 240 mg tabletIndicati ons:Malignant neoplasm of prostate Take 1 tablet (240 mg total) by mouth daily. Follow instructions given by provider. 30 tablet 11 07/10/20 25 Active pantoprazole (PROTONIX) 20 MG tabletIndicati ons:Gastroesop hageal reflux disease without esophagitis Take 1 tablet (20 mg total) by mouth daily. 30 tablet 11 07/14/20 Active leuprolide acetate (LUPRON DEPOT, 6 MONTH, IM) Inject into the muscle. Active aspirin 81 MG EC tablet Take 81 mg by mouth daily. Active valACYclovir (VALTREX) 1000 MG tablet Take 1,000 mg by mouth as directed. As needed for cold sores. 2024 Discontinued(N o CancelRX) triamcinolone acetonide 0.1 % cream Apply topically 2 (two) times a day. 2024 Discontinued(N o CancelRX) tadalafiL (CIALIS) 20 MG tablet Take 20 mg by mouth. 2024 Discontinued(N o CancelRX) metoprolol succinate (TOPROL-XL) 50 MG 24 hr tablet Take 50 mg by mouth daily. 2024 Discontinued ibuprofen (ADVIL,MOTRIN) 800 MG tablet Take 800 mg by mouth every 6 (six) hours as needed. 2024 Discontinued clindamycin (CLEOCIN) 300 MG capsule Take 300 mg by mouth as directed. Take prior to dental procedures. 2024 Discontinued(N o longer taking) tamsulosin (FLOMAX) 0.4 mg CapIndications :Prostate cancer Take 1 capsule (0.4 mg total) by mouth daily. Take separately from blood pressure medicines by at least 4 hours. 30 capsule 3 06/12/20 25 2024 Discontinued(N o CancelRX) ciprofloxacin HCl (CIPRO) 500 MG tablet Take 1 tablet (500 mg total) by mouth 2 (two) times a day for 1 day. 2 tablet 08/20/202024 Discontinued(S top Taking at Discharge) Active Problems Problem Noted Date Diagnosed Date Malignant neoplasm of prostate 07/10/2025 Encounters Date Type Department Care Team Description 08/21/2025 11:56 AM EST Anesthesia Event OR Admitting Dept - Virtual Department [address] [place] [phone] Ricki Johnson MD 08/21/2025 11:30 AM EST - 08/21/2025 12:41 PM EST Surgery OR Admitting Dept - Virtual Department [address] [place] [phone] Adriano Calvillo MD TRANSPERINEAL INSERTION FIDUCIAL MARKERS PROSTATE GLAND 08/21/2025 9:55 AM EST - 08/21/2025 1:30 PM EST Hospital Encounter OR Admitting Dept - Virtual Department [address] [place] [address] Adriano Calvillo MD Discharge Disposition: Home or Self Care 08/21/2025 Procedure Pass OR Admitting Dept - Virtual Department [address] [place] [address] 08/20/2025 10:30 AM EST Office Visit [facility] at [address] [address] Edwin Mccormack MD Malignant neoplasm of prostate (Primary Dx) 08/20/2025 8:30 AM EST Pre-Admission Testing Pre Procedure Evaluation [address] [place] [address] Adriano Calvillo MD 08/20/2025 Orders Only [facility] at [address] [address] Edwin Mccormack MD Gastroesophageal reflux disease without esophagitis (Primary Dx) 08/19/2025 Orders Only [facility] at [facility] [address] [place] [address] Gem Davison CGC Malignant neoplasm of prostate (Primary Dx) 08/12/2025 Telephone [facility] at [address] [address] Jacy Morris med question 08/06/2025 Telephone [facility] and [facility] [place] at [address] [address] Edwin Mccormack MD 08/05/2025 Telephone [facility] and [facility] Center at [address] [address] Jacy Morris med question; Care Coordination 07/31/2025 Orders Only [facility] At [facility] Rad Onc [address] [place] [address] Pamella Guillen, MICHELLE 07/25/2025 Telephone [facility] at [address] [address] Edwin Mccormack MD Ksenia- questions; Care Coordination 07/24/2025 12:00 PM EDT Telemedicine - audio only [facility] at [facility] [address] [place] [phone] Edwin Mccormack MD Leach, Melissa, CGC Malignant neoplasm of prostate (Primary Dx) 07/23/2025 9:00 AM EDT Office Visit [facility] At [facility] Rad Onc [address] [place] [address] Adriano Calvillo MD Malignant neoplasm of prostate (Primary Dx) 07/16/2025 Telephone [facility] at [address] [address] Alexandra Harris, MICHELLE Oral Chemotherapy Compliance; Care Coordination 07/16/[address] [address] Jenni Polanco, PharmD Chemo Teaching ([facility]) 07/14/2025 Telephone [facility] at [address] [address] Edwin Mccormack MD 07/11/2025 Orders Only [facility] and [facility] Center at [address] [address] Edwin Mccormack MD 07/10/2025 2:30 PM EDT Office Visit [facility] at [address] [address] Edwin Mccormack MD Malignant neoplasm of prostate (Primary Dx) 07/10/2025 Orders Only [facility] and [facility] at [address] [address] Edwin Mccormack MD Malignant neoplasm of prostate (Primary Dx) 07/08/2025 9:30 AM EDT Office Visit [facility] Department of Radiation Oncology, At [address] [address] Justen Taylor MD Prostate cancer (Primary Dx) 07/08/2025 Orders Only [facility] at [address] [address] Kia Fong MD 07/08/2025 Telephone [facility] at [address] [address] Edwin Mccormack MD 07/07/2025 Telephone [facility] at [address] [address] Jacy Morris call for Alexandra; Care Coordination 07/03/2025 Telephone [facility] at [address] [address] Vy Tang; Care Coordination 07/01/2025 Orders Only [facility] Department of Radiation Oncology, At [address] [address] Justen Taylor MD Prostate cancer (Primary Dx) 06/26/2025 Telephone [facility] at [address] [address] Alexandra Harris, MICHELLE Care Coordination 06/25/2025 Telephone [facility] at [address] [address] Vy Tang; Care Coordination 06/23/2025 Telephone [facility] at [address] [address] Edwin Mccormack MD 06/12/2025 2:00 PM EDT Office Visit [facility] at [address] [address] Edwin Mccormack MD Prostate cancer (Primary Dx); Malignant neoplasm of prostate 06/12/2025 Orders Only [facility] at [address] [address] Edwin Mccormack MD Prostate cancer (Primary Dx) 06/12/2025 Ancillary Orders DF IMG OUTSIDE IMG [address] [place] [address] Edwin Mccormack MD 06/12/2025 Ancillary Orders DF IMG OUTSIDE IMG [address] [place] [address] Edwin Mccormack MD 06/11/2025 Telephone [facility] at [address] [address] Vy Tang 06/10/2025 11:00 AM EDT Nurse Only [address] [address] Edwin Mccormack MD Macleod, Stacey J., RN 06/06/2025 Ancillary Procedure DF IMG OUTSIDE IMG [address] [place] [address] Edwin Mccormack MD 06/05/2025 11:57 AM EDT - 06/05/2025 11:59 PM EDT Hospital Encounter [facility], [facility] [place] [address] [place] [address] Discharge Disposition: Home or Self Care 06/02/2025 Orders Only [facility] [address] [address] Leann Avila Prostate cancer (Primary Dx) 05/30/2025 Orders Only [facility] [address] [address] Leann Avila from Last 3 Months Family [...] Mass Index 32.08 08/21/2025 10:15 AM EST Plan of Treatment Upcoming Encounters Date Type Department Care Team (Late st Contact Info) Description 09/10/2025 1:00 PM EST Office Visit [facility] At [facility] Rad Onc [address] [place] [address] Adriano Calvillo MD [address] [place] [phone] DAVION@[email or web address] 09/29/2025 1:00 PM EST Treatment [facility] At [facility] Rad Onc [address] [place] [address] Adriano Calvillo MD [address] [place] [address] DAVION@[facility] 09/30/2025 1:00 PM EST Treatment [facility] At [facility] Rad Onc [address] [place] [address] Adriano Calvillo MD [address] [place] [address] [email or web address] 10/01/2025 1:00 PM EST Treatment [facility] Rad Onc [address] [place] [address] Adriano Calvillo MD [address] [place] [address] [email or web address] 10/02/2025 1:00 PM EST Treatment [facility] Rad Onc [address] [place] [address] Adriano Calvillo MD [address] [place] [address] [email or web address] 10/03/2025 1:00 PM EST Treatment [facility] At [facility] Rad Onc [address] [place] [address] Adriano Calvillo MD [address] [place] [address] [email or web address]@[facility] 10/06/2025 1:00 PM EST Treatment [facility] Rad Onc [address] [place] [address] Adriano Calvillo MD [address] [place] [address] DAVION@[facility] 10/07/2025 1:00 PM EST Treatment [facility] Onc [address] [place] [address] Adriano Calvillo MD [address] [place] [address] [email or web address] 10/08/2025 1:00 PM EST Treatment [facility] At [facility] Rad Onc [address] [place] [address] Adriano Calvillo MD [address] [place] [address] [email or web address] 10/10/2025 1:00 PM EST Treatment [facility] At [facility] Rad Onc [address] [place] [address] Adriano Calvillo MD [address] [place] [phone] [email or web address] 10/13/2025 1:00 PM EST Treatment [facility] Rad Onc [address] [place] [address] Adriano Calvillo MD [address] [place] [address] [email or web address]@[facility] 10/14/2025 1:00 PM EST Treatment [facility] Rad Onc [address] [place] [address] Adriano Calvillo MD [address] [place] [address] [email or web address] 10/15/2025 1:00 PM EST Treatment [facility] Rad Onc [address] [place] [address] Adriano Calvillo MD [address] [place] [address] [email or web address]@[facility] 10/17/2025 1:00 PM EST Treatment [facility] Rad Onc [address] [place] [address] Adriano Calvillo MD [address] [place] [address] DAVION@[facility] 10/20/2025 1:00 PM EST Treatment [facility] Rad Onc [address] [place] [address] Adriano Calvillo MD [address] [place] [address] DAVION@[facility] 10/21/2025 1:00 PM EST Treatment [facility] At [facility] Rad Onc [address] [place] [address] Adriano Calvillo MD [address] [place] [address] [email or web address] 10/22/2025 1:00 PM EST Treatment [facility] Rad Onc [address] [place] [address] Adriano Calvillo MD [address] [place] [address] DAVION@[facility] 10/23/2025 1:00 PM EST Treatment [facility] Rad Onc [address] [place] [address] Adriano Calvillo MD [address] [place] [address] DAVION@[facility] 10/24/2025 1:00 PM EST Treatment [facility] Rad Onc [address] [place] [address] Adriano Calvillo MD [address] [place] [address] DAVION@[facility] 10/27/2025 1:00 PM EST Treatment [facility] Rad Onc [address] [place] [address] Adriano Calvillo MD [address] [place] [address] DAVION@[facility] 10/28/2025 1:00 PM EST Treatment [facility] Rad Onc [address] [place] [address] Adriano Calvillo MD [address] [place] [address] DAVION@[facility] 10/29/2025 1:00 PM EST Treatment [facility] Rad Onc [address] [place] [address] Adriano Calvillo MD [address] [place] [address] DAVION@[facility] 10/30/2025 1:00 PM EST Treatment [facility] Rad Onc [address] [place] [address] Adriano Calvillo MD [address] [place] [address] DAVION@[facility] 10/31/2025 1:00 PM EST Treatment [facility] Rad Onc [address] [place] [address] Adriano Calvillo MD [address] [place] [address] DAVION@[facility] 11/04/2025 1:00 PM EST Treatment [facility] Rad Onc [address] [place] [address] Adriano Calvillo MD [address] [place] [address] DAVION@[facility] 11/05/2025 1:00 PM EST Treatment [facility] Rad Onc [address] [place] [address] Adriano Calvillo MD [address] [place] [address] [email or web address] 11/06/2025 1:00 PM EST Treatment [facility] Rad Onc [address] [place] [address] Adriano Calvillo MD [address] [place] [address] [email or web address] 11/07/2025 1:00 PM EST Treatment [facility] Rad Onc [address] [place] [address] Adriano Calvillo MD [address] [place] [address] [email or web address] 11/10/2025 1:00 PM EST Treatment [facility] Rad Onc [address] [place] [address] Adriano Calvillo MD [address] [place] [address] DAVION@[facility] 11/11/2025 1:00 PM EST Treatment [facility] Rad Onc [address] [place] [address] Adriano Calvillo MD [address] [place] [phone] [email or web address] 11/12/2025 1:00 PM EST Treatment [facility] Rad Onc [address] [place] [address] Adriano Calvillo MD [address] [place] [address] [email or web address] 11/13/2025 1:00 PM EST Treatment [facility] Rad Onc [address] [place] [address] Adriano Calvillo MD [address] [place] [address] [email or web address] 11/14/2025 1:00 PM EST Treatment [facility] Rad Onc [address] [place] [address] Adriano Calvillo MD [address] [place] [address] [email or web address] 11/17/2025 1:00 PM EST Treatment [facility] At [address] [address] Adriano Calvillo MD [address] [place] [address] [email or web address] 11/18/2025 1:00 PM EST Treatment [facility] Rad Onc [address] [place] [address] Adriano Calvillo MD [address] [place] [address] DAVION@[email or web address] 11/19/2025 10:10 AM EST Blood Draw DF/[facility] at [facility], Phlebotomy Services [address] [address] Edwin Mccormack MD [address] [place] [phone] [email or web address] 11/19/2025 11:00 AM EST Office Visit [facility] at [address] [address] Edwin Mccormack MD [address] [place] [phone] [email or web address] 11/19/2025 1:00 PM EST Treatment [facility] Rad Onc [address] [place] [address] Adriano Calvillo MD [address] [place] [address] DAVION@[facility] 11/20/2025 1:00 PM EST Treatment [facility] Rad Onc [address] [place] [address] Adriano Calvillo MD [address] [place] [address] DAVION@[email or web address] 11/21/2025 1:00 PM EST Treatment [facility] Rad Onc [address] [place] [address] Adriano Calvillo MD [address] [place] [address] DAVION@[email or web address] 11/24/2025 1:00 PM EST Treatment [facility] Rad Onc [address] [place] [address] Adriano Calvillo MD [address] [place] [phone] [email or web address] 11/25/2025 1:00 PM EST Treatment [facility] Rad Onc [address] [place] [address] Adriano Calvillo MD [address] [place] [address] [email or web address] Health Maintenance Due Date Last Done Comments Adult Td,Tdap Booster 1953 LIPID PANEL 1953 DEPRESSION SCREENING 1965 HEPATITIS C SCREENING 1971 PNEUMOCOCCAL VACCINES (50+ years) (1 of 2 - PCV) 1972 COLONOSCOPY 1998 FIT TEST 1998 FOBT 1998 SIGMOIDOSCOPY 1998 VIRTUAL COLONOSCOPY 1998 RSV VACCINE (1 - Risk 50-74 years 1-dose series) 2003 ZOSTER VACCINES (1 of 2) 2015 10/06/2015 INFLUENZA VACCINE (#1) 2025 08/30/2022 COVID-19 VACCINE (4 - 2024-2 6 season) 2025 08/30/2022, 12/04/2020, 11/06/2020 COLOGUARD 08/30/2025 08/30/2022 COLORECTAL CANCER SCREENING 08/30/2025 CREATININE LEVEL 08/20/2026 08/20/2025, 07/10/2025 POTASSIUM LEVEL 08/20/2026 08/20/2025, 07/10/2025 SMOKING STATUS SCREENING (On ce After 26 Yrs) Completed 08/21/2025 HEPATITIS A VACCINES Aged Out No long er eligible based on patient's age to complete this topic HIB VACCINES Aged Out No longer eligi ble based on patient's age to complete this topic IPV VACCINES Aged Out No longer eligi ble based on patient's age to complete this topic MENINGOCOCCAL VACCINES (ACWY) Aged Out No longer eligible based on patient's age to complete this topic MENINGOCOCCAL VACCINES (B) Aged Out N o longer eligible based on patient's age to complete this topic Goals Goal Patient Goal Type Associated Problems Recent Progress Patient-Stated? Author Autogenerat ed Goal Care Plan Autogenerated Problem No Optime, Admin Medical Devices Implanted Type Area Photo Cartographer Device Identifier Shelf Expiration Date Model / Serial / Lot Mesh Mesh Prosthetic Joint Prosthetic Joint Right: Knee Marker Fiducial Preloaded Visicoil Mr - [id number] Implanted:Qty : 1 on 08/21/2025 by Adriano Calvillo MD at [facility] N/A: Perineal [employer] 02/24/2029 [id number] 10-PL / / [id number] Marker Fiducial Preloaded Visicoil Mr - [id number] Implanted:Qty : 1 on 08/21/2025 by Adriano Calvillo MD at [facility] N/A: Perineal [employer] 02/24/2029 [id number] 10-PL / / [id number] Procedures Procedure Name Priority Date/Time Associated Diagnosis Comments AIRWAY PLACEMENT Routine 08/21/2025 12:0 [address] [place] [address] RADIOTHER DEVICE/MARKER, PROSTATE 08/21/2025 11:56 AM EST PROSTATE CANCER PSA (SCREENING) Routine 08/20/2025 11:02 AM EST Malignant neoplasm of prostate CBC Routine 08/20/2025 11:02 AM EST Malignant neoplasm of prostate TESTOSTERONE, TOTAL Routine 08/20/2025 1 1:02 AM EST Malignant neoplasm of prostate COMPREHENSIVE METABOLIC PANEL (CMP) Routine 08/20/2025 11:02 AM EST Malignant neoplasm of prostate OUTSIDE LAB 08/20/2025 OUTSIDE LAB 08/20/2025 PSA Routine 07/10/2025 12:49 PM EDT Prostate cancer TESTOSTERONE, TOTAL Routine 07/10/2025 1 2:49 PM EDT Prostate cancer COMPREHENSIVE METABOLIC PANEL (CMP) Routine 07/10/2025 12:49 PM EDT Prostate cancer [...] 06/06/2025 12:00 AM EDT OUTSIDE PATHOLOGY 05/29/2025 from Last 3 Months Results * ANES ETT DOUBLE LUMEN - [...] no Complications observed? no Ricki Johnson MD [place] ANESTHESIA Final Result * Comprehensive Metabolic Panel (CMP) (08/20/2025 11:02 AM EST) Only the most recent of2 resultswithin the time period is included. Sodium 142 136 - 145 mmol/L [facility] Potassium 4.1 3.5 - 5.1 mmol/L [facility] Chloride 105 98 - 107 mmol/L [facility] Carbon Dioxide 29 20 - 31 mmol/L [facility] Anion Gap 8 5 - 15 mmol/L [facility] Glucose Random 100 74 - 106 mg/dL [facility] Blood Urea Nitrogen 19 9 - 23 mg/dL [facility] Serum Creatinine 1.15 0.70 - 1.30 mg/dL [facility] Glomerular Filtration Rate Est 68 >60 [facility] Comment: Units - mL/min/1.73 msq CKD-EPI Creatinine Equation (2020) used as recommended by The National [facility]. Start date (11/22/22). Calcium 9.5 8.7 - 10.4 mg/dL [facility] Total Protein 7.8 5.7 - 8.2 g/dL [facility] Albumin Level 4.6 3.2 - 4.8 g/dL [facility] Globulin 3.0 2.0 - 3.5 g/dL [facility] Alkaline Phosphatase 111 46 - 116 U/L [facility] ALT 30 7 - 40 U/L [facility] AST 31 13 - 40 U/L [facility] Bilirubin Total 0.6 0.3 - 1.2 mg/dL [facility] 08/20/2025 11:0 2 AM EST us Edwin Mccormack MD LAB BLOOD BKR ORDERAB LES Final Result [facility] [address] [place] [address], [facility] [phone] * (ABNORMAL) CBC (08/20/2025 11:02 AM EST) WBC 6.3 4.0 - 11.0 10*3/uL [facility] RBC 4.54 4.2 - 6.0 10*6/uL [facility] HGB 14.5 13.0 - 18.0 g/dL [facility] HCT 39.2 39.0 - 54.0 % [facility] MCV 86.3 80.0 - 96.0 fL [facility] MCH 31.9(H) 27.0 - 31.0 pg [facility] MCHC 37.0(H) 32.0 - 36.0 g/dL [facility] RDW-CV 11.9(L) 12.8 - 18.4 % [facility] PLT 214 140 - 400 10*3/uL [facility] MPV 10.6 8.0 - 12.0 fL [facility] NRBC Pct Auto 0.0 0.0 - 0.2 % [facility] NRBC Abs Auto 0.00 0.000 - 0.012 10*3/uL [facility] 08/20/2025 11:0 2 AM EST Edwin Mccormack MD LAB BLOOD BKR ORDERAB LES Final Result Performing Organization Address City/[facility]/ZIP Co de Phone Number [facility] [address] [phone] * (ABNORMAL) Testosterone, Total (08/20/2025 11:02 AM EST) Only the most recent of2 resultswithin the time period is included. Testosterone Total 11(L) 188 - 684 ng/dL [facility] Comment:Correction in Refere nce Range 19 November 2024 08/20/2025 11:0 2 AM EST Edwin Mccormack MD LAB BLOOD BKR ORDERAB LES Final Result Performing Organization Address City/[facility]/ZIP Co de Phone Number [facility] [address] [phone] * Prostate Specific Antigen (PSA), Screen (08/20/2025 11:02 AM EST) Prostate Specific Antigen Scrn 0.25 <0.04 - 4.0 ng/mL [facility] Comment: Assay performed on the Lavaboom utilizing direct chemiluminescent methodology. Patient results determined [...] this range should be interpreted with caution. 08/20/2025 11:0 2 AM EST us Edwin Mccormack MD LAB BLOOD BKR ORDERAB LES Final Result Performing Organization Address [facility] Co de Phone Number [address] [address], [facility] [phone] * Outside Lab (Non-MGB) (08/20/2025) Only the most recent of2 resultswithin the time period is included. us Scanning Interface Provider LAB BLOOD BKR ORDERA BLES Final Result * (ABNORMAL) PSA (07/10/2025 12:49 PM EDT) Only the most recent of2 resultswithin the time period is included. Prostate Specific Antigen 12.37(H) <0.04 - 4.0 ng/mL [facility] Comment: Assay performed on the Lavaboom utilizing direct chemiluminescent methodology. Patient results determined [...] 07/10/2025 12:4 9 PM EDT us Edwin Mccormack MD LAB BLOOD ORDERABLES Final Result Performing Organization Address [facility]/ZIP Co de Phone Number [address] [address], [facility] [phone] * (ABNORMAL) CBC and differential (07/10/2025 12:49 PM EDT) WBC 8.1 4.0 - 11.0 10*3/uL [facility] RBC 4.37 4.2 - 6.0 10*6/uL [facility] HGB 14.2 13.0 - 18.0 g/dL [facility] HCT 39.7 39.0 - 54.0 % [facility] MCV 90.8 80.0 - 96.0 fL [facility] MCH 32.5(H) 27.0 - 31.0 pg [facility] MCHC 35.8 32.0 - 36.0 g/dL [facility] RDW-CV 11.9(L) 12.8 - 18.4 % [facility] PLT 227 140 - 400 10*3/uL [facility] MPV 10.2 8.0 - 12.0 fL [facility] Neut Pct Auto 65.0 50 - 70 % [facility] Lymp Pct Auto 22.1(L) 25 - 45 % [facility] [place] Pct Auto 10.1 4 - 13 % [facility] Eos Pct Auto 2.0 0 - 5 % [facility] Baso Pct Auto 0.6 0 - 2 % [facility] I.G. Pct Auto 0.2 0.0 - 0.5 % [facility] NRBC Pct Auto 0.0 0.0 - 0.2 % [facility] Neut Abs Auto 5.2(H) 2.2 - 4.8 10*3/uL [facility] Lymph Abs Auto 1.8 1.3 - 2.9 10*3/uL [facility] [place] Abs Auto 0.81(H) 0.3 - 0.8 10*3/uL [facility] Eos Abs Auto 0.2 0.0 - 0.2 10*3/uL [facility] Baso Abs Auto 0.1 0.0 - 0.1 10*3/uL [facility] I.G. Abs Auto 0.02 0.00 - 0.08 10*3/uL [facility] NRBC Abs Auto 0.00 0.000 - 0.012 10*3/uL [facility] Blood 07/10/2025 12:4 9 PM EDT Edwin Mccormack MD LAB BLOOD BKR ORDERAB LES Final Result [facility] [address] [place] [address] [phone] * Outside MR Head/Neck Report Only (07/08/2025 12:26 PM EDT) Historical Provider MD FONTAINE MR HEAD/NECK Final Re sult * Outside MR Spine Report Only (07/08/2025 12:25 PM EDT) Historical Provider MD FONTAINE MR SPINE Final Res ult * Outside Imaging Report Only (07/04/2025) us Scanning Interface Provider IMG XR CHEST Danielle l Result * Outside MR Imaging Report Only (06/12/2025 3:42 PM EDT) Historical Provider MD FONTAINE MR Final Res ult * Outside Imaging Report Only (06/06/2025) us Scanning Interface Provider IMG XR CHEST Danielle l Result * NM PET Whole Body Outside (No Interpretation) (06/06/2025 12:00 AM EDT) Other Narrative KAYA - 06/12/2025 11:53 AM EDT This study is for PACS storage only and not for interpretation. us Edwin LEACHG OUTSIDE IMAGING W /OUT INTERPRETATION Final Result [facility] * Outside Pathology (05/29/2025) us Scanning Interface Provider PATHOLOGY ORDERABLES Final Result from Last 3 Months Additional Health Concerns Active Problems Noted Date Diagnosed Date Autogenerated Problem 08/21/2025 Insurance MEDICARE PART A & B [facility] MEDICARE SUPPLEMENT MEDICARE PART A & B [facility] MEDICARE SUPPLEMENT MEDICARE PART A & B [facility] MEDICARE SUPPLEMENT MEDICARE PART A & B [facility] MEDICARE SUPPLEMENT MEDICARE PART A & B [facility] MEDICARE SUPPLEMENT MEDICARE PART A & B [facility] MEDICARE SUPPLEMENT Advance Directives For more information, please contact: [phone] (9AM - 5PM [place], Monday-[place]) * Full Code (Latest Code Status on File) Date Activated Date Inactivated Comments 08/21/2025 11:03 AM Question Answer Comments Code Status Confirmed With: Patient Care Teams Blackjack Supervisor Relationship Specialty Start Date End Date Phani Ruggiero MD [address] [place] [address] [address] [place] [address] PCP - General Internal Medicine 05/30/25 Self-Referred, Patient Referring Physician 05/30/25 Ozzy Hernandez MD [address] [facility] [address] [place] [address] [email or web address] Referring Physician Urology 06/02/25 Edwin Mccormack MD [address] [place] [phone] [email or web address] Medical Oncology 06/02/25 Justen Taylor MD [address] [place] [address] [email or web address] Radiation Oncology 07/01/25 Additional Source Comments The information contained in this document represents components of the legal health record. It is not the complete legal health record.[facility]
--- OUTSIDE RECORDS SUMMARY | 2025-08-25 12:25 | XMS_ITS | Clinical Summary ---
Author Organization [facility] [employer] [facility] Address [address] [facility] [place] [address] Phone Care Team Providers Care Air Marshal Name Role Phone Phani Adams MD Primary Care Provider [phone] Allergies Active Allergy Reactions Criticality Noted Date Comments Cyclobenzaprine 06/10/2025 Dexamethasone Itching 08/14/2025 dexamethasone Oxybutynin 06/10/2025 Penicillins 08/07/2018 Sulfa (Sulfonamide Antibiotics) Pain 07/18 Medications clindamycin (CLEOCIN) 300 mg capsule Take [...] time each day. 5 03/19/20 26 Active famotidine (PEPCID) 40 mg tablet Take 1 tablet (40 mg total) by mouth 1 (one) time each day. Active bisacodyL (DULCOLAX) 5 mg EC tablet Take 2 tablets by mouth right before beginning bowel prep. See instructions provided by the office 2 tablet 5 Active polyethylene glycol (Golytely) 236-22.74-6.74 -5.86 gram solution Take 4L by mouth once for one dose. May substitue any PEG. Starting at 2PM the day before your procedure drink 1 8oz glasses at your own pace until you complete half of the gallon. Finish 2nd half of the gallon at 8PM. 4000 mL 5 Active tamsulosin (FLOMAX) 0.4 mg 24 hr capsule TAKE 1 CAPSULE ORAL DAILY. TAKE SEPARATELY FROM BLOOD PRESSURE MEDICINES BY AT LEAST 4 HOURS. 5 Active apalutamide (ERLEADA) 240 mg tablet Take 1 tablet (240 mg total) by mouth daily. 5 Active leuprolide (ELIGARD) 45 mg syringe Inject under the skin 1 (one) time. Active Hospital, Clinic, or Other Facility Administered Medication Ordered Dose Route Frequency Start Date End Date Status TC-99M tetrofosmin P radio-isotope injection 10.2 millicurie 10.2 millicurie IV Once in imaging 03/12/2025 Acti ve Active Problems Problem Noted Date Diagnosed Date Class 1 obesity 08/12/2025 Degeneration of cervical intervertebral disc GERD (gastroesophageal reflux disease) Lumbosacral radiculopathy 08/12/2025 Muscle pain 08/12/2025 Change in bowel function 08/12/2025 Colon cancer screening 08/12/2025 Malignant neoplasm of prostate ([facility] V24, [facility] V28) 07/10/2025 Abnormal ECG 01/27/2025 Assessment & Plan (01/27/2025 [...] artery disease with his mother having an WI in her 80s. Out of an abundance of caution we will arrange for an echocardiogram and nuclear stress test. It is cardiac testing is normal he can continue to follow-up with his primary care provider and return only as needed. 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 Stiffness of right knee 04/10/2018 Overview (08/12/2025): Knee stiffness, right Status post total right knee replacement 018 Overview (08/12/2025): Status post total right knee replacement Encounters Date Type Department Care Team Description 08/19/2025 Results Follow-Up Gastroenterology - 299 [facility] [address] [phone] Jean Osuna MD 08/14/2025 12:17 PM EDT Anesthesia Event [facility] Endoscopy [address] [place] [phone] Chio Ferrer MD Swanson, Mona, CRNA 08/14/2025 11:20 AM EDT - 08/14/2025 11:59 PM EDT Hospital Encounter [facility] [address] [place] [phone] Jean Osuna MD Swanson, Mona, CRNA Kriz, Petra, MD Change in bowel function Discharge Disposition: Home or Self Care 08/12/2025 11:00 AM EDT Consult Gastroenterology - [address] [place] [facility] [address] [place] [phone] Jean Osuna MD Change in bowel function (Primary Dx); Colon cancer screening 07/22/2025 Results Follow-Up [facility] Cardiology [facility] [address] [place] [address] Dana Chong NP 07/18/2025 2:00 PM EDT Ancillary Procedure [facility] Cardiology [facility] - [address] [place] [phone] Hypertension, unspecified type; Abnormal ECG from Last 3 Months Surgical History Surgery Date Site/Laterality Comments TOTAL KNEE ARTHROPLASTY Right PROCEDURE: HISTORICAL TOTAL KNEE REPLACE TONSILLECTOMY BACK SURGERY COLONOSCOPY SHOULDER SURGERY Bilateral Medical History Medical History Date Comments Hypertension [...] Sign Reading Time Taken Comments Blood Pressure 135/62 08/14/2025 12:57 PM EDT Pulse 48 08/14/2025 12:57 PM EDT Temperature 35.8 C (96.5 F) 08/14/2025 11:42 AM EDT Respiratory Rate 16 08/14/2025 12:57 PM EDT Oxygen Saturation 98% 08/14/2025 12:57 PM EDT Inhaled Oxygen Concentration - - Weight 90.7 kg (200 lb) 08/14/2025 11:42 AM EDT Height 177.8 cm (5' 10 ) 08/14/2025 11:42 AM EDT Body Mass Index 28.7 08/14/2025 11:42 AM EDT Plan of Treatment Health Maintenance Due Date Last Done Comments DTaP,Tdap,and Td Vaccines (1 - Tdap) 1972 Pneumococcal Vaccine: 50+ Years (1 of 1 - PCV) 2003 RSV Immunization Adult Patients (1 - Risk 50-74 years 1-dose series) 2003 Zoster Vaccines (2 of 3) 2015 10/06/2015 Cholesterol Screening (Lipid Panel) 09/18/2022 Hepatitis C Screening 09/18/2022 Medicare Annual Wellness Visit 09/18/2022 Social Influencers of Health Screening 09/18/2022 Depression Screening 10/16/2024 COVID-19 Vaccine (4 - 2024-2 6 season) 2025 08/30/2022, 12/04/2020, 11/06/2020 Influenza Vaccine (#1) 2025 08/30/2022 Hypertension/CHF/CAD Annual BMP Blood Test 07/10/2026 07/10/2025 Falls Risk Assessment 08/14/2026 08/14/2025 Colorectal Cancer Screening: Colonoscopy 08/14/2028 08/14/2025 Colorectal Cancer Screening: FIT-DNA (Cologuard) Discontinued 08/30/2022, 08/30/2022, 08/13/2019 HIB Vaccines Aged Out No longer eligi [...] 20 months Aged Out No longer eligible based on patient's age to complete this topic Varicella Vaccines Aged Out No longer eligible based on patient's age to complete this topic Goals Goal Patient Goal Type Associated Problems Recent Progress Patient-Stated? Author Autogenerat ed Goal Care Plan Autogenerated Problem No [employer] Implanted Type Area Email Specialist Device Identifier Shelf Expiration Date Model / Serial / Lot Joints Knee Joints Knee Right: Knee Procedures Procedure Name Priority Date/Time Associated Diagnosis Comments COLONOSCOPY Routine 08/14/2025 12:36 PM EDT Change in bowel function TISSUE EXAM Routine 08/14/2025 12:27 PM EDT Change in bowel function TRANSTHORACIC ECHOCARDIOGRAM (TTE) COMPLETE Routine 07/18/2025 2:40 PM EDT Hypertension, unspecified type Abnormal ECG from Last 3 Months Results * COLONOSCOPY [facility] [place] [facility] (08/14/2025 12:36 PM EDT) Anatomical Region Laterality Modality Endoscopy 08/14/2025 12:2 0 PM EDT Impressions 08/14/2025 12:42 PM EDT - Five 4 to 6 mm polyps in the cecum, removed with a cold snare. Resected and retrieved. - One 5 mm polyp in the transverse colon, removed with a cold snare. Resected and retrieved. - The examination was otherwise normal on direct and retroflexion views. Recommendation: - Await pathology results. - Repeat colonoscopy in 3 years for surveillance. Narrative 08/14/2025 12:42 PM EDT [facility] GI Patient Name: Chencho Segura Procedure Date: 08/14/2025 12:20 PM Date of : 1955 Age: 69 Room: ROOM 16 Gender: Male Note Status: Finalized Attending MD: Jean Osuna MD, Procedure Date No Time: 08/14/2025 Procedure: Colonoscopy Indications: Screening for colorectal malignant neoplasm Providers: Jean Osuna MD Referring MD: Jean Osuna MD Medicines: Propofol per Anesthesia Complications: No immediate complications. Estimated Blood Loss: Estimated blood loss was minimal. Procedure: Pre-Anesthesia Assessment: - ASA Grade Assessment: II - A patient with mild systemic disease. After I obtained informed consent, the scope was passed under direct vision. Throughout the procedure, the patient's blood pressure, pulse, and oxygen saturations were monitored continuously.The Colonoscope was introduced through the anus and advanced to the cecum, identified by appendiceal orifice and ileocecal valve. The colonoscopy was performed without difficulty. The patient tolerated the procedure well. The quality of the bowel preparation was good. Findings: The perianal and digital rectal examinations were normal. Five sessile polyps were found in the cecum. The polyps were 4 to 6 mm in size. These polyps were removed with a cold snare. Resection and retrieval were complete. A 5 mm polyp was found in the transverse colon. The polyp was sessile. The polyp was removed with a cold snare. Resection and retrieval were complete. The exam was otherwise without abnormality on direct and retroflexion views. Procedure Code(s): --- Professional --- 90526, Colonoscopy, flexible; with removal of tumor(s), polyp(s), or other lesion(s) by snare technique Diagnosis Code(s): --- Professional --- Z12.11, Encounter for screening for malignant neoplasm of colon D12.0, Benign neoplasm of cecum D12.3, Benign neoplasm of transverse colon (hepatic flexure or splenic flexure) CPT copyright 2020 [employer]. All rights reserved. The codes documented in this report are preliminary and upon crew foreman review may be revised to meet current compliance requirements. Jean Osuna MD 08/14/2025 12:42:30 PM This report has been signed electronically.Jean Osuna MD Number of Addenda: 0 Note Initiated On: 08/14/2025 12:20 PM Scope In: Scope Out: Endoscopy Department at [facility] - [address] [place] [phone] Procedure Note Jean Osuna MD - 08/14/2025 [facility] Patient Name: Chencho Segura Procedure Date: 08/14/2025 12:20 PM Date of : 1955 Age: 69 Room: ROOM 16 Gender: Male Note Status: Finalized Attending MD: Jean Osuna MD, Procedure Date No Time: 08/14/2025 Procedure: Colonoscopy Indications: Screening for colorectal malignant neoplasm Providers: Jean Osuna MD Referring MD: Jean Osuna MD Medicines: Propofol per Anesthesia Complications: No immediate complications. Estimated Blood Loss: Estimated blood loss was minimal. Procedure: Pre-Anesthesia Assessment: - ASA Grade Assessment: II - A patient with mild systemic disease. After I obtained informed consent, the scope was passed under direct vision. Throughout theprocedure, the patient's blood pressure, pulse, and oxygen saturations were monitored continuously.The Colonoscope was introduced through the anus and advanced to the cecum, identified by appendiceal orifice and ileocecal valve. The colonoscopy was performed without difficulty. The patient tolerated the procedure well. The quality of the bowel preparation was good. Findings: The perianal and digital rectal examinations were normal. Five sessile polyps were found in the cecum. The polyps were 4 to 6 mm in size. These polyps were removed with a cold snare. Resection and retrieval were complete. A 5 mm polyp was found in the transverse colon. The polyp was sessile. The polyp was removed with acold snare. Resection and retrieval were complete. The exam was otherwise without abnormality ondirect and retroflexion views. Procedure Code(s): --- Professional --- 06196, Colonoscopy, flexible; with removal of tumor(s), polyp(s), or other lesion(s) by snare technique Diagnosis Code(s): --- Professional --- Z12.11, Encounter for screening for malignantneoplasm of colon D12.0, Benign neoplasm of cecum D12.3, Benign neoplasm of transverse colon (hepatic flexure or splenic flexure) CPT copyright 2020 [employer]. All rights reserved. The codes documented in this report are preliminary and upon crew foreman reviewmay be revised to meet current compliance requirements. Jean Osuna MD 08/14/2025 12:42:30 PM This report has been signed electronically.Jean Osuna MD Number of Addenda: 0 Note Initiated On: 08/14/2025 12:20 PM Scope In: Scope Out: Endoscopy Department at [facility] - [address] [place] [phone] IMPRESSION: - Five 4 to 6 mm polyps in the cecum, removed with a cold snare. Resected and retrieved. - One 5 mm polyp in the transverse colon, removedwith a cold snare. Resected and retrieved. - The examination was otherwise normal on directand retroflexion views. Recommendation: - Await pathology results. - Repeat colonoscopy in 3 years for surveillance. us Jean Osuna MD GI~PROCEDURE ORDERABLES Fin al Result * Tissue exam (08/14/2025 12:27 PM EDT) Final Diagnosis A. Polyps (x5 per specimen label), cecum, polypectomy: - Tubular adenoma(s) (multiple fragments). B. Polyp, transverse colon, polypectomy: - Colonic mucosa with a lymphoid aggregate; otherwise no diagnostic histopathologic change. Note: Multiple additional levels are examined for blocks A1 and B1. 08/18/2025 9:34 AM EST [facility] ([facility] at 0934 EST Gross Description A. Large Intestine, Cecum, polyps x5: Labeled colon, cecum polyps x 5 . Received in formalin, are seven irregular soft to rubbery, frank-pink to red, polypoid tissue fragments, approximately ranging from 0.2 cm to 0.5 cm in greatest diameters, four polypoid tissue fragments are inked green at the margin, which are wrapped in paper and submitted in toto in one cassette, seven pieces, multiple levels. Please note: Small tissue fragments may not survive processing. B. Large Intestine, Transverse Colon, polyp x1: Labeled trans colon polyp x 1 . Received in formalin, is an approximately 0.25 cm in greatest diameter soft to rubbery, frank-pink, polypoid tissue fragment, inked green at the margin, admixed with fecal/food debris, which is wrapped in paper and submitted in toto in one cassette, one piece, multiple levels. hs/DG 08/18/2025 9:34 AM EST [facility] Disclaimer Unless otherwise specified, all tissue is 10% NB formalin fixed and paraffin embedded. 08/18/2025 9:34 AM EST [facility] Tissue Cecum structure / Unknown 08/14/2025 12:27 PM EDT 08/14/2025 2:17 PM EDT Tissue specimen (specimen) Transverse colon structure / Unknown 08/14/2025 12:31 PM EDT 08/14/2025 2:17 PM EDT us Jean Osuna MD LAB PATHOLOGY ORDERABLES Fi nal Result [facility] ([facility] [address] [place] [address], [place] [phone] * (ABNORMAL) TRANSTHORACIC ECHOCARDIOGRAM (TTE) COMPLETE (07/18/2025 2:40 PM EDT) Left Atrium Minor [place] 5.7 cm CV PACS Left Atrium Major [place] 6.2 cm CV PACS [place] Area Sys [...] S' 17 cm/s CV PACS RA Major [place] 5.3 cm CV PACS RA Major [place] Index 2.5 2.1 - 2.7 cm/m2 CV [...] The left ventricular wall motion is normal. 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
--- OUTSIDE RECORDS SUMMARY | 2025-08-25 12:25 | XMS_ITS | Encounter Summary ---
Author Organization [facility] Address [address] [place] [address] Care Team Providers Care State Director Name Role Phone Phani Adams MD Primary Care Provider [phone] Encounter Details Date Type Department Care Team (Late st Contact Info) Description 07/22/2025 Results Follow-Up [facility] [address] [place] [id number] Dana Chong NP [address] [place] [address] Dr Lawson [address] [place] [address] Social History Tobacco Use Types [...] on file documented as of this encounter Visit Diagnoses Not on filedocumented in this encounter Care Teams State Director Relationship Specialty Start Date End Date Phani Adams MD [address] [place] [phone] PCP - General Retail Branch Manager 06/05/17 documented as of this encounter
--- OUTSIDE RECORDS SUMMARY | 2025-08-25 12:25 | XMS_ITS | Encounter Summary ---
Author Organization [facility] Address [address] [facility] [address] [place] [address] Phone Care Team Providers Care Ginner Name Role Phone Phani Ruggiero MD Primary Care Provider Self-Referred, Patient Unavailable Unavailab Ozzy Gurrola MD Unavailable [phone] Edwin Mccormack MD Unavailable Justen Taylor MD Unavailable Encounter Details Date Type Department Care Team (Late st Contact Info) Description 08/20/2025 Orders Only [facility] [address] [facility] [address]nd [place] [address] Edwin Mccormack MD [address] [place] [phone] maria Gastroesophageal reflux disease without esophagitis (Primary Dx) Social History Tobacco Use Types [...] Description 09/10/2025 1:00 PM EST Office Visit [facility] Rad Onc [address] [place] [address] Adriano Calvillo MD [address] [place] [address] [email or web address] 09/29/2025 1:00 PM EST Treatment [facility] Rad Onc [address] [place] [address] Adriano Calvillo MD [address] [place] [address] [email or web address] 09/30/2025 1:00 PM EST Treatment [facility] Rad Onc [address] [place] [address] Adriano Calvillo MD [address] [place] [address] [email or web address] 10/01/2025 1:00 PM EST Treatment [facility] Rad Onc [address] [place] [address] Adriano Calvillo MD [address] [place] [address] [email or web address] 10/02/2025 1:00 PM EST Treatment [facility] Onc [address] [place] [address] Adriano Calvillo MD [address] [place] [address] [email or web address] 10/03/2025 1:00 PM EST Treatment [facility] Rad Onc [address] [place] [address] Adriano Calvillo MD [address] [place] [phone] [email or web address] 10/06/2025 1:00 PM EST Treatment [facility] Rad Onc [address] [place] [address] Adriano Calvillo MD [address] [place] [address] [email or web address] 10/07/2025 1:00 PM EST Treatment [facility] Rad Onc [address] [place] [address] Adriano Calvillo MD [address] [place] [phone] [email or web address] 10/08/2025 1:00 PM EST Treatment [facility] Rad [address] [address] Adriano Calvillo MD [address] [place] [phone] [email or web address] 10/10/2025 1:00 PM EST Treatment [facility] Rad Onc [address] [place] [address] Adriano Calvillo MD [address] [place] [phone] [email or web address] 10/13/2025 1:00 PM EST Treatment [facility] Rad Onc [address] [place] [address] Adriano Calvillo MD [address] [place] [address] [email or web address] 10/14/2025 1:00 PM EST Treatment [facility] Rad Onc [address] [place] [address] Adriano Calvillo MD [address] [place] [address] [email or web address] 10/15/2025 1:00 PM EST Treatment [facility] Rad Onc [address] [place] [address] Adriano Calvillo MD [address] [place] [address]06 [email or web address] 10/17/2025 1:00 PM EST Treatment [facility] Rad Onc [address] [place] [address] Adriano Calvillo MD [address] [place] [address] [email or web address] 10/20/2025 1:00 PM EST Treatment [facility] Rad Onc [address] [place] [address] Adriano Calvillo MD [address] [place] [address] [email or web address] 10/21/2025 1:00 PM EST Treatment [facility] Rad Onc [address] [place] [address] Adriano Calvillo MD [address] [place] [address] [phone] [email or web address] 10/22/2025 1:00 PM EST Treatment [facility] Rad Onc [address] [place] [address] Adriano Calvillo MD [address] [place] [address] 34027 [email or web address] 10/23/2025 1:00 PM EST Treatment [facility] Rad Onc [address] [place] [address] Adriano Calvillo MD [address] [place] [address] 30547 [email or web address] 10/24/2025 1:00 PM EST Treatment [facility] Rad Onc [address] [place] [address] Adriano Calvillo MD [address] [place] [address] 58388 [email or web address] 10/27/2025 1:00 PM EST Treatment [facility] Rad [address] [address] Adriano Calvillo MD [address] [place] [address] [email or web address] 10/28/2025 1:00 PM EST Treatment [facility] Rad Onc [address] [place] [address] 80[address] Adriano Calvillo MD [address] [place] [address] 28183 [email or web address] 10/29/2025 1:00 PM EST Treatment [facility] Rad Onc [address] [place] [address] Adriano Calvillo MD [address] [place] [address] [phone] [email or web address] 10/30/2025 1:00 PM EST Treatment [facility] Rad Onc [address] [place] [address] 80094 Adriano Calvillo MD [address] [place] [address] 15448 [email or web address] 10/31/2025 1:00 PM EST Treatment [facility] Rad Onc [address] [place] [address] 69[address] Adriano Calvillo MD [address] [place] [address] 24067 [email or web address] 11/04/2025 1:00 PM EST Treatment [facility] Rad Onc [address] [place] [address] Adriano Calvillo MD [address] [place] [address] 58442 [email or web address] 11/05/2025 1:00 PM EST Treatment [facility] Rad Onc [address] [place] [address] 19673 Adriano Calvillo MD [address] [place] [address]74 [email or web address] 11/06/2025 1:00 PM EST Treatment [facility] Rad Onc [address] [place] [address] Adriano Calvillo MD [address] [place] [address] 21925 [email or web address] 11/07/2025 1:00 PM EST Treatment [facility] Rad Onc [address] [place] [address] Adriano Calvillo MD [address] [place] [address] 42801 [email or web address] 11/10/2025 1:00 PM EST Treatment [facility] Rad Onc [address] [place] [address] Adriano Calvillo MD [address] [place] [address] 54120 [email or web address] 11/11/2025 1:00 PM EST Treatment [facility] Rad Onc [address] [place] [address] 59564 Adriano Calvillo MD [address] [place] [address] 00728 [email or web address] 11/12/2025 1:00 PM EST Treatment [facility] Rad Onc [address] [place] [address] Adriano Calvillo MD [address] [place] [address] 33266 [email or web address] 11/13/2025 1:00 PM EST Treatment [facility] Rad Onc [address] [place] [address] 95661 Adriano Calvillo MD [address] [place] [address] 49176 [email or web address] 11/14/2025 1:00 PM EST Treatment [facility] Rad Onc [address] [place] [address] 54963 Adriano Calvillo MD [address] [place] [address]37 [email or web address] 11/17/2025 1:00 PM EST Treatment [facility] Rad Onc [address] [place] [address] 380[address] Adriano Calvillo MD [address] [place] [address]38 [email or web address] 11/18/2025 1:00 PM EST Treatment [facility] Rad Onc [address] [place] [address] 49962 Adriano Calvillo MD [address] [place] [address] 57016 [email or web address] 11/19/2025 10:10 AM EST Blood Draw [facility], Phlebotomy Services [address] [address] Edwin Mccormack MD [address] [place] [phone] [email or web address] 11/19/2025 11:00 AM EST Office Visit [facility] at [address] [address] Edwin Mccormack MD [address] [place] [phone] [email or web address] 11/19/2025 1:00 PM EST Treatment [facility] Rad Onc [address] [place] [address] Adriano Calvillo MD [address] [place] [address] [phone] [email or web address] 11/20/2025 1:00 PM EST Treatment [facility] Rad Onc [address] [place] [address] Adriano Calvillo MD [address] [place] [address] [email or web address] 11/21/2025 1:00 PM EST Treatment [facility] Rad Onc [address] [place] [address] 13436 Adriano Calvillo MD [address] [place] [address] 94712 [email or web address] 11/24/2025 1:00 PM EST Treatment [facility] Rad Onc [address] [place] [address] Adriano Calvillo MD [address] [place] [address] [email or web address] 11/25/2025 1:00 PM EST Treatment [facility] Onc [address] [place] [address] Adriano Calvillo MD [address] [place] [address] [email or web address] Scheduled Orders Name Type Priority Associated Diagnoses Orde r Schedule CBC and Differential Lab Routine Gastroesophageal reflux disease without esophagitis Expected: 08/20/2025, Expires: 08/20/2026 Comprehensive Metabolic Panel (CMP) Lab Routine Gastroesophageal reflux disease without esophagitis Expected: 08/20/2025, Expires: 08/20/2026 Testosterone, Total Lab Routine Gastroesophageal reflux disease without esophagitis Expected: 08/20/2025, Expires: 08/20/2026 PSA, Total with Reflex to PSA, Free (Non-MGB) Lab Routine Gastroesophageal reflux disease without esophagitis Expected: 08/20/2025, Expires: 08/20/2026 documented as of this encounter Goals Goal Patient Goal Type Associated Problems Recent Progress Patient-Stated? Author Autogenerat ed Goal Care Plan Autogenerated Problem No [employer], Admin documented as of this encounter Visit Diagnoses Diagnosis Gastroesophageal reflux disease without esophagitis- Primary Esophageal reflux documented in this encounter Additional Health Concerns Active Problems Noted Date Diagnosed Date Autogenerated Problem 08/21/2025 documented as of this encounter Care Teams Ginner Relationship Specialty Start Date End Date Phani Ruggiero MD [address] [place] [address] [address] [place] [address] PCP - General Internal Medicine 05/30/25 Self-Referred, Patient Referring Physician 05/30/25 Ozzy Hernandez MD [address] [facility] [address] [place] [address] [email or web address] Referring Physician Urology 06/02/25 Edwin Mccormack MD [address] [place] [phone] [email or web address] Medical Oncology 06/02/25 Justen Taylor MD [address] [place] [address] [email or web address] Radiation Oncology 07/01/25 documented as of this encounter Additional Source Comments The information contained in this document represents components of the legal health record. It is not the complete legal health record.[facility]
--- OUTSIDE RECORDS SUMMARY | 2025-08-25 12:25 | XMS_ITS | Encounter Summary ---
Author Organization [facility] Address [address] [facility] [address] [place] [phone] Phone Care Team Providers Care Senior Housekeeper Name Role Phone Phani Ruggiero MD Primary Care Provider Self-Referred, Patient Unavailable Unavailab Ozzy Gurrola MD Unavailable Edwin Mccormack MD Unavailable Justen Taylor MD Unavailable Encounter Details Date Type Department Care Team (Late st Contact Info) Description 08/21/2025 Procedure Pass OR Admitting Dept - Virtual Department [address] [place] [address] Social History Tobacco Use Types Packs/Day Years [...] 10:19 AM Hodan Saleem nd, RN * [place] Suicide Severity Rating Scale (Screener/Recent Self-Report) Question Answer Date of Assessment Author 2. Non-Specific Active Suicidal Thoughts (Past 1 Month) No 08/21/2025 10:19 AM Matthew Casas RN documented as of this encounter Plan of Treatment Upcoming Encounters Date Type Department Care Team (Late st Contact Info) Description 09/10/2025 1:00 PM EST Office Visit [facility] Rad Onc [address] [place] [address] Adriano Calvillo MD [address] [place] [phone] [email or web address] 09/29/2025 1:00 PM EST Treatment [facility] Rad Onc [address] [place] [address] Adriano Calvillo MD [address] [place] [phone] [email or web address] 09/30/2025 1:00 PM EST Treatment [facility] Rad [address] [address] Adriano Calvillo MD [address] [place] [phone] [email or web address] 10/01/2025 1:00 PM EST Treatment [facility] Rad Onc [address] [place] [address] Adriano Calvillo MD [address] [place] [phone] [email or web address] 10/02/2025 1:00 PM EST Treatment [facility] Rad Onc [address] [place] [address] Adriano Calvillo MD [address] [place] [address] [phone] [email or web address] 10/03/2025 1:00 PM EST Treatment [facility] Rad Onc [address] [place] [address] Adriano aClvillo MD [address] [place] [phone] [email or web address] 10/06/2025 1:00 PM EST Treatment [facility] Rad Onc [address] [place] [address] Adriano Calvillo MD [address] [place] [phone] [email or web address] 10/07/2025 1:00 PM EST Treatment [facility] Rad Onc [address] [place] [address] Adriano Calvillo MD [address] [place] [address] [phone] [email or web address] 10/08/2025 1:00 PM EST Treatment [facility] Rad Onc [address] [place] [address] Adriano Calvillo MD [address] [place] [phone] [email or web address] 10/10/2025 1:00 PM EST Treatment [facility] Rad Onc [address] [place] [address] Adriano Calvillo MD [address] [place] [address] [phone] [email or web address] 10/13/2025 1:00 PM EST Treatment [facility] Rad Onc [address] [place] [address] Adriano Calvillo MD [address] [place] [phone] [email or web address]@[email or web address] 10/14/2025 1:00 PM EST Treatment [facility] Rad Onc [address] [place] [address] Adriano Calvillo MD [address] [place] [phone] [email or web address] 10/15/2025 1:00 PM EST Treatment [facility] Rad Onc [address] [place] [address] Adriano Calvillo MD [address] [place] [address] [phone] [email or web address] 10/17/2025 1:00 PM EST Treatment [facility] Rad Onc [address] [place] [address] Adriano Calvillo MD [address] [place] [address] [phone] [email or web address] 10/20/2025 1:00 PM EST Treatment [facility] Rad Onc [address] [place] [address] Adriano Calvillo MD [address] [place] [address] [phone] [email or web address] 10/21/2025 1:00 PM EST Treatment [facility] Rad Onc [address] [place] [address] Adriano Calvillo MD [address] [place] [address] [phone] [email or web address] 10/22/2025 1:00 PM EST Treatment [facility] Rad Onc [address] [place] [address] Adriano Calvillo MD [address] [place] [address] [phone] [email or web address] 10/23/2025 1:00 PM EST Treatment [facility] Rad Onc [address] [place] [address] Adriano Calvillo MD [address] [place] [address] [phone] [email or web address]@[email or web address] 10/24/2025 1:00 PM EST Treatment [facility] Rad Onc [address] [place] [address] Adriano Calvillo MD [address] [place] [phone] [email or web address] 10/27/2025 1:00 PM EST Treatment [facility] Rad Onc [address] [place] [address] Adriano Calvillo MD [address] [place] [address] [phone] DAVION@[email or web address] 10/28/2025 1:00 PM EST Treatment [facility] Rad Onc [address] [place] [address] Adriano Calvillo MD [address] [place] [address] [phone] DAVION@[email or web address] 10/29/2025 1:00 PM EST Treatment [facility] Rad Onc [address] [place] [address] Adriano Calvillo MD [address] [place] [address] [phone] DAVION@[email or web address] 10/30/2025 1:00 PM EST Treatment [facility] Rad Onc [address] [place] [address] Adriano Calvillo MD [address] [place] [address] [phone] DAVION@[email or web address] 10/31/2025 1:00 PM EST Treatment [facility] Onc [address] [place] [address] Adriano Calvillo MD [address] [place] [address] [phone] [email or web address]@[email or web address] 11/04/2025 1:00 PM EST Treatment [facility] Rad Onc [address] [place] [address] 527[address] Adriano Calvillo MD [address] [place] [address] [phone] DAVION@[email or web address] 11/05/2025 1:00 PM EST Treatment [facility] Rad Onc [address] [place] [address] Adriano Calvillo MD [address] [place] [address] 10613 [email or web address] 11/06/2025 1:00 PM EST Treatment [facility] Rad Onc [address] [place] [address] Adriano Calvillo MD [address] [place] [address] 11506 [email or web address]@[email or web address] 11/07/2025 1:00 PM EST Treatment [facility] Rad Onc [address] [place] [address] Adriano Calvillo MD [address] [place] [address] 38592 [email or web address] 11/10/2025 1:00 PM EST Treatment [facility] Rad Onc [address] [place] [address] Adriano Calvillo MD [address] [place] [address] [phone] DAVION@[facility] 11/11/2025 1:00 PM EST Treatment [facility] Rad Onc [address] [place] [address] Adriano Calvillo MD [address] [place] [address] [phone] [email or web address] 11/12/2025 1:00 PM EST Treatment [facility] Rad Onc [address] [place] [address] Adriano Calvillo MD [address] [place] [address] [phone] [email or web address] 11/13/2025 1:00 PM EST Treatment [facility] Rad Onc [address] [place] [address] Adriano Calvillo MD [address] [place] [address] [phone] [email or web address] 11/14/2025 1:00 PM EST Treatment [facility] Rad Onc [address] [place] [address] Adriano Calvillo MD [address] [place] [address] 55081 [email or web address]@[email or web address] 11/17/2025 1:00 PM EST Treatment [facility] Rad Onc [address] [place] [address] Adriano Calvillo MD [address] [place] [address] [phone] DAVION@[email or web address] 11/18/2025 1:00 PM EST Treatment [facility] Rad Onc [address] [place] [address] Adriano Calvillo MD [address] [place] [address] [phone] [email or web address]@[email or web address] 11/19/2025 10:10 AM EST Blood Draw [facility] at [facility], Phlebotomy Services [address] [place] [address] Edwin Mccormack MD [address] [place] [phone] [email or web address] 11/19/2025 11:00 AM EST Office Visit [facility] at [address] [address] Edwin Mccormack MD [address] [place] [phone] [email or web address] 11/19/2025 1:00 PM EST Treatment [facility] Rad Onc [address] [place] [address] Adriano Calvillo MD [address] [place] [address] [phone] DAVION@[facility] 11/20/2025 1:00 PM EST Treatment [facility] Rad Onc [address] [place] [address] Adriano Calvillo MD [address] [place] [address] 14333 DAVION@[facility] 11/21/2025 1:00 PM EST Treatment [facility] Rad Onc [address] [place] [address] Adriano Calvillo MD [address] [place] [address] [phone] [email or web address]@[email or web address] 11/24/2025 1:00 PM EST Treatment [facility] Rad Onc [address] [place] [address] Adriano Calvillo MD [address] [place] [address] [email or web address] 11/25/2025 1:00 PM EST Treatment [facility] Rad Onc [address] [place] [address] Adriano Calvillo MD [address] [place] [address] [email or web address] documented as of this encounter Goals Goal Patient Goal Type Associated Problems Recent Progress Patient-Stated? Author Autogenerat ed Goal Care Plan Autogenerated Problem No [employer], Admin documented as of this encounter Visit Diagnoses Not on filedocumented in this encounter Additional Health Concerns Active Problems Noted Date Diagnosed Date Autogenerated Problem 08/21/2025 documented as of this encounter Care Teams Senior Housekeeper Relationship Specialty Start Date End Date Phani Ruggiero MD [address] [place] [phone] PCP - General Internal Medicine 05/30/25 Self-Referred, Patient Referring Physician 05/30/25 Ozzy Hernandez MD [address] [place] [address] [address] [place] [address] [email or web address] Referring Physician Urology 06/02/25 Edwin Mccormack MD [address] [place] [phone] [email or web address] Medical Oncology 06/02/25 Justen Taylor MD [address] [place] [address] [email or web address] Radiation Oncology 07/01/25 documented as of this encounter Additional Source Comments The information contained in this document represents components of the legal health record. It is not the complete legal health record.[facility]
--- OUTSIDE RECORDS SUMMARY | 2025-08-25 12:25 | XMS_ITS | Encounter Summary ---
Author Organization [facility] Address [address] [place] [phone] Phone Care Team Providers Care Americanization Teacher Name Role Phone Phani Ruggiero MD Primary Care Provider Self-Referred, Patient Unavailable Unavailab Ozzy Gurrola MD Unavailable Edwin Mccormack MD Unavailable Justen Taylor MD Unavailable Reason for Visit * Reason Onset Date Comments Ksenia 06/11/2025 Encounter Details Date Type Department Care Team (Late st Contact Info) Description 06/11/2025 Telephone [facility] at [address] [address] [address] [place] [phone] [email or web address] Ksenia Social History Tobacco Use Types Packs/Day [...] Tang - 06/11/2025 10:29 AM EDT Patient Biology Laboratory Assistant Message: Caller Requesting callback? Yes Reason for Call: disk Pt called and was making sure the office received the disk for tomorrow appointment pt would like acall back documented in this encounter Plan of Treatment Upcoming Encounters Date Type Department Care Team (Late st Contact Info) Description 09/10/2025 1:00 PM EST Office Visit [facility] Rad Onc [address] [place] [address] Adriano Calvillo MD [address] [place] [id number] [email or web address] 09/29/2025 1:00 PM EST Treatment [facility] Onc [address] [place] [address] Adriano Calvillo MD [address] [place] [phone] [email or web address] 09/30/2025 1:00 PM EST Treatment [facility] Rad Onc [address] [place] [address] Adriano Calvillo MD [address] [place] [phone] [email or web address] 10/01/2025 1:00 PM EST Treatment [facility] Rad Onc [address] [place] [address] Adriano Calvillo MD [address] [place] [phone] [email or web address] 10/02/2025 1:00 PM EST Treatment [facility] Rad Onc [address] [place] [address] Adriano Calvillo MD [address] [place] [address] [phone] [email or web address] 10/03/2025 1:00 PM EST Treatment [facility] Rad Onc [address] [place] [address] 229[address] Adriano Calvillo MD [address] [place] [address] [phone] [email or web address] 10/06/2025 1:00 PM EST Treatment [facility] Rad Onc [address] [place] [address] Adriano Calvillo MD [address] [place] [address] [id number] [email or web address] 10/07/2025 1:00 PM EST Treatment [facility] Rad Onc [address] [place] [address] Adriano Calvillo MD [address] [place] [address] [phone] [email or web address] 10/08/2025 1:00 PM EST Treatment [facility] Rad Onc [address] [place] [address] Adriano Calvillo MD [address] [place] [address] 50721 [email or web address] 10/10/2025 1:00 PM EST Treatment [facility] Rad Onc [address] [place] [address] Adriano Calvillo MD [address] [place] [address] [phone] [email or web address] 10/13/2025 1:00 PM EST Treatment [facility] Rad Onc [address] [place] [address] 124[address] Adriano Calvillo MD [address] [place] [address] [id number] [email or web address] 10/14/2025 1:00 PM EST Treatment [facility] Rad Onc [address] [place] [address] Adriano Calvillo MD [address] [place] [address] [phone] [email or web address] 10/15/2025 1:00 PM EST Treatment [facility] Rad Onc [address] [place] [address] Adriano Calvillo MD [address] [place] [address] [phone] [email or web address] 10/17/2025 1:00 PM EST Treatment [facility] Rad Onc [address] [place] [address] Adriano Calvillo MD [address] [place] [address] 56969 [email or web address] 10/20/2025 1:00 PM EST Treatment [facility] Rad Onc [address] [place] [address] 32094 Adriano Calvillo MD [address] [place] [address] [phone] [email or web address]@[email or web address] 10/21/2025 1:00 PM EST Treatment [facility] Rad Onc [address] [place] [address] Adriano Calvillo MD [address] [place] [address] 31641 DAVION@[facility] 10/22/2025 1:00 PM EST Treatment [facility] Rad Onc [address] [place] [address] 06266 Adriano Calvillo MD [address] [place] [address] [phone] [email or web address]@[facility] 10/23/2025 1:00 PM EST Treatment [facility] Rad Onc [address] [place] [address] 19924 Adriano Calvillo MD [address] [place] [address] [phone] [email or web address]@[facility] 10/24/2025 1:00 PM EST Treatment [facility] Rad [address] [address] Adriano Calvillo MD [address] [place] [address] 33842 [email or web address] 10/27/2025 1:00 PM EST Treatment [facility] Rad Onc [address] [place] [address] 61085 Adriano Calvillo MD [address] [place] [address] [phone] [email or web address] 10/28/2025 1:00 PM EST Treatment [facility] Rad Onc [address] [place] [address] 30[address] Adriano Calvillo MD [address] [place] [address] [id number] DAVION@[facility] 10/29/2025 1:00 PM EST Treatment [facility] Rad Onc [address] [place] [address] Adriano Calvillo MD [address] [place] [address] 71382 DAVION@[facility] 10/30/2025 1:00 PM EST Treatment [facility] Rad Onc [address] [place] [address] 11790 Adriano Calvillo MD [address] [place] [address] [id number] DAVION@[facility] 10/31/2025 1:00 PM EST Treatment [facility] Rad Onc [address] [place] [address] Adriano Calvillo MD [address] [place] [address] [id number] [email or web address]@[email or web address] 11/04/2025 1:00 PM EST Treatment [facility] Rad Onc [address] [place] [address] Adriano Calvillo MD [address] [place] [address] [phone] [email or web address]@[email or web address] 11/05/2025 1:00 PM EST Treatment [facility] Rad Onc [address] [place] [address] Adriano Calvillo MD [address] [place] [address] 85617 [email or web address]@[facility] 11/06/2025 1:00 PM EST Treatment [facility] Rad Onc [address] [place] [address] 12229 Adriano Calvillo MD [address] [place] [address] [phone] [email or web address]@[facility] 11/07/2025 1:00 PM EST Treatment [facility] Rad Onc [address] [place] [address] Adriano Calvillo MD [address] [place] [address] [phone] [email or web address]@[facility] 11/10/2025 1:00 PM EST Treatment [facility] Rad Onc [address] [place] [address] 543[address] Adriano Calvillo MD [address] [place] [address] 36029 DAVION@[facility] 11/11/2025 1:00 PM EST Treatment [facility] Rad Onc [address] [place] [address] Adriano Calvillo MD [address] [place] [address] [phone] [email or web address] 11/12/2025 1:00 PM EST Treatment [facility] Rad Onc [address] [place] [address] Adriano Calvillo MD [address] [place] [address] [phone] [email or web address] 11/13/2025 1:00 PM EST Treatment [facility] Rad Onc [address] [place] [address] 44414 Adriano Calvillo MD [address] [place] [address] 42863 [email or web address] 11/14/2025 1:00 PM EST Treatment [facility] Rad Onc [address] [place] [address] 43938 Adriano Calvillo MD [address] [place] [address] 33845 [email or web address] 11/17/2025 1:00 PM EST Treatment [facility] Rad Onc [address] [place] [address] 78086 Adriano Calvillo MD [address] [place] [address] [phone] DAVION@[facility] 11/18/2025 1:00 PM EST Treatment [facility] Rad Onc [address] [place] [address] Adriano Calvillo MD [address] [place] [address] [phone] [email or web address]@[email or web address] 11/19/2025 10:10 AM EST Blood Draw [facility] at [facility]le[facility] [address] [place] [address] Edwin Mccormack MD [address] [place] [phone] [email or web address] 11/19/2025 11:00 AM EST Office Visit [facility] at [address] [address] Edwin Mccormack MD [address] [place] [phone] [email or web address] 11/19/2025 1:00 PM EST Treatment [facility] Rad Onc [address] [place] [address] Adriano Calvillo MD [address] [place] [phone] [email or web address]@[facility] 11/20/2025 1:00 PM EST Treatment [facility] Rad Onc [address] [place] [address] Adriano Calvillo MD [address] [place] [address] [phone] [email or web address]@[facility] 11/21/2025 1:00 PM EST Treatment [facility] Rad Onc [address] [place] [address] Adriano Calvillo MD [address] [place] [address] [phone] [email or web address] 11/24/2025 1:00 PM EST Treatment [facility] Rad Onc [address] [place] [address] Adriano Calvillo MD [address] [place] [address] [phone] [email or web address] 11/25/2025 1:00 PM EST Treatment [facility] Rad Onc [address] [place] [address] Adriano Calvillo MD [address] [place] [address] 36459 [email or web address] documented as of this encounter Visit Diagnoses Not on filedocumented in this encounter Care Teams Americanization Teacher Relationship Specialty Start Date End Date Phani Ruggiero MD [address] [place] [address] PCP - General Internal Medicine 05/30/25 Self-Referred, Patient Referring Physician 05/30/25 Ozzy Hernandez MD [address] [place] [address] [address] [place] [address] [email or web address] Referring Physician Urology 06/02/25 Edwin Mccormack MD [address] [place] [phone] [email or web address] Medical Oncology 06/02/25 Justen Taylor MD [address] [place] [address] [place] [address] [email or web address] Radiation Oncology 07/01/25 documented as of this encounter Additional Source Comments The information contained in this document represents components of the legal health record. It is not the complete legal health record.[facility]
== END 2025-08-25 10:35 | disposition home or self-care (01) ==
LOC: HO.HAP 10:34
PROVIDERS: Visit Provider Nurse Practitioner Family
DX: Z13.89 Encounter for screening for other disorder (principal)